=== PATIENT | female | born 1965 | race Caucasian/White ===

== ENCOUNTER 2024-01-27 08:15 | Outpatient (RCR) | payer OTHER, SELFPAY ==
--- NOTE | 2023-10-17 14:30 | PT.OIE ---
Current Diagnoses Pain in right knee (10/17/23) Stiffness of right knee, not elsewhere classified (10/17/23) Other abnormalities of gait and mobility (10/17/23) Aftercare following joint replacement surgery (10/17/23) Presence of right artificial knee joint (10/17/23) Visit Care Team Role Provider Type Ernesto Garland MD Attending Provider Non-Staff Referring Provider Specialty: Orthopedics Address: [address] [place] [address], [id number] Email: Physical Therapy Initial Evaluation PT-OP-A Visit Information Start: 10/17/23 17:48 Freq: Status: Active Protocol: Document 10/17/23 13:45 DCW (Rec: 10/17/23 17:55 DCW [id number]) Out-Patient Physical Therapy Visit Information Visit Information Visit Type Initial Evaluation Visit Start Time 13:45 Visit Stop Time 14:30 Visit Number 1 Number of ERP ANALYST Visits 0 Evaluation Information Evaluation Date 10/17/23 PT-OP-B Current Condition Start: 10/17/23 17:48 Freq: Status: Active Protocol: Document 10/17/23 13:45 DCW (Rec: 10/17/23 17:55 DCW [id number]) Current Condition History of Current Condition Onset Date 10/10/23 Current Complaints Right knee pain and stiffness s/p R TKA History of Current Condition Pt is a 58 year old female presenting one week s/p right TKA. Pt notes biggest current limiting factor is pain. Feels post-op swelling and tightness is greatly restricting her mobility. Has been consistent so far with post-op HEP, including ankle pumps, heel slides, SAQ, LAQ, and knee flexion/extension stretches. Pt using FWW for gait, heavily using UEs for stability. Has been wearing compression stockings and icing regularly. Treatment Goals Patient/Caregiver Goals Long-term goal is to return to competitive roller skating PT-OP-C Subjective Start: 10/17/23 17:48 Freq: Status: Active Protocol: Document 10/17/23 13:45 DCW (Rec: 10/18/23 09:33 DCW [id number]) OP-PT Subjective Patient Comments Patient Comments Pt reports pain is currently her biggest complaint. Is currently better controlled with pain meds. Patient Questionnaires Lower Extremity Functional Scale LEFS Score 6/80 = 7.5% OP-PT Pain Assessment Pain Assessment Grid Paper Pain Assessment Grid Completed Yes Location Right Knee Intensity 4 Scale Used Numeric (0 - 10) Description Aching,Tightness,Throbbing Frequency Constant PT-OP-E Functional Tests Start: 10/17/23 17:48 Freq: Status: Active Protocol: Document 10/17/23 13:45 DCW (Rec: 10/18/23 09:33 DCW [id number]) Functional Tests 2 Minute Walk Test Distance 140' Device Used FWW Comments 1.17 ft/sec PT-OP-G Mobility & Gait Start: 10/17/23 17:48 Freq: Status: Active Protocol: Document 10/17/23 13:45 DCW (Rec: 10/18/23 09:33 DCW [id number]) OP Gait Assessment Comments Gait Comments Ambulates with no right knee flexion, moderate right antalgia. Pt uses a step- through gait pattern and heavily relies on her UEs for support. Stair Climbing Evaluation Evaluation Level of Assist On Stairs Contact Guard Assistance Devices Stair Climbing Assistive Devices Left Railing,Right Railing Technique/Endurance Stair Climbing Direction Ascend and Descend Stair Climbing Technique Step to Step Number of Steps Climbed 4 PT-OP-K Range of Motion Start: 10/17/23 17:48 Freq: Status: Active Protocol: Document 10/17/23 13:45 DCW (Rec: 10/17/23 17:55 DCW [id number]) Knee Goniometric Range of Motion Knee Right Knee ROM WFL No Patient Position Supine Flexion Active (degrees) 57 Flexion Passive (degrees) 65 Extension Active (degrees) 11 Extension Passive (degrees) 10 Knee ROM Limitations Knee ROM Limitations Soft Tissue Tightness,Muscle Weakness,Muscle Tone,Pain, Swelling PT-OP-M Strength Start: 10/17/23 17:48 Freq: Status: Active Protocol: Document 10/17/23 13:45 DCW (Rec: 10/18/23 09:33 DCW [id number]) Knee Strength Knee Manual Muscle Testing Right Flexion (S2) 2- Poor- Extension (L3) 2+ Poor+ PT-OP-Q Treatments Start: 10/17/23 17:48 Freq: Status: Active Protocol: Document 10/17/23 13:45 DCW (Rec: 10/17/23 17:55 DCW [id number]) Cardio Equipment Recumbent Bicycle Duration (Minutes) 8 Seat Position 2 Other Partial Rotations PT-OP-T Assessment and Plan Start: 10/17/23 17:48 Freq: Status: Active Protocol: Document 10/17/23 13:45 DCW (Rec: 10/18/23 09:41 DCW [id number]) Physical Therapy Assessment Rehab Potential Rehabilitation Potential Excellent Evaluation Complexity Number of Personal Factors/Comorbidities 1-2 Number of Body Systems Impaired 1-2 Clinical Presentation at Evaluation Stable Impairments Impairments Activity Tolerance,Functional Activities,Functional Mobility ,Gait,Integument,Pain,ROM,Soft Tissue Mobility,Strength, Transfers Goals Three Impairment Pt completes two minute walk test ambulating 140' Wood Tile Installer Goal (LTG) Pt to tolerate a full 6MWT without an assistive device, ambulating >1000' in order to demonstrate return to prior gait function LTG Duration 01/15/24 Two Impairment Right knee AROM limited 11?-57 ? Usp Goal (LTG) Pt to improve active knee ROM to 0?-120? 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 Pt is one week s/p R TKA, with expected limitations in ROM, strength, activity tolerance , and functional mobility, although is more limited in active flexion that expected at this point. Pt biggest limiting factor at this point is pain and edema. Should benefit greatly from skilled therapy focusing on edema and pain control, ROM, strengthening, gait/balance training, and improving activity tolerance. Physical Therapy Plan Frequency and Duration Frequency of Treatment 2x/Week Plan of Care Start Date 10/17/23 Plan of Care End Date 01/15/24 Therapeutic Interventions Therapeutic Interventions Balance Training,Gait Training ,Home Exercise Program,Joint Mobilizations,Manual Therapy, Neuromuscular Re-education, Patient/Caregiver Education, Self-Care/Home Management,Soft Tissue Mobilization,Taping, Therapeutic Activities, Therapeutic Exercises Modalities Cold Pack/Ice Massage,Electric Stimulation,Hot Packs, Ultrasound Next Visit Focus/Plan Next Note Type Treatment Note Next Visit Plan Knee ROM/strengthening, gait training
--- NOTE | 2023-10-17 14:30 | PT.OPPOC ---
Physical, Occupational & Speech Therapy At [facility] Current Diagnoses Pain in right knee (10/17/23) Stiffness of right knee, not elsewhere classified (10/17/23) Other abnormalities of gait and mobility (10/17/23) Aftercare following joint replacement surgery (10/17/23) Presence of right artificial knee joint (10/17/23) Visit Care Team Role Provider Type Ernesto Garland MD Attending Provider Non-Staff Referring Provider Specialty: Orthopedics Address: [address] [place] [address], [id number] Email: Plan Of Care PT-OP-T Assessment and Plan Start: 10/17/23 17:48 Freq: Status: Active Protocol: Document 10/17/23 13:45 DCW (Rec: 10/18/23 09:41 DCW [id number]) Physical Therapy Assessment Rehab Potential Rehabilitation Potential Excellent Evaluation Complexity Number of Personal Factors/Comorbidities 1-2 Number of Body Systems Impaired 1-2 Clinical Presentation at Evaluation Stable Impairments Impairments Activity Tolerance,Functional Activities,Functional Mobility ,Gait,Integument,Pain,ROM,Soft Tissue Mobility,Strength, Transfers Goals Three Impairment Pt completes two minute walk test ambulating 140' Detention Goal (LTG) Pt to tolerate a full 6MWT without an assistive device, ambulating >1000' in order to demonstrate return to prior gait function LTG Duration 01/15/24 Two Impairment Right knee AROM limited 11?-57 ? Detention Goal (LTG) Pt to improve active knee ROM to 0?-120? in order to return to prior levels of function and allow pt to return to hobby of competitive roller skating LTG Duration 01/15/24 One Impairment Pt does not have an appropriate home exercise program Short Term Goal (STG) Pt to be independent and compliant with an appropriate HEP STG Duration 11/17/23 Assessment Summary Assessment Pt presents with signs and symptoms consistent with referring diagnosis. Pt is one week s/p R TKA, with expected limitations in ROM, strength, activity tolerance, and functional mobility, although is more limited in active flexion that expected at this point. Pt biggest limiting factor at this point is pain and edema. Should benefit greatly from skilled therapy focusing on edema and pain control, ROM, strengthening, gait/balance training, and improving activity tolerance. Physical Therapy Plan Frequency and Duration Frequency of Treatment 2x/Week Plan of Care Start Date 10/17/23 Plan of Care End Date 01/15/24 Therapeutic Interventions Therapeutic Interventions Balance Training,Gait Training ,Home Exercise Program,Joint Mobilizations,Manual Therapy, Neuromuscular Re-education, Patient/Caregiver Education, Self-Care/Home Management,Soft Tissue Mobilization,Taping, Therapeutic Activities, Therapeutic Exercises Modalities Cold Pack/Ice Massage,Electric Stimulation,Hot Packs, Ultrasound Next Visit Focus/Plan Next Note Type Treatment Note Next Visit Plan Knee ROM/strengthening, gait training Plan of Care Dates Plan of Care Start Date 10/17/23 Plan of Care End Date 01/15/24 Electronically Signed by: Nicholas White, PT 10/18/23 0942 If you are in agreement with this Plan of Care, please return a signed and dated copy. I have reviewed this Plan of Care and certify that the skilled therapy services above are required to meet the patient?s needs. Physician Signature Date Printed Name and Credentials Clinical Instructor Signature Printed Name and Credentials
--- NOTE | 2023-10-20 14:33 | PT.OTN ---
Current Diagnoses Pain in right knee (10/20/23) Stiffness of right knee, not elsewhere classified (10/20/23) Other abnormalities of gait and mobility (10/20/23) Aftercare following joint replacement surgery (10/20/23) Presence of right artificial knee joint (10/20/23) Physical Therapy Treatment Note PT-OP-A Visit Information Start: 10/17/23 17:48 Freq: Status: Active Protocol: Document 10/20/23 13:45 DCW (Rec: 10/20/23 14:32 DCW [id number]) Out-Patient Physical Therapy Visit Information Visit Information Visit Type Treatment Note Visit Start Time 13:45 Visit Stop Time 14:30 Visit Number 2 Number of ANIMAL SHELTER SUPERVISOR Visits 0 Evaluation Information Evaluation Date 10/17/23 PT-OP-B Current Condition Start: 10/17/23 17:48 Freq: Status: Active Protocol: Document 10/17/23 13:45 DCW (Rec: 10/17/23 17:55 DCW [id number]) Current Condition History of Current Condition Onset Date 10/10/23 Current Complaints Right knee pain and stiffness s/p R TKA History of Current Condition Pt is a 58 year old female presenting one week s/p right TKA. Pt notes biggest current limiting factor is pain. Feels post-op swelling and tightness is greatly restricting her mobility. Has been consistent so far with post-op HEP, including ankle pumps, heel slides, SAQ, LAQ, and knee flexion/extension stretches. Pt using FWW for gait, heavily using UEs for stability. Has been wearing compression stockings and icing regularly. Treatment Goals Patient/Caregiver Goals Long-term goal is to return to competitive roller skating PT-OP-C Subjective Start: 10/17/23 17:48 Freq: Status: Active Protocol: Document 10/20/23 13:45 DCW (Rec: 10/20/23 14:33 DCW [id number]) OP-PT Subjective Patient Comments Patient Comments Pt still struggling with pain, but some things are a little better, so I should try to focus on that. PT-OP-E Functional Tests Start: 10/17/23 17:48 Freq: Status: Active Protocol: Document 10/17/23 13:45 DCW (Rec: 10/18/23 09:33 DCW [id number]) Functional Tests 2 Minute Walk Test Distance 140' Device Used FWW Comments 1.17 ft/sec PT-OP-G Mobility & Gait Start: 10/17/23 17:48 Freq: Status: Active Protocol: Document 10/17/23 13:45 DCW (Rec: 10/18/23 09:33 DCW [id number]) OP Gait Assessment Comments Gait Comments Ambulates with no right knee flexion, moderate right antalgia. Pt uses a step- through gait pattern and heavily relies on her UEs for support. Stair Climbing Evaluation Evaluation Level of Assist On Stairs Contact Guard Assistance Devices Stair Climbing Assistive Devices Left Railing,Right Railing Technique/Endurance Stair Climbing Direction Ascend and Descend Stair Climbing Technique Step to Step Number of Steps Climbed 4 PT-OP-K Range of Motion Start: 10/17/23 17:48 Freq: Status: Active Protocol: Document 10/17/23 13:45 DCW (Rec: 10/17/23 17:55 DCW [id number]) Knee Goniometric Range of Motion Knee Right Knee ROM WFL No Patient Position Supine Flexion Active (degrees) 57 Flexion Passive (degrees) 65 Extension Active (degrees) 11 Extension Passive (degrees) 10 Knee ROM Limitations Knee ROM Limitations Soft Tissue Tightness,Muscle Weakness,Muscle Tone,Pain, Swelling PT-OP-M Strength Start: 10/17/23 17:48 Freq: Status: Active Protocol: Document 10/17/23 13:45 DCW (Rec: 10/18/23 09:33 DCW [id number]) Knee Strength Knee Manual Muscle Testing Right Flexion (S2) 2- Poor- Extension (L3) 2+ Poor+ PT-OP-Q Treatments Start: 10/17/23 17:48 Freq: Status: Active Protocol: Document 10/20/23 13:45 DCW (Rec: 10/20/23 14:32 DCW [id number]) Cardio Equipment Recumbent Bicycle Duration (Minutes) 6 Seat Position 3 Other Partial Rotations Gym Equipment Shuttle Recovery Bilateral Squats Resistance 25# Shuttle Recovery Platform Stable Therapeutic Exercises Supine Exercises SAQ Supine Exercise Name SAQ Side right Standing Exercises Flexion Standing Exercise Name Step flexion stretch Side right TKE Standing Exercise Name TKE Side right Resistance lV 2 Manual Therapy Treatment Joint Mobilizations Right knee Joint R knee Direction A<->P Grade III PT-OP-T Assessment and Plan Start: 10/17/23 17:48 Freq: Status: Active Protocol: Document 10/20/23 13:45 DCW (Rec: 10/20/23 14:32 DCW [id number]) Physical Therapy Assessment Impairments Impairments Activity Tolerance,Functional Activities,Functional Mobility ,Gait,Integument,Pain,ROM,Soft Tissue Mobility,Strength, Transfers Goals Three Impairment Pt completes two minute walk test ambulating 140' Custodial Goal (LTG) Pt to tolerate a full 6MWT without an assistive device, ambulating >1000' in order to demonstrate return to prior gait function LTG Duration 01/15/24 Two Impairment Right knee AROM limited 11?-57 ? Data Warehouse Manager Goal (LTG) Pt to improve active knee ROM to 0?-120? in order to return to prior levels of function and allow pt to return to hobby of competitive eLearning Connectionser skating LTG Duration 01/15/24 One Impairment Pt does not have an appropriate home exercise program Short Term Goal (STG) Pt to be independent and compliant with an appropriate HEP STG Duration 11/17/23 Assessment Summary Assessment Initially exhibiting decreased flexion to start today's appointment, 55?, improved to 67? with stretching and manual treatment. Continue with current HEP, addition of SAQ. Physical Therapy Plan Frequency and Duration Frequency of Treatment 2x/Week Plan of Care Start Date 10/17/23 Plan of Care End Date 01/15/24 Therapeutic Interventions Therapeutic Interventions Balance Training,Gait Training ,Home Exercise Program,Joint Mobilizations,Manual Therapy, Neuromuscular Re-education, Patient/Caregiver Education, Self-Care/Home Management,Soft Tissue Mobilization,Taping, Therapeutic Activities, Therapeutic Exercises Modalities Cold Pack/Ice Massage,Electric Stimulation,Hot Packs, Ultrasound Next Visit Focus/Plan Next Note Type Treatment Note Next Visit Plan Knee ROM/strengthening, gait training
--- NOTE | 2023-10-25 16:23 | PT.OTN ---
Current Diagnoses Pain in right knee (10/25/23) Stiffness of right knee, not elsewhere classified (10/25/23) Other abnormalities of gait and mobility (10/25/23) Aftercare following joint replacement surgery (10/25/23) Presence of right artificial knee joint (10/25/23) Physical Therapy Treatment Note PT-OP-A Visit Information Start: 10/17/23 17:48 Freq: Status: Active Protocol: Document 10/25/23 14:36 SW (Rec: 10/25/23 15:05 SW [id number]) Out-Patient Physical Therapy Visit Information Visit Information Visit Type Treatment Note Visit Start Time 14:31 Visit Stop Time 15:11 Visit Number 3 Number of WASHER HAND Visits 1 PT-OP-B Current Condition Start: 10/17/23 17:48 Freq: Status: Active Protocol: Document 10/17/23 13:45 DCW (Rec: 10/17/23 17:55 DCW [id number]) Current Condition History of Current Condition Onset Date 10/10/23 Current Complaints Right knee pain and stiffness s/p R TKA History of Current Condition Pt is a 58 year old female presenting one week s/p right TKA. Pt notes biggest current limiting factor is pain. Feels post-op swelling and tightness is greatly restricting her mobility. Has been consistent so far with post-op HEP, including ankle pumps, heel slides, SAQ, LAQ, and knee flexion/extension stretches. Pt using FWW for gait, heavily using UEs for stability. Has been wearing compression stockings and icing regularly. Treatment Goals Patient/Caregiver Goals Long-term goal is to return to competitive roller skating PT-OP-C Subjective Start: 10/17/23 17:48 Freq: Status: Active Protocol: Document 10/25/23 14:36 SW (Rec: 10/25/23 15:05 SW [id number]) OP-PT Subjective Patient Comments Patient Comments Pt reports 3/10 pain at rest. Reports decreased pain since last session. Bruising around the leg is uncomfortable. PT-OP-E Functional Tests Start: 10/17/23 17:48 Freq: Status: Active Protocol: Document 10/17/23 13:45 DCW (Rec: 10/18/23 09:33 DCW [id number]) Functional Tests 2 Minute Walk Test Distance 140' Device Used FWW Comments 1.17 ft/sec PT-OP-G Mobility & Gait Start: 10/17/23 17:48 Freq: Status: Active Protocol: Document 10/17/23 13:45 DCW (Rec: 10/18/23 09:33 DCW [id number]) OP Gait Assessment Comments Gait Comments Ambulates with no right knee flexion, moderate right antalgia. Pt uses a step- through gait pattern and heavily relies on her UEs for support. Stair Climbing Evaluation Evaluation Level of Assist On Stairs Contact Guard Assistance Devices Stair Climbing Assistive Devices Left Railing,Right Railing Technique/Endurance Stair Climbing Direction Ascend and Descend Stair Climbing Technique Step to Step Number of Steps Climbed 4 PT-OP-K Range of Motion Start: 10/17/23 17:48 Freq: Status: Active Protocol: Document 10/17/23 13:45 DCW (Rec: 10/17/23 17:55 DCW [id number]) Knee Goniometric Range of Motion Knee Right Knee ROM WFL No Patient Position Supine Flexion Active (degrees) 57 Flexion Passive (degrees) 65 Extension Active (degrees) 11 Extension Passive (degrees) 10 Knee ROM Limitations Knee ROM Limitations Soft Tissue Tightness,Muscle Weakness,Muscle Tone,Pain, Swelling PT-OP-M Strength Start: 10/17/23 17:48 Freq: Status: Active Protocol: Document 10/17/23 13:45 DCW (Rec: 10/18/23 09:33 DCW [id number]) Knee Strength Knee Manual Muscle Testing Right Flexion (S2) 2- Poor- Extension (L3) 2+ Poor+ PT-OP-Q Treatments Start: 10/17/23 17:48 Freq: Status: Active Protocol: Document 10/25/23 14:36 SW (Rec: 10/25/23 15:05 SW [id number]) Gym Equipment Shuttle Recovery Bilateral Squats Resistance 25# Shuttle Recovery Platform Stable Therapeutic Exercises Supine Exercises SAQ Supine Exercise Name SAQ Side right Sitting Exercises Flexion Sitting Exercise Name Knee flexion stretch Standing Exercises Flexion Standing Exercise Name Step flexion stretch Side right TKE Standing Exercise Name TKE Side right Resistance lV 2 Manual Therapy Treatment Joint Mobilizations Right knee Joint R knee Direction A<->P Grade III PT-OP-T Assessment and Plan Start: 10/17/23 17:48 Freq: Status: Active Protocol: Document 10/25/23 14:36 SW (Rec: 10/25/23 15:05 [id number]) Physical Therapy Assessment Goals Three Impairment Pt completes two minute walk test ambulating 140' Casino Gaming Inspector Goal (LTG) Pt to tolerate a full 6MWT without an assistive device, ambulating >1000' in order to demonstrate return to prior gait function LTG Duration 01/15/24 Two Impairment Right knee AROM limited 11?-57 ? Casino Gaming Inspector Goal (LTG) Pt to improve active knee ROM to 0?-120? in order to return to prior levels of function and allow pt to return to hobby of competitive [employer] skating LTG Duration 01/15/24 One Impairment Pt does not have an appropriate home exercise program Short Term Goal (STG) Pt to be independent and compliant with an appropriate HEP STG Duration 11/17/23 Assessment Summary Assessment Initially pt started out with 47 degrees of knee flexion AROM, 58 degrees post session AROM with improved knee flexion observed ambulating out of session. Focused on knee flexion this session to progress decreased knee flexion ROM. Pt education on taking breaks between icing instead of leaving ice machine on for prolonged periods of time to prevent adverse reaction. Physical Therapy Plan Frequency and Duration Frequency of Treatment 2x/Week Plan of Care Start Date 10/17/23 Plan of Care End Date 01/15/24 Therapeutic Interventions Therapeutic Interventions Balance Training,Gait Training ,Home Exercise Program,Joint Mobilizations,Manual Therapy, Neuromuscular Re-education, Patient/Caregiver Education, Self-Care/Home Management,Soft Tissue Mobilization,Taping, Therapeutic Activities, Therapeutic Exercises Modalities Cold Pack/Ice Massage,Electric Stimulation,Hot Packs, Ultrasound Next Visit Focus/Plan Next Note Type Treatment Note Next Visit Plan Knee ROM/strengthening, gait training
--- NOTE | 2023-10-28 10:30 | PT.OTN ---
Current Diagnoses Pain in right knee (10/28/23) Stiffness of right knee, not elsewhere classified (10/28/23) Other abnormalities of gait and mobility (10/28/23) Aftercare following joint replacement surgery (10/28/23) Presence of right artificial knee joint (10/28/23) Physical Therapy Treatment Note PT-OP-A Visit Information Start: 10/17/23 17:48 Freq: Status: Active Protocol: Document 10/28/23 09:45 DCW (Rec: 10/28/23 10:30 DCW [id number]) Out-Patient Physical Therapy Visit Information Visit Information Visit Type Treatment Note Visit Start Time 09:45 Visit Stop Time 10:35 Visit Number 4 Number of BUILDING MAINTENANCE SUPERVISOR Visits 0 Evaluation Information Evaluation Date 10/17/23 PT-OP-B Current Condition Start: 10/17/23 17:48 Freq: Status: Active Protocol: Document 10/17/23 13:45 DCW (Rec: 10/17/23 17:55 DCW [id number]) Current Condition History of Current Condition Onset Date 10/10/23 Current Complaints Right knee pain and stiffness s/p R TKA History of Current Condition Pt is a 58 year old female presenting one week s/p right TKA. Pt notes biggest current limiting factor is pain. Feels post-op swelling and tightness is greatly restricting her mobility. Has been consistent so far with post-op HEP, including ankle pumps, heel slides, SAQ, LAQ, and knee flexion/extension stretches. Pt using FWW for gait, heavily using UEs for stability. Has been wearing compression stockings and icing regularly. Treatment Goals Patient/Caregiver Goals Long-term goal is to return to competitive roller skating PT-OP-C Subjective Start: 10/17/23 17:48 Freq: Status: Active Protocol: Document 10/28/23 09:45 DCW (Rec: 10/28/23 10:30 DCW [id number]) OP-PT Subjective Patient Comments Patient Comments Pt had surgical follow-up, happy with overall extension, but agrees that pt having poor flexion. Has next follow-up at the end of October. PT-OP-E Functional Tests Start: 10/17/23 17:48 Freq: Status: Active Protocol: Document 10/17/23 13:45 DCW (Rec: 10/18/23 09:33 DCW [id number]) Functional Tests 2 Minute Walk Test Distance 140' Device Used FWW Comments 1.17 ft/sec PT-OP-G Mobility & Gait Start: 10/17/23 17:48 Freq: Status: Active Protocol: Document 10/17/23 13:45 DCW (Rec: 10/18/23 09:33 DCW [id number]) OP Gait Assessment Comments Gait Comments Ambulates with no right knee flexion, moderate right antalgia. Pt uses a step- through gait pattern and heavily relies on her UEs for support. Stair Climbing Evaluation Evaluation Level of Assist On Stairs Contact Guard Assistance Devices Stair Climbing Assistive Devices Left Railing,Right Railing Technique/Endurance Stair Climbing Direction Ascend and Descend Stair Climbing Technique Step to Step Number of Steps Climbed 4 PT-OP-K Range of Motion Start: 10/17/23 17:48 Freq: Status: Active Protocol: Document 10/17/23 13:45 DCW (Rec: 10/17/23 17:55 DCW [id number]) Knee Goniometric Range of Motion Knee Right Knee ROM WFL No Patient Position Supine Flexion Active (degrees) 57 Flexion Passive (degrees) 65 Extension Active (degrees) 11 Extension Passive (degrees) 10 Knee ROM Limitations Knee ROM Limitations Soft Tissue Tightness,Muscle Weakness,Muscle Tone,Pain, Swelling PT-OP-M Strength Start: 10/17/23 17:48 Freq: Status: Active Protocol: Document 10/17/23 13:45 DCW (Rec: 10/18/23 09:33 DCW [id number]) Knee Strength Knee Manual Muscle Testing Right Flexion (S2) 2- Poor- Extension (L3) 2+ Poor+ PT-OP-Q Treatments Start: 10/17/23 17:48 Freq: Status: Active Protocol: Document 10/28/23 09:45 DCW (Rec: 10/28/23 10:30 DCW [id number]) Cardio Equipment Recumbent Bicycle Duration (Minutes) 6 Seat Position 3 Other Partial Rotations Gym Equipment Shuttle Recovery Bilateral Squats Resistance 50# Shuttle Recovery Platform Stable Therapeutic Exercises Sitting Exercises Flexion Sitting Exercise Name Knee flexion stretch Manual Therapy Treatment Joint Mobilizations Right knee Joint R knee Direction A<->P Grade III PT-OP-R Modalities Start: 10/28/23 10:30 Freq: Status: Active Protocol: Document 10/28/23 09:45 DCW (Rec: 10/28/23 10:30 DCW [id number]) Hot Pack/Cold Pack Treatment Cold Pack Location R knee Patient Position Hooklying PT-OP-T Assessment and Plan Start: 10/17/23 17:48 Freq: Status: Active Protocol: Document 10/28/23 09:45 DCW (Rec: 10/28/23 10:30 DCW [id number]) Physical Therapy Assessment Impairments Impairments Activity Tolerance,Functional Activities,Functional Mobility ,Gait,Integument,Pain,ROM,Soft Tissue Mobility,Strength, Transfers Goals Three Impairment Pt completes two minute walk test ambulating 140' Application Services Manager Goal (LTG) Pt to tolerate a full 6MWT without an assistive device, ambulating >1000' in order to demonstrate return to prior gait function LTG Duration 01/15/24 Two Impairment Right knee AROM limited 11?-57 ? Intermediate Goal (LTG) Pt to improve active knee ROM to 0?-120? in order to return to prior levels of function and allow pt to return to hobby of competitive [employer] skating LTG Duration 01/15/24 One Impairment Pt does not have an appropriate home exercise program Short Term Goal (STG) Pt to be independent and compliant with an appropriate HEP STG Duration 11/17/23 Assessment Summary Assessment Pt continues to really struggle with flexion, limitations secondary to pain, joint effusion, and post-op bandaging. Spent increased time today focusing on joint mobs and flexion stretching. Physical Therapy Plan Frequency and Duration Frequency of Treatment 2x/Week Plan of Care Start Date 10/17/23 Plan of Care End Date 01/15/24 Therapeutic Interventions Therapeutic Interventions Balance Training,Gait Training ,Home Exercise Program,Joint Mobilizations,Manual Therapy, Neuromuscular Re-education, Patient/Caregiver Education, Self-Care/Home Management,Soft Tissue Mobilization,Taping, Therapeutic Activities, Therapeutic Exercises Modalities Cold Pack/Ice Massage,Electric Stimulation,Hot Packs, Ultrasound Next Visit Focus/Plan Next Note Type Treatment Note Next Visit Plan Knee ROM/strengthening, gait training
--- NOTE | 2023-10-31 12:40 | PT.OTN ---
Current Diagnoses Pain in right knee (10/31/23) Stiffness of right knee, not elsewhere classified (10/31/23) Other abnormalities of gait and mobility (10/31/23) Aftercare following joint replacement surgery (10/31/23) Presence of right artificial knee joint (10/31/23) Physical Therapy Treatment Note PT-OP-A Visit Information Start: 10/17/23 17:48 Freq: Status: Active Protocol: Document 10/31/23 11:55 DCW (Rec: 10/31/23 12:40 DCW [id number]) Out-Patient Physical Therapy Visit Information Visit Information Visit Type Treatment Note Visit Start Time 11:55 Visit Stop Time 12:45 Visit Number 5 Number of HOUSE STEWARD/STEWARDESS Visits 0 Evaluation Information Evaluation Date 10/17/23 PT-OP-B Current Condition Start: 10/17/23 17:48 Freq: Status: Active Protocol: Document 10/17/23 13:45 DCW (Rec: 10/17/23 17:55 DCW [id number]) Current Condition History of Current Condition Onset Date 10/10/23 Current Complaints Right knee pain and stiffness s/p R TKA History of Current Condition Pt is a 58 year old female presenting one week s/p right TKA. Pt notes biggest current limiting factor is pain. Feels post-op swelling and tightness is greatly restricting her mobility. Has been consistent so far with post-op HEP, including ankle pumps, heel slides, SAQ, LAQ, and knee flexion/extension stretches. Pt using FWW for gait, heavily using UEs for stability. Has been wearing compression stockings and icing regularly. Treatment Goals Patient/Caregiver Goals Long-term goal is to return to competitive roller skating PT-OP-C Subjective Start: 10/17/23 17:48 Freq: Status: Active Protocol: Document 10/31/23 11:55 DCW (Rec: 10/31/23 12:40 DCW [id number]) OP-PT Subjective Patient Comments Patient Comments Pt had a good workout Tuesday , notes she was pretty sore afterward. Has been able to do more stretching with hip flexors PT-OP-E Functional Tests Start: 10/17/23 17:48 Freq: Status: Active Protocol: Document 10/17/23 13:45 DCW (Rec: 10/18/23 09:33 DCW [id number]) Functional Tests 2 Minute Walk Test Distance 140' Device Used FWW Comments 1.17 ft/sec PT-OP-G Mobility & Gait Start: 10/17/23 17:48 Freq: Status: Active Protocol: Document 10/17/23 13:45 DCW (Rec: 10/18/23 09:33 DCW [id number]) OP Gait Assessment Comments Gait Comments Ambulates with no right knee flexion, moderate right antalgia. Pt uses a step- through gait pattern and heavily relies on her UEs for support. Stair Climbing Evaluation Evaluation Level of Assist On Stairs Contact Guard Assistance Devices Stair Climbing Assistive Devices Left Railing,Right Railing Technique/Endurance Stair Climbing Direction Ascend and Descend Stair Climbing Technique Step to Step Number of Steps Climbed 4 PT-OP-K Range of Motion Start: 10/17/23 17:48 Freq: Status: Active Protocol: Document 10/17/23 13:45 DCW (Rec: 10/17/23 17:55 DCW [id number]) Knee Goniometric Range of Motion Knee Right Knee ROM WFL No Patient Position Supine Flexion Active (degrees) 57 Flexion Passive (degrees) 65 Extension Active (degrees) 11 Extension Passive (degrees) 10 Knee ROM Limitations Knee ROM Limitations Soft Tissue Tightness,Muscle Weakness,Muscle Tone,Pain, Swelling PT-OP-M Strength Start: 10/17/23 17:48 Freq: Status: Active Protocol: Document 10/17/23 13:45 DCW (Rec: 10/18/23 09:33 DCW [id number]) Knee Strength Knee Manual Muscle Testing Right Flexion (S2) 2- Poor- Extension (L3) 2+ Poor+ PT-OP-Q Treatments Start: 10/17/23 17:48 Freq: Status: Active Protocol: Document 10/31/23 11:55 DCW (Rec: 10/31/23 12:40 DCW [id number]) Cardio Equipment Recumbent Bicycle Duration (Minutes) 6 Seat Position 3 Other Partial Rotations Gym Equipment Shuttle Recovery Bilateral Squats Resistance 50# Shuttle Recovery Platform Stable Therapeutic Ball Knee Flexion Exercise Details Knee Flexion /c Strap Ball Size/Color Red - 55 cm Body Position Supine Therapeutic Exercises Supine Exercises Wall slides Supine Exercise Name Wall slides into flexion stretch SAQ Supine Exercise Name SAQ Side right Manual Therapy Treatment Joint Mobilizations Patellar Joint R Petella Direction Inferior<->Superior Grade III Body Position Hooklying Right knee Joint R knee Direction A<->P Grade III Body Position Hooklying PT-OP-R Modalities Start: 10/28/23 10:30 Freq: Status: Active Protocol: Document 10/31/23 11:55 DCW (Rec: 10/31/23 12:40 DCW [id number]) Hot Pack/Cold Pack Treatment Cold Pack Location R knee Patient Position Hooklying Patient Tolerance Good PT-OP-T Assessment and Plan Start: 10/17/23 17:48 Freq: Status: Active Protocol: Document 10/31/23 11:55 DCW (Rec: 10/31/23 12:40 DCW [id number]) Physical Therapy Assessment Impairments Impairments Activity Tolerance,Functional Activities,Functional Mobility ,Gait,Integument,Pain,ROM,Soft Tissue Mobility,Strength, Transfers Goals Three Impairment Pt completes two minute walk test ambulating 140' Fdc Goal (LTG) Pt to tolerate a full 6MWT without an assistive device, ambulating >1000' in order to demonstrate return to prior gait function LTG Duration 01/15/24 Two Impairment Right knee AROM limited 11?-57 ? Nurse Monitoring Goal (LTG) Pt to improve active knee ROM to 0?-120? in order to return to prior levels of function and allow pt to return to hobby of competitive roller skating LTG Duration 01/15/24 One Impairment Pt does not have an appropriate home exercise program Short Term Goal (STG) Pt to be independent and compliant with an appropriate HEP STG Duration 11/17/23 Assessment Summary Assessment Showing some mild improvements with flexion, able to get to 65? with wall slide. Extension looking very good. Pt demonstrating improvement with knee flexion during gait. Physical Therapy Plan Frequency and Duration Frequency of Treatment 2x/Week Plan of Care Start Date 10/17/23 Plan of Care End Date 01/15/24 Therapeutic Interventions Therapeutic Interventions Balance Training,Gait Training ,Home Exercise Program,Joint Mobilizations,Manual Therapy, Neuromuscular Re-education, Patient/Caregiver Education, Self-Care/Home Management,Soft Tissue Mobilization,Taping, Therapeutic Activities, Therapeutic Exercises Modalities Cold Pack/Ice Massage,Electric Stimulation,Hot Packs, Ultrasound Next Visit Focus/Plan Next Note Type Treatment Note Next Visit Plan Knee ROM/strengthening, gait training
--- NOTE | 2023-11-04 11:20 | PT.OTN ---
Current Diagnoses Pain in right knee (11/04/23) Stiffness of right knee, not elsewhere classified (11/04/23) Other abnormalities of gait and mobility (11/04/23) Aftercare following joint replacement surgery (11/04/23) Presence of right artificial knee joint (11/04/23) Physical Therapy Treatment Note PT-OP-A Visit Information Start: 10/17/23 17:48 Freq: Status: Active Protocol: Document 11/04/23 10:00 NBM (Rec: 11/04/23 11:20 NBM [id number]) Out-Patient Physical Therapy Visit Information Visit Information Visit Type Treatment Note Visit Start Time 10:30 Visit Stop Time 11:16 Visit Number 6 Number of WASTEWATER OPERATOR Visits 1 PT-OP-B Current Condition Start: 10/17/23 17:48 Freq: Status: Active Protocol: Document 10/17/23 13:45 DCW (Rec: 10/17/23 17:55 DCW [id number]) Current Condition History of Current Condition Onset Date 10/10/23 Current Complaints Right knee pain and stiffness s/p R TKA History of Current Condition Pt is a 58 year old female presenting one week s/p right TKA. Pt notes biggest current limiting factor is pain. Feels post-op swelling and tightness is greatly restricting her mobility. Has been consistent so far with post-op HEP, including ankle pumps, heel slides, SAQ, LAQ, and knee flexion/extension stretches. Pt using FWW for gait, heavily using UEs for stability. Has been wearing compression stockings and icing regularly. Treatment Goals Patient/Caregiver Goals Long-term goal is to return to competitive roller skating PT-OP-C Subjective Start: 10/17/23 17:48 Freq: Status: Active Protocol: Document 11/04/23 10:00 NBM (Rec: 11/04/23 11:20 NBM [id number]) OP-PT Subjective Patient Comments Patient Comments Carina reports she pushes through her ex's three times a day and things seem to be getting better bit by bit. PT-OP-E Functional Tests Start: 10/17/23 17:48 Freq: Status: Active Protocol: Document 10/17/23 13:45 DCW (Rec: 10/18/23 09:33 DCW [id number]) Functional Tests 2 Minute Walk Test Distance 140' Device Used FWW Comments 1.17 ft/sec PT-OP-G Mobility & Gait Start: 10/17/23 17:48 Freq: Status: Active Protocol: Document 10/17/23 13:45 DCW (Rec: 10/18/23 09:33 DCW [id number]) OP Gait Assessment Comments Gait Comments Ambulates with no right knee flexion, moderate right antalgia. Pt uses a step- through gait pattern and heavily relies on her UEs for support. Stair Climbing Evaluation Evaluation Level of Assist On Stairs Contact Guard Assistance Devices Stair Climbing Assistive Devices Left Railing,Right Railing Technique/Endurance Stair Climbing Direction Ascend and Descend Stair Climbing Technique Step to Step Number of Steps Climbed 4 PT-OP-K Range of Motion Start: 10/17/23 17:48 Freq: Status: Active Protocol: Document 10/17/23 13:45 DCW (Rec: 10/17/23 17:55 DCW [id number]) Knee Goniometric Range of Motion Knee Right Knee ROM WFL No Patient Position Supine Flexion Active (degrees) 57 Flexion Passive (degrees) 65 Extension Active (degrees) 11 Extension Passive (degrees) 10 Knee ROM Limitations Knee ROM Limitations Soft Tissue Tightness,Muscle Weakness,Muscle Tone,Pain, Swelling PT-OP-M Strength Start: 10/17/23 17:48 Freq: Status: Active Protocol: Document 10/17/23 13:45 DCW (Rec: 10/18/23 09:33 DCW [id number]) Knee Strength Knee Manual Muscle Testing Right Flexion (S2) 2- Poor- Extension (L3) 2+ Poor+ PT-OP-Q Treatments Start: 10/17/23 17:48 Freq: Status: Active Protocol: Document 11/04/23 10:00 NBM (Rec: 11/04/23 11:20 NBM [id number]) Cardio Equipment Recumbent Bicycle Duration (Minutes) 6 Seat Position 3 Other Partial Rotations, cued for breathwork Gym Equipment Shuttle Recovery Bilateral Squats Resistance 50# Shuttle Recovery Platform Stable Reps/Time w/ breathwork Therapeutic Exercises Supine Exercises heel slides Side right Equipment Used slider sheet Reps/Minutes x10, x1 w/ overpressure Wall slides Supine Exercise Name Wall slides into flexion stretch Side right Equipment Used slider sheet Sitting Exercises Flexion Sitting Exercise Name Knee flex stretch: CKC edge of chair 2.[place] PROM foot on scooterboard Side right Equipment Used standard chair; scooterboard Reps/Minutes x10 ea Standing Exercises TKE Standing Exercise Name TKE Side right Resistance lV 2 Reps/Minutes x10, 10x2 breath hold Comments initial cues for full extension PT-OP-R Modalities Start: 10/28/23 10:30 Freq: Status: Active Protocol: Document 10/31/23 11:55 DCW (Rec: 10/31/23 12:40 DCW [id number]) Hot Pack/Cold Pack Treatment Cold Pack Location R knee Patient Position Hooklying Patient Tolerance Good PT-OP-T Assessment and Plan Start: 10/17/23 17:48 Freq: Status: Active Protocol: Document 11/04/23 10:00 NBM (Rec: 11/04/23 11:20 NBM [id number]) Physical Therapy Assessment Goals Three Impairment Pt completes two minute walk test ambulating 140' Custodial Goal (LTG) Pt to tolerate a full 6MWT without an assistive device, ambulating >1000' in order to demonstrate return to prior gait function LTG Duration 01/15/24 Two Impairment Right knee AROM limited 11?-57 ? Custodial Goal (LTG) Pt to improve active knee ROM to 0?-120? 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 Knee flexion improves on Shuttle Recovery from 61 deg to 69 deg , in sitting w/ foot on scooterboard and overpressure to 72 deg; supine from 68 deg to 72 deg AROM and 74 deg w/ overpressure. Pt's self- awareness for breathwork improves w/ initial cueing and repetition. Wall slides added to HEP using L knee flexion ROM as visual guide for R. Cryotherapy end of session. Pt notified Mon appt cancelled due to needing insurance authorization. Physical Therapy Plan Frequency and Duration Frequency of Treatment 2x/Week Plan of Care Start Date 10/17/23 Plan of Care End Date 01/15/24 Therapeutic Interventions Therapeutic Interventions Balance Training,Gait Training ,Home Exercise Program,Joint Mobilizations,Manual Therapy, Neuromuscular Re-education, Patient/Caregiver Education, Self-Care/Home Management,Soft Tissue Mobilization,Taping, Therapeutic Activities, Therapeutic Exercises Modalities Cold Pack/Ice Massage,Electric Stimulation,Hot Packs, Ultrasound Next Visit Focus/Plan Next Note Type Treatment Note Next Visit Plan Knee ROM/strengthening, gait training
--- NOTE | 2023-11-04 13:00 | PT.OTN ---
Current Diagnoses Pain in right knee (11/04/23) Stiffness of right knee, not elsewhere classified (11/04/23) Other abnormalities of gait and mobility (11/04/23) Aftercare following joint replacement surgery (11/04/23) Presence of right artificial knee joint (11/04/23) Physical Therapy Treatment Note PT-OP-A Visit Information Start: 10/17/23 17:48 Freq: Status: Active Protocol: Document 11/04/23 10:00 NBM (Rec: 11/04/23 11:20 NBM [id number]) Out-Patient Physical Therapy Visit Information Visit Information Visit Type Treatment Note Visit Start Time 10:30 Visit Stop Time 11:16 Visit Number 6 Number of BANKER MASON Visits 1 PT-OP-B Current Condition Start: 10/17/23 17:48 Freq: Status: Active Protocol: Document 10/17/23 13:45 DCW (Rec: 10/17/23 17:55 DCW [id number]) Current Condition History of Current Condition Onset Date 10/10/23 Current Complaints Right knee pain and stiffness s/p R TKA History of Current Condition Pt is a 58 year old female presenting one week s/p right TKA. Pt notes biggest current limiting factor is pain. Feels post-op swelling and tightness is greatly restricting her mobility. Has been consistent so far with post-op HEP, including ankle pumps, heel slides, SAQ, LAQ, and knee flexion/extension stretches. Pt using FWW for gait, heavily using UEs for stability. Has been wearing compression stockings and icing regularly. Treatment Goals Patient/Caregiver Goals Long-term goal is to return to competitive roller skating PT-OP-C Subjective Start: 10/17/23 17:48 Freq: Status: Active Protocol: Document 11/04/23 10:00 NBM (Rec: 11/04/23 11:20 NBM [id number]) OP-PT Subjective Patient Comments Patient Comments Carina reports she pushes through her ex's three times a day and things seem to be getting better bit by bit. PT-OP-E Functional Tests Start: 10/17/23 17:48 Freq: Status: Active Protocol: Document 10/17/23 13:45 DCW (Rec: 10/18/23 09:33 DCW [id number]) Functional Tests 2 Minute Walk Test Distance 140' Device Used FWW Comments 1.17 ft/sec PT-OP-G Mobility & Gait Start: 10/17/23 17:48 Freq: Status: Active Protocol: Document 10/17/23 13:45 DCW (Rec: 10/18/23 09:33 DCW [id number]) OP Gait Assessment Comments Gait Comments Ambulates with no right knee flexion, moderate right antalgia. Pt uses a step- through gait pattern and heavily relies on her UEs for support. Stair Climbing Evaluation Evaluation Level of Assist On Stairs Contact Guard Assistance Devices Stair Climbing Assistive Devices Left Railing,Right Railing Technique/Endurance Stair Climbing Direction Ascend and Descend Stair Climbing Technique Step to Step Number of Steps Climbed 4 PT-OP-K Range of Motion Start: 10/17/23 17:48 Freq: Status: Active Protocol: Document 10/17/23 13:45 DCW (Rec: 10/17/23 17:55 DCW [id number]) Knee Goniometric Range of Motion Knee Right Knee ROM WFL No Patient Position Supine Flexion Active (degrees) 57 Flexion Passive (degrees) 65 Extension Active (degrees) 11 Extension Passive (degrees) 10 Knee ROM Limitations Knee ROM Limitations Soft Tissue Tightness,Muscle Weakness,Muscle Tone,Pain, Swelling PT-OP-M Strength Start: 10/17/23 17:48 Freq: Status: Active Protocol: Document 10/17/23 13:45 DCW (Rec: 10/18/23 09:33 DCW [id number]) Knee Strength Knee Manual Muscle Testing Right Flexion (S2) 2- Poor- Extension (L3) 2+ Poor+ PT-OP-Q Treatments Start: 10/17/23 17:48 Freq: Status: Active Protocol: Document 11/04/23 10:00 NBM (Rec: 11/04/23 11:20 NBM [id number]) Cardio Equipment Recumbent Bicycle Duration (Minutes) 6 Seat Position 3 Other Partial Rotations, cued for breathwork Gym Equipment Shuttle Recovery Bilateral Squats Resistance 50# Shuttle Recovery Platform Stable Reps/Time w/ breathwork Therapeutic Exercises Supine Exercises heel slides Side right Equipment Used slider sheet Reps/Minutes x10, x1 w/ overpressure Wall slides Supine Exercise Name Wall slides into flexion stretch Side right Equipment Used slider sheet Sitting Exercises Flexion Sitting Exercise Name Knee flex stretch: [facility] edge of chair 2.[place] PROM foot on scooterboard Side right Equipment Used standard chair; scooterboard Reps/Minutes x10 ea Standing Exercises TKE Standing Exercise Name TKE Side right Resistance lV 2 Reps/Minutes x10, 10x2 breath hold Comments initial cues for full extension PT-OP-R Modalities Start: 10/28/23 10:30 Freq: Status: Active Protocol: Document 11/04/23 10:00 NBM (Rec: 11/04/23 13:00 NBM [id number]) Hot Pack/Cold Pack Treatment Cold Pack Location R knee Patient Position Hooklying Patient Tolerance Good PT-OP-T Assessment and Plan Start: 10/17/23 17:48 Freq: Status: Active Protocol: Document 11/04/23 10:00 NBM (Rec: 11/04/23 11:20 NBM [id number]) Physical Therapy Assessment Goals Three Impairment Pt completes two minute walk test ambulating 140' Longterm Goal (LTG) Pt to tolerate a full 6MWT without an assistive device, ambulating >1000' in order to demonstrate return to prior gait function LTG Duration 01/15/24 Two Impairment Right knee AROM limited 11?-57 ? Longterm Goal (LTG) Pt to improve active knee ROM to 0?-120? 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 Knee flexion improves on Shuttle Recovery from 61 deg to 69 deg , in sitting w/ foot on scooterboard and overpressure to 72 deg; supine from 68 deg to 72 deg AROM and 74 deg w/ overpressure. Pt's self- awareness for breathwork improves w/ initial cueing and repetition. Wall slides added to HEP using L knee flexion ROM as visual guide for R. Cryotherapy end of session. Pt notified Mon appt cancelled due to needing insurance authorization. Physical Therapy Plan Frequency and Duration Frequency of Treatment 2x/Week Plan of Care Start Date 10/17/23 Plan of Care End Date 01/15/24 Therapeutic Interventions Therapeutic Interventions Balance Training,Gait Training ,Home Exercise Program,Joint Mobilizations,Manual Therapy, Neuromuscular Re-education, Patient/Caregiver Education, Self-Care/Home Management,Soft Tissue Mobilization,Taping, Therapeutic Activities, Therapeutic Exercises Modalities Cold Pack/Ice Massage,Electric Stimulation,Hot Packs, Ultrasound Next Visit Focus/Plan Next Note Type Treatment Note Next Visit Plan Knee ROM/strengthening, gait training
--- NOTE | 2023-11-09 15:24 | PT.OTN ---
Current Diagnoses Pain in right knee (11/09/23) Stiffness of right knee, not elsewhere classified (11/09/23) Other abnormalities of gait and mobility (11/09/23) Aftercare following joint replacement surgery (11/09/23) Presence of right artificial knee joint (11/09/23) Physical Therapy Treatment Note PT-OP-A Visit Information Start: 10/17/23 17:48 Freq: Status: Active Protocol: Document 11/09/23 14:34 SP (Rec: 11/09/23 16:16 SP [id number]) Out-Patient Physical Therapy Visit Information Visit Information Visit Type Treatment Note Visit Start Time 14:34 Visit Stop Time 15:24 Visit Number 7 Number of NEUROUROLOGIST Visits 2 Evaluation Information Evaluation Date 10/17/23 PT-OP-B Current Condition Start: 10/17/23 17:48 Freq: Status: Active Protocol: Document 10/17/23 13:45 DCW (Rec: 10/17/23 17:55 DCW [id number]) Current Condition History of Current Condition Onset Date 10/10/23 Current Complaints Right knee pain and stiffness s/p R TKA History of Current Condition Pt is a 58 year old female presenting one week s/p right TKA. Pt notes biggest current limiting factor is pain. Feels post-op swelling and tightness is greatly restricting her mobility. Has been consistent so far with post-op HEP, including ankle pumps, heel slides, SAQ, LAQ, and knee flexion/extension stretches. Pt using FWW for gait, heavily using UEs for stability. Has been wearing compression stockings and icing regularly. Treatment Goals Patient/Caregiver Goals Long-term goal is to return to competitive roller skating PT-OP-C Subjective Start: 10/17/23 17:48 Freq: Status: Active Protocol: Document 11/09/23 14:34 SP (Rec: 11/09/23 16:16 SP [id number]) OP-PT Subjective Patient Comments Patient Comments Pt reports r knee still really tight, doing as best can gain ROM. PT-OP-E Functional Tests Start: 10/17/23 17:48 Freq: Status: Active Protocol: Document 10/17/23 13:45 DCW (Rec: 10/18/23 09:33 DCW [id number]) Functional Tests 2 Minute Walk Test Distance 140' Device Used FWW Comments 1.17 ft/sec PT-OP-G Mobility & Gait Start: 10/17/23 17:48 Freq: Status: Active Protocol: Document 10/17/23 13:45 DCW (Rec: 10/18/23 09:33 DCW [id number]) OP Gait Assessment Comments Gait Comments Ambulates with no right knee flexion, moderate right antalgia. Pt uses a step- through gait pattern and heavily relies on her UEs for support. Stair Climbing Evaluation Evaluation Level of Assist On Stairs Contact Guard Assistance Devices Stair Climbing Assistive Devices Left Railing,Right Railing Technique/Endurance Stair Climbing Direction Ascend and Descend Stair Climbing Technique Step to Step Number of Steps Climbed 4 PT-OP-K Range of Motion Start: 10/17/23 17:48 Freq: Status: Active Protocol: Document 10/17/23 13:45 DCW (Rec: 10/17/23 17:55 DCW [id number]) Knee Goniometric Range of Motion Knee Right Knee ROM WFL No Patient Position Supine Flexion Active (degrees) 57 Flexion Passive (degrees) 65 Extension Active (degrees) 11 Extension Passive (degrees) 10 Knee ROM Limitations Knee ROM Limitations Soft Tissue Tightness,Muscle Weakness,Muscle Tone,Pain, Swelling PT-OP-M Strength Start: 10/17/23 17:48 Freq: Status: Active Protocol: Document 10/17/23 13:45 DCW (Rec: 10/18/23 09:33 DCW [id number]) Knee Strength Knee Manual Muscle Testing Right Flexion (S2) 2- Poor- Extension (L3) 2+ Poor+ PT-OP-Q Treatments Start: 10/17/23 17:48 Freq: Status: Active Protocol: Document 11/09/23 14:34 SP (Rec: 11/09/23 16:16 SP [id number]) Therapeutic Exercises Supine Exercises knee hang Supine Exercise Name lower leg hang off edge table during manual Side right Comments good feedback tolerance, improved flexion post manual heel slides Supine Exercise Name 1. AAROM ft table 71* 2. AAROM over tball up to 73* Side right Resistance AROM-AAROM Equipment Used over tball Reps/Minutes much time spent Comments supported DF, Prone Exercises AAROM flexion, extension Prone Exercise Name R knee: AAROM flexion, AAROM supported ant) quad fac ext ( inhibition of HS) Side right Equipment Used R distal thigh over rolled towel Comments reports less pain in knee with active suported ext, low pain flexion Sitting Exercises Flexion Sitting Exercise Name Knee flex stretch: [place] PROM foot on 55cm tball (plinth) Side right Resistance A>AAROM Equipment Used 55cm tball Reps/Minutes x10 ea Comments reports less pain than hooklying, good self R hip on table Standing Exercises mini squat Standing Exercise Name trialed Resistance AROM- arms front/FWW if needed Reps/Minutes 2x5 reps Comments cued hip hinge, able get lower - reduction R knee stiffness calf raises Standing Exercise Name FWW support- inPT trialed Reps/Minutes x10 stepping Standing Exercise Name lateral Side bilateral Resistance AROM Reps/Minutes 20 ft x 2 laps Comments cued increase B knee march motion laterally Flexion Standing Exercise Name knee flexion AAROM/stretch- HEP reviewed Side right Equipment Used rail support, 2nd step Reps/Minutes x10 Comments 78* (end tx) Gait Training Gait Activity no AD Description gait phases in mirror Distance/Duration 30 ft x3 laps, 20 ft x3 laps each front mirror fwd/lateral Treatment Focus increase DESTINY, normalize gait phases on R LE. Comments cued increase hip and knee flexion, DF during advancement then knee extension into heel strike- improves mechanics of R LE advancement. stair mgt Description step to patterning Device Used L HR ascending/R descending Distance/Duration 4 x4 sets Treatment Focus R hip and knee flexion, DF asc , R knee ext heel strike desc Comments Ed increase R knee/hip/ankle ROM during trail LE asc, lead descending for functional mobility opportunity support normalizing carryover gait. FWW Description to/from waiting room Device Used FWW Level of Assistance I Treatment Focus increase R knee flexion, DF, normalizing gait Comments cued increase hip and knee flexion, DF during advancement then knee extension into heel strike Manual Therapy Treatment Soft Tissue Mobilization R hip Body Location PROM hip IR/ ER Mobilization Type Sustained Pressure,Other Intensity/Depth Moderate Comments PROM R leg tolerated knee flexion- sustained pressure piriformis and glut med distal att.- Good feedback less tension, more relaxed motion. R leg Body Location quad, HS, calf Mobilization Type Myofascial Release,Rolling, Other Intensity/Depth Moderate Body Position Supine, hooklying, prone Comments long axis, lower leg off end table, knee in flexion foot on table- ed use rolling pin self home gentle pressure tolerance. scar mobility Body Location R knee Body Position Supine Comments support medial & lateral of scar- sup/inf/Med/Lateral Joint Mobilizations R ankle Joint talocrual into DF, calcaneal med/lat, distal tibfib Direction AP Grade II Body Position Hooklying Comments R knee flexion /c PROM DF Patellar Joint R Patella Direction Inferior<->Superior Grade III Body Position Hooklying Comments R knee straight Right knee Joint R tibofemoral, prox fib Direction A<->P Grade III Body Position Hooklying Comments into various flexion ranges tolerant PT-OP-R Modalities Start: 10/28/23 10:30 Freq: Status: Active Protocol: Document 11/04/23 10:00 NBM (Rec: 11/04/23 13:00 NBM [id number]) Hot Pack/Cold Pack Treatment Cold Pack Location R knee Patient Position Hooklying Patient Tolerance Good PT-OP-T Assessment and Plan Start: 10/17/23 17:48 Freq: Status: Active Protocol: Document 11/09/23 14:34 SP (Rec: 11/09/23 16:16 SP [id number]) Physical Therapy Assessment Goals Three Impairment Pt completes two minute walk test ambulating 140' Detention Goal (LTG) Pt to tolerate a full 6MWT without an assistive device, ambulating >1000' in order to demonstrate return to prior gait function LTG Duration 01/15/24 Two Impairment Right knee AROM limited 11?-57 ? Detention Goal (LTG) Pt to improve active knee ROM to 0?-120? in order to return to prior levels of function and allow pt to return to hobby of competitive roller skating LTG Duration 01/15/24 One Impairment Pt does not have an appropriate home exercise program Short Term Goal (STG) Pt to be independent and compliant with an appropriate HEP STG Duration 11/17/23 Assessment Summary Assessment Tx focused on reduction tightness in R quad, R HS with including inhibition of HS, R piriformis and glut med, improved post manual and stepping motion and mini squats near chair. Ed for self scar mobility application during manual. Pt gained AAROM R knee 78deg end tx use step. 73* hooklying. Good feedback lateral, fwd stepping with cues for excentuate R hip and knee flexion and DF gait phases and mini squat to move R knee more and noted reduction in compensations walk in mirror unsupported. Physical Therapy Plan Frequency and Duration Frequency of Treatment 2x/Week Plan of Care Start Date 10/17/23 Plan of Care End Date 01/15/24 Therapeutic Interventions Therapeutic Interventions Balance Training,Gait Training ,Home Exercise Program,Joint Mobilizations,Manual Therapy, Neuromuscular Re-education, Patient/Caregiver Education, Self-Care/Home Management,Soft Tissue Mobilization,Taping, Therapeutic Activities, Therapeutic Exercises Modalities Cold Pack/Ice Massage,Electric Stimulation,Hot Packs, Ultrasound Next Visit Focus/Plan Next Note Type Treatment Note Next Visit Plan Continue: mini squat, gait phase stepping unsupported. HEP review. POC:Knee ROM/strengthening, gait training
--- NOTE | 2023-11-11 14:42 | PT.OTN ---
Current Diagnoses Pain in right knee (11/11/23) Stiffness of right knee, not elsewhere classified (11/11/23) Other abnormalities of gait and mobility (11/11/23) Aftercare following joint replacement surgery (11/11/23) Presence of right artificial knee joint (11/11/23) Physical Therapy Treatment Note PT-OP-A Visit Information Start: 10/17/23 17:48 Freq: Status: Active Protocol: Document 11/11/23 13:50 SP (Rec: 11/11/23 14:36 SP [id number]) Out-Patient Physical Therapy Visit Information Visit Information Visit Type Treatment Note Visit Start Time 13:50 Visit Stop Time 14:42 Visit Number 8 Number of OPERATIONS REPRESENTATIVE Visits 3 Evaluation Information Evaluation Date 10/17/23 PT-OP-B Current Condition Start: 10/17/23 17:48 Freq: Status: Active Protocol: Document 10/17/23 13:45 DCW (Rec: 10/17/23 17:55 DCW [id number]) Current Condition History of Current Condition Onset Date 10/10/23 Current Complaints Right knee pain and stiffness s/p R TKA History of Current Condition Pt is a 58 year old female presenting one week s/p right TKA. Pt notes biggest current limiting factor is pain. Feels post-op swelling and tightness is greatly restricting her mobility. Has been consistent so far with post-op HEP, including ankle pumps, heel slides, SAQ, LAQ, and knee flexion/extension stretches. Pt using FWW for gait, heavily using UEs for stability. Has been wearing compression stockings and icing regularly. Treatment Goals Patient/Caregiver Goals Long-term goal is to return to competitive roller skating PT-OP-C Subjective Start: 10/17/23 17:48 Freq: Status: Active Protocol: Document 11/11/23 13:50 SP (Rec: 11/11/23 14:36 SP [id number]) OP-PT Subjective Patient Comments Patient Comments Pt report sees Ortho 11/24. PT-OP-E Functional Tests Start: 10/17/23 17:48 Freq: Status: Active Protocol: Document 10/17/23 13:45 DCW (Rec: 10/18/23 09:33 DCW [id number]) Functional Tests 2 Minute Walk Test Distance 140' Device Used FWW Comments 1.17 ft/sec PT-OP-G Mobility & Gait Start: 10/17/23 17:48 Freq: Status: Active Protocol: Document 10/17/23 13:45 DCW (Rec: 10/18/23 09:33 DCW [id number]) OP Gait Assessment Comments Gait Comments Ambulates with no right knee flexion, moderate right antalgia. Pt uses a step- through gait pattern and heavily relies on her UEs for support. Stair Climbing Evaluation Evaluation Level of Assist On Stairs Contact Guard Assistance Devices Stair Climbing Assistive Devices Left Railing,Right Railing Technique/Endurance Stair Climbing Direction Ascend and Descend Stair Climbing Technique Step to Step Number of Steps Climbed 4 PT-OP-K Range of Motion Start: 10/17/23 17:48 Freq: Status: Active Protocol: Document 10/17/23 13:45 DCW (Rec: 10/17/23 17:55 DCW [id number]) Knee Goniometric Range of Motion Knee Right Knee ROM WFL No Patient Position Supine Flexion Active (degrees) 57 Flexion Passive (degrees) 65 Extension Active (degrees) 11 Extension Passive (degrees) 10 Knee ROM Limitations Knee ROM Limitations Soft Tissue Tightness,Muscle Weakness,Muscle Tone,Pain, Swelling PT-OP-M Strength Start: 10/17/23 17:48 Freq: Status: Active Protocol: Document 10/17/23 13:45 DCW (Rec: 10/18/23 09:33 DCW [id number]) Knee Strength Knee Manual Muscle Testing Right Flexion (S2) 2- Poor- Extension (L3) 2+ Poor+ PT-OP-Q Treatments Start: 10/17/23 17:48 Freq: Status: Active Protocol: Document 11/11/23 13:50 SP (Rec: 11/11/23 14:36 SP [id number]) Cardio Equipment Recumbent Elliptical ([employer]) Duration (Minutes) 6 Resistance 2 Seat Position 6>4 Other BUEs/ BLEs Gym Equipment Shuttle Recovery unilateral squat Resistance 25# tea Reps/Time 5 x2 Bilateral Squats Details R knee 83deg Resistance 50# (2 teal) Shuttle Recovery Platform Stable Reps/Time 2x8 reps Therapeutic Exercises Supine Exercises QS Supine Exercise Name R ankle elevated on tball between AAROM flexion, on table Side right Resistance over 55cm tball Equipment Used Strap on foot for self stability ft on tball Reps/Minutes 10 SH x5 reps -with less inhibit of HS/calf with cues for slow ROM Comments feels fine, improved femoral post glide on tibia post manual knee hang Supine Exercise Name lower leg hang off edge shuttle recovery Side right Comments good feedback tolerance, improved flexion heel slides Supine Exercise Name 1. AAROM ft table 78* 2. AAROM over tball up to 86* Side right Resistance AROM-AAROM Equipment Used over 55cm tball, strap Comments self supported DF Prone Exercises prone hang Prone Exercise Name R 4 deg ext Side bilateral Equipment Used towel rolls under distal quad comfort EOtable Reps/Minutes 30 sec Comments good feedback AAROM flexion, extension Prone Exercise Name R knee: AAROM flexion, AAROM supported ant) quad fac ext ( inhibition of HS) Side right Equipment Used R distal thigh over rolled towel Comments reports less pain in knee with active suported ext, low pain flexion Manual Therapy Treatment Soft Tissue Mobilization R hip Body Location PROM hip IR/ ER Mobilization Type Sustained Pressure,Other Intensity/Depth Moderate Body Position Prone Comments PROM R leg tolerated knee flexion- sustained pressure piriformis and glut med distal att.- Good feedback less tension, more relaxed motion. R leg Body Location quad, HS, calf Mobilization Type Myofascial Release,Rolling, Other Intensity/Depth Moderate Body Position Supine, hooklying, prone Comments long axis supported by OPERATIONS REPRESENTATIVE, lower leg off edge shuttle recovery Joint Mobilizations Patellar Joint R Patella Direction Inferior<->Superior Grade III Body Position Hooklying Comments R knee straight Right knee Joint 1.R tibofemoral 2.femoral on tibia long axis Direction A<->P Grade III Body Position Hooklying Comments 1. various flexion ranges tolerant contract quad, AAROM relax into flexion 2. lower leg supported by therapist, AP pnfree improved TKE QS PT-OP-R Modalities Start: 10/28/23 10:30 Freq: Status: Active Protocol: Document 11/11/23 13:50 SP (Rec: 11/11/23 14:36 SP [id number]) Hot Pack/Cold Pack Treatment Cold Pack Location R knee Patient Position Hooklying Patient Tolerance Good PT-OP-T Assessment and Plan Start: 10/17/23 17:48 Freq: Status: Active Protocol: Document 11/11/23 13:50 SP (Rec: 11/11/23 14:36 SP [id number]) Physical Therapy Assessment Goals Three Impairment Pt completes two minute walk test ambulating 140' Nursing Tech Goal (LTG) Pt to tolerate a full 6MWT without an assistive device, ambulating >1000' in order to demonstrate return to prior gait function LTG Duration 01/15/24 Two Impairment Right knee AROM limited 11?-57 ? Nursing Tech Goal (LTG) Pt to improve active knee ROM to 0?-120? 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 LTG Duration 01/15/24 progressing 11/11/23 One Impairment Pt does not have an appropriate home exercise program Short Term Goal (STG) Pt to be independent and compliant with an appropriate HEP 11/08-07/24: added mini squat, lateral stepping, heel toe gait. Heel slides use of strap foot on tball if beneficial and less pain. STG Duration 11/17/23 progressin11/11/23 Assessment Summary Assessment Pt making slow gains in ROM 4- 86deg R knee with manual support. Trialed use of biodex and shuttle recovery today for more active AAROM. Found contract relax technique provided increase ROM with support inhib HS recruitment into ext and better femoral posterior glide. Pt pretty sore end tx but please with ROM getting, welcoming to CP modality end tx. Ed hip & knee flexion ROM leaving for decreased stiffness. Physical Therapy Plan Frequency and Duration Frequency of Treatment 2x/Week Plan of Care Start Date 10/17/23 Plan of Care End Date 01/15/24 Therapeutic Interventions Therapeutic Interventions Balance Training,Gait Training ,Home Exercise Program,Joint Mobilizations,Manual Therapy, Neuromuscular Re-education, Patient/Caregiver Education, Self-Care/Home Management,Soft Tissue Mobilization,Taping, Therapeutic Activities, Therapeutic Exercises Modalities Cold Pack/Ice Massage,Electric Stimulation,Hot Packs, Ultrasound Next Visit Focus/Plan Next Note Type Treatment Note Next Visit Plan Continue: mini squat, gait phase stepping unsupported. HEP review. POC:Knee ROM/strengthening, gait training
--- NOTE | 2023-11-14 12:00 | PT.OTN ---
Current Diagnoses Pain in right knee (11/14/23) Stiffness of right knee, not elsewhere classified (11/14/23) Other abnormalities of gait and mobility (11/14/23) Aftercare following joint replacement surgery (11/14/23) Presence of right artificial knee joint (11/14/23) Physical Therapy Treatment Note PT-OP-A Visit Information Start: 10/17/23 17:48 Freq: Status: Active Protocol: Document 11/14/23 11:15 DCW (Rec: 11/14/23 12:00 DCW [id number]) Out-Patient Physical Therapy Visit Information Visit Information Visit Type Treatment Note Visit Start Time 11:15 Visit Stop Time 12:00 Visit Number 9 Number of LOOM REPAIRER Visits 0 Evaluation Information Evaluation Date 10/17/23 PT-OP-B Current Condition Start: 10/17/23 17:48 Freq: Status: Active Protocol: Document 10/17/23 13:45 DCW (Rec: 10/17/23 17:55 DCW [id number]) Current Condition History of Current Condition Onset Date 10/10/23 Current Complaints Right knee pain and stiffness s/p R TKA History of Current Condition Pt is a 58 year old female presenting one week s/p right TKA. Pt notes biggest current limiting factor is pain. Feels post-op swelling and tightness is greatly restricting her mobility. Has been consistent so far with post-op HEP, including ankle pumps, heel slides, SAQ, LAQ, and knee flexion/extension stretches. Pt using FWW for gait, heavily using UEs for stability. Has been wearing compression stockings and icing regularly. Treatment Goals Patient/Caregiver Goals Long-term goal is to return to competitive roller skating PT-OP-C Subjective Start: 10/17/23 17:48 Freq: Status: Active Protocol: Document 11/14/23 11:15 DCW (Rec: 11/14/23 12:00 DCW [id number]) OP-PT Subjective Patient Comments Patient Comments I've progressed myself to a SPC PT-OP-E Functional Tests Start: 10/17/23 17:48 Freq: Status: Active Protocol: Document 10/17/23 13:45 DCW (Rec: 10/18/23 09:33 DCW [id number]) Functional Tests 2 Minute Walk Test Distance 140' Device Used FWW Comments 1.17 ft/sec PT-OP-G Mobility & Gait Start: 10/17/23 17:48 Freq: Status: Active Protocol: Document 10/17/23 13:45 DCW (Rec: 10/18/23 09:33 DCW [id number]) OP Gait Assessment Comments Gait Comments Ambulates with no right knee flexion, moderate right antalgia. Pt uses a step- through gait pattern and heavily relies on her UEs for support. Stair Climbing Evaluation Evaluation Level of Assist On Stairs Contact Guard Assistance Devices Stair Climbing Assistive Devices Left Railing,Right Railing Technique/Endurance Stair Climbing Direction Ascend and Descend Stair Climbing Technique Step to Step Number of Steps Climbed 4 PT-OP-K Range of Motion Start: 10/17/23 17:48 Freq: Status: Active Protocol: Document 10/17/23 13:45 DCW (Rec: 10/17/23 17:55 DCW [id number]) Knee Goniometric Range of Motion Knee Right Knee ROM WFL No Patient Position Supine Flexion Active (degrees) 57 Flexion Passive (degrees) 65 Extension Active (degrees) 11 Extension Passive (degrees) 10 Knee ROM Limitations Knee ROM Limitations Soft Tissue Tightness,Muscle Weakness,Muscle Tone,Pain, Swelling PT-OP-M Strength Start: 10/17/23 17:48 Freq: Status: Active Protocol: Document 10/17/23 13:45 DCW (Rec: 10/18/23 09:33 DCW [id number]) Knee Strength Knee Manual Muscle Testing Right Flexion (S2) 2- Poor- Extension (L3) 2+ Poor+ PT-OP-Q Treatments Start: 10/17/23 17:48 Freq: Status: Active Protocol: Document 11/14/23 11:15 DCW (Rec: 11/14/23 12:00 DCW [id number]) Cardio Equipment Recumbent Bicycle Duration (Minutes) 6 Seat Position 6 Other Partial Rotations, cued for breathwork Gym Equipment Shuttle Recovery Bilateral Squats Details R knee 82? Resistance 50# (2 navy) Shuttle Recovery Platform Stable Reps/Time 2x8 reps Therapeutic Exercises Supine Exercises Wall slides Supine Exercise Name Wall slides into flexion stretch Side right Resistance 5# ankle weight Equipment Used slider sheet Comments ROM 84? flexion Gait Training Gait Activity no AD Description gait phases in mirror Distance/Duration 15' x10 laps Treatment Focus increase DESTINY, normalize gait phases on R LE. Comments Increased knee flexion, eliminate hip hiking/ circumduction gait Manual Therapy Treatment Soft Tissue Mobilization R leg Body Location quad, HS, calf Mobilization Type Myofascial Release,Rolling, Other Intensity/Depth Moderate Body Position Supine, hooklying, prone Comments long axis supported by LOOM REPAIRER, lower leg off edge shuttle recovery scar mobility Body Location R knee Body Position Supine Comments support medial & lateral of scar- sup/inf/Med/Lateral Joint Mobilizations Patellar Joint R Patella Direction Inferior<->Superior Grade III Body Position Hooklying Comments R knee straight Right knee Joint R tibofemoral, prox fib Direction A<->P Grade III Body Position Hooklying Comments into various flexion ranges tolerant PT-OP-R Modalities Start: 10/28/23 10:30 Freq: Status: Active Protocol: Document 11/14/23 11:15 DCW (Rec: 11/14/23 12:00 DCW [id number]) Hot Pack/Cold Pack Treatment Cold Pack Location R knee Patient Position Hooklying Patient Tolerance Good PT-OP-T Assessment and Plan Start: 10/17/23 17:48 Freq: Status: Active Protocol: Document 11/14/23 11:15 DCW (Rec: 11/14/23 12:00 DCW [id number]) Physical Therapy Assessment Impairments Impairments Activity Tolerance,Functional Activities,Functional Mobility ,Gait,Integument,Pain,ROM,Soft Tissue Mobility,Strength, Transfers Goals Three Impairment Pt completes two minute walk test ambulating 140' Mcc Goal (LTG) Pt to tolerate a full 6MWT without an assistive device, ambulating >1000' in order to demonstrate return to prior gait function LTG Duration 01/15/24 Two Impairment Right knee AROM limited 11?-57 ? Claim Rep Goal (LTG) Pt to improve active knee ROM to 0?-120? 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 LTG Duration 01/15/24 progressing 11/11/23 One Impairment Pt does not have an appropriate home exercise program Short Term Goal (STG) Pt to be independent and compliant with an appropriate HEP 11/08-07/24: added mini squat, lateral stepping, heel toe gait. Heel slides use of strap foot on tball if beneficial and less pain. STG Duration 11/17/23 progressin11/11/23 Assessment Summary Assessment Continues to struggle greatly with flexion. Is demonstrating improved gait both with SPC and without an assistive device, better knee flexion and decreased hip compensation during swing phase. Continue to work most on increasing knee flexion. Physical Therapy Plan Frequency and Duration Frequency of Treatment 2x/Week Plan of Care Start Date 10/17/23 Plan of Care End Date 01/15/24 Therapeutic Interventions Therapeutic Interventions Balance Training,Gait Training ,Home Exercise Program,Joint Mobilizations,Manual Therapy, Neuromuscular Re-education, Patient/Caregiver Education, Self-Care/Home Management,Soft Tissue Mobilization,Taping, Therapeutic Activities, Therapeutic Exercises Modalities Cold Pack/Ice Massage,Electric Stimulation,Hot Packs, Ultrasound Next Visit Focus/Plan Next Note Type Treatment Note Next Visit Plan Continue: mini squat, gait phase stepping unsupported. HEP review. POC:Knee ROM/strengthening, gait training
--- NOTE | 2023-11-16 11:24 | PT.OTN ---
Current Diagnoses Pain in right knee (11/16/23) Stiffness of right knee, not elsewhere classified (11/16/23) Other abnormalities of gait and mobility (11/16/23) Aftercare following joint replacement surgery (11/16/23) Presence of right artificial knee joint (11/16/23) Physical Therapy Treatment Note PT-OP-A Visit Information Start: 10/17/23 17:48 Freq: Status: Active Protocol: Document 11/16/23 10:34 SP (Rec: 11/16/23 11:35 SP [id number]) Out-Patient Physical Therapy Visit Information Visit Information Visit Type Treatment Note Visit Note 6 initial visits approved completed 11/10 visit 2nd set approved Visit Start Time 10:34 Visit Stop Time 11:24 Visit Number 10 Number of DAIRY QUALITY ASSURANCE OFFICER Visits 1 Evaluation Information Evaluation Date 10/17/23 PT-OP-B Current Condition Start: 10/17/23 17:48 Freq: Status: Active Protocol: Document 10/17/23 13:45 DCW (Rec: 10/17/23 17:55 DCW [id number]) Current Condition History of Current Condition Onset Date 10/10/23 Current Complaints Right knee pain and stiffness s/p R TKA History of Current Condition Pt is a 58 year old female presenting one week s/p right TKA. Pt notes biggest current limiting factor is pain. Feels post-op swelling and tightness is greatly restricting her mobility. Has been consistent so far with post-op HEP, including ankle pumps, heel slides, SAQ, LAQ, and knee flexion/extension stretches. Pt using FWW for gait, heavily using UEs for stability. Has been wearing compression stockings and icing regularly. Treatment Goals Patient/Caregiver Goals Long-term goal is to return to competitive roller skating PT-OP-C Subjective Start: 10/17/23 17:48 Freq: Status: Active Protocol: Document 11/16/23 10:34 SP (Rec: 11/16/23 11:35 SP [id number]) OP-PT Subjective Patient Comments Patient Comments Pt arrives use of hurry cane. PT-OP-E Functional Tests Start: 10/17/23 17:48 Freq: Status: Active Protocol: Document 10/17/23 13:45 DCW (Rec: 10/18/23 09:33 DCW [id number]) Functional Tests 2 Minute Walk Test Distance 140' Device Used FWW Comments 1.17 ft/sec PT-OP-G Mobility & Gait Start: 10/17/23 17:48 Freq: Status: Active Protocol: Document 10/17/23 13:45 DCW (Rec: 10/18/23 09:33 DCW [id number]) OP Gait Assessment Comments Gait Comments Ambulates with no right knee flexion, moderate right antalgia. Pt uses a step- through gait pattern and heavily relies on her UEs for support. Stair Climbing Evaluation Evaluation Level of Assist On Stairs Contact Guard Assistance Devices Stair Climbing Assistive Devices Left Railing,Right Railing Technique/Endurance Stair Climbing Direction Ascend and Descend Stair Climbing Technique Step to Step Number of Steps Climbed 4 PT-OP-K Range of Motion Start: 10/17/23 17:48 Freq: Status: Active Protocol: Document 11/16/23 10:34 SP (Rec: 11/16/23 11:35 SP [id number]) Knee Goniometric Range of Motion Knee Right Knee ROM WFL No Patient Position Supine Flexion Active (degrees) 81 Flexion Passive (degrees) 90 Extension Active (degrees) 1 Comments R knee ROM (11/16/23 since eval ): AROM flexion gain 23 deg to 81 PROM flexion gain 25 deg to 90 Extension gain 10 deg: hang 1 deg, AROM 0deg PT-OP-M Strength Start: 10/17/23 17:48 Freq: Status: Active Protocol: Document 10/17/23 13:45 DCW (Rec: 10/18/23 09:33 DCW [id number]) Knee Strength Knee Manual Muscle Testing Right Flexion (S2) 2- Poor- Extension (L3) 2+ Poor+ PT-OP-Q Treatments Start: 10/17/23 17:48 Freq: Status: Active Protocol: Document 11/16/23 10:34 SP (Rec: 11/16/23 11:35 SP [id number]) Cardio Equipment Recumbent Bicycle Duration (Minutes) 6 Seat Position 6 82-85deg L knee Other Partial Rotations, cued for breathwork Gym Equipment Shuttle Recovery Bilateral Squats Details R knee 82>87? Resistance 50# (2 [employer]) Shuttle Recovery Platform Stable Reps/Time 2x8 reps, manual between sets Therapeutic Exercises Supine Exercises QS Side right Comments multiple reps during breaks bike, shuttle, wallslide Wall slides Supine Exercise Name Wall slides into flexion stretch Side right Resistance AAROM strap Comments ROM 88? flexion Standing Exercises mini squat Standing Exercise Name trialed Resistance Hurry cane in LUE Equipment Used back on wall Reps/Minutes 2x5 reps Comments cued hip hinge, able get lower - reduction R knee stiffness Gait Training Gait Activity no AD Description gait phases in mirror Device Used 0 Distance/Duration 15' x8 laps Treatment Focus increase DESTINY, normalize gait phases on R LE. Comments Increased knee and hip flexion and PF toe off gait phases, eliminate hip hiking gait Manual Therapy Treatment Soft Tissue Mobilization R leg Body Location quad, HS, calf Mobilization Type Myofascial Release,Rolling, Other Intensity/Depth Moderate Body Position seated bike Joint Mobilizations Right knee Joint R tibofemoral, prox fib Direction A<->P Grade III Body Position sit& hookl Comments into various flexion ranges tolerant PT-OP-R Modalities Start: 10/28/23 10:30 Freq: Status: Active Protocol: Document 11/16/23 10:34 SP (Rec: 11/16/23 11:35 SP [id number]) Hot Pack/Cold Pack Treatment Cold Pack Location R knee Patient Position Hooklying Patient Tolerance Good PT-OP-T Assessment and Plan Start: 10/17/23 17:48 Freq: Status: Active Protocol: Document 11/16/23 10:34 SP (Rec: 11/16/23 11:35 SP [id number]) Physical Therapy Assessment Goals Three Impairment Pt completes two minute walk test ambulating 140' Care Home Goal (LTG) Pt to tolerate a full 6MWT without an assistive device, ambulating >1000' in order to demonstrate return to prior gait function LTG Duration 01/15/24 Two Impairment Right knee AROM limited 11?-57 ? Care Home Goal (LTG) Pt to improve active knee ROM to 0?-120? 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 11/16/23: 0-88 deg AAROM flexion post manual and ther ex LTG Duration 01/15/24 progressing 11/16/23 One Impairment Pt does not have an appropriate home exercise program Short Term Goal (STG) Pt to be independent and compliant with an appropriate HEP 11/08-07/24: added mini squat, lateral stepping, heel toe gait. Heel slides use of strap foot on tball if beneficial and less pain. STG Duration 11/17/23 progressin11/11/23 Progress Towards Goals Progress Towards Goals Progressing Toward Goals Progress Comments R knee ROM (11/16/23 since eval ): AROM flexion gain 23 deg to 81 PROM flexion gain 25 deg to 90 Extension gain 10 deg: hang 1 deg, AROM 0deg Assessment Summary Assessment Pt still challenge with flexion but able to get to 90 deg with assist. Time spent front mirror with cues for improved R toe off and hip & knee flexion with cuing to progress normalizing gait phases, better flexion demonstrated. Physical Therapy Plan Frequency and Duration Frequency of Treatment 2x/Week Plan of Care Start Date 10/17/23 Plan of Care End Date 01/15/24 Therapeutic Interventions Therapeutic Interventions Balance Training,Gait Training ,Home Exercise Program,Joint Mobilizations,Manual Therapy, Neuromuscular Re-education, Patient/Caregiver Education, Self-Care/Home Management,Soft Tissue Mobilization,Taping, Therapeutic Activities, Therapeutic Exercises Modalities Cold Pack/Ice Massage,Electric Stimulation,Hot Packs, Ultrasound Next Visit Focus/Plan Next Note Type Treatment Note Next Visit Plan Continue: progress R knee ROM and gait phase stepping unsupported. HEP review. Next initiate hurdles and sit/ stands. POC:Knee ROM/strengthening, gait training
--- NOTE | 2023-11-21 09:53 | PT.OTN ---
Current Diagnoses Pain in right knee (11/21/23) Stiffness of right knee, not elsewhere classified (11/21/23) Other abnormalities of gait and mobility (11/21/23) Aftercare following joint replacement surgery (11/21/23) Presence of right artificial knee joint (11/21/23) Physical Therapy Treatment Note PT-OP-A Visit Information Start: 10/17/23 17:48 Freq: Status: Active Protocol: Document 11/21/23 09:02 SP (Rec: 11/21/23 09:49 SP [id number]) Out-Patient Physical Therapy Visit Information Visit Information Visit Type Treatment Note Visit Note 6 initial visits approved completed 12/10 visit 2nd set approved 11 visit post eval Visit Start Time 09:02 Visit Stop Time 09:53 Visit Number 11 Number of INFANT ROOM TEACHER Visits 2 Evaluation Information Evaluation Date 10/17/23 PT-OP-B Current Condition Start: 10/17/23 17:48 Freq: Status: Active Protocol: Document 10/17/23 13:45 DCW (Rec: 10/17/23 17:55 DCW [id number]) Current Condition History of Current Condition Onset Date 10/10/23 Current Complaints Right knee pain and stiffness s/p R TKA History of Current Condition Pt is a 58 year old female presenting one week s/p right TKA. Pt notes biggest current limiting factor is pain. Feels post-op swelling and tightness is greatly restricting her mobility. Has been consistent so far with post-op HEP, including ankle pumps, heel slides, SAQ, LAQ, and knee flexion/extension stretches. Pt using FWW for gait, heavily using UEs for stability. Has been wearing compression stockings and icing regularly. Treatment Goals Patient/Caregiver Goals Long-term goal is to return to competitive roller skating PT-OP-C Subjective Start: 10/17/23 17:48 Freq: Status: Active Protocol: Document 11/21/23 09:02 SP (Rec: 11/21/23 09:49 SP [id number]) OP-PT Subjective Patient Comments Patient Comments Pt reports will see ortho 11/24. She stated her R knee felt more loose getting around ROM fri-Sat, pretty stiff Sun . Is borrowing daughters recumbent bike today while rehabing help progress ROM at home. PT-OP-E Functional Tests Start: 10/17/23 17:48 Freq: Status: Active Protocol: Document 10/17/23 13:45 DCW (Rec: 10/18/23 09:33 DCW [id number]) Functional Tests 2 Minute Walk Test Distance 140' Device Used FWW Comments 1.17 ft/sec PT-OP-G Mobility & Gait Start: 10/17/23 17:48 Freq: Status: Active Protocol: Document 10/17/23 13:45 DCW (Rec: 10/18/23 09:33 DCW [id number]) OP Gait Assessment Comments Gait Comments Ambulates with no right knee flexion, moderate right antalgia. Pt uses a step- through gait pattern and heavily relies on her UEs for support. Stair Climbing Evaluation Evaluation Level of Assist On Stairs Contact Guard Assistance Devices Stair Climbing Assistive Devices Left Railing,Right Railing Technique/Endurance Stair Climbing Direction Ascend and Descend Stair Climbing Technique Step to Step Number of Steps Climbed 4 PT-OP-K Range of Motion Start: 10/17/23 17:48 Freq: Status: Active Protocol: Document 11/16/23 10:34 SP (Rec: 11/16/23 11:35 SP [id number]) Knee Goniometric Range of Motion Knee Right Knee ROM WFL No Patient Position Supine Flexion Active (degrees) 81 Flexion Passive (degrees) 90 Extension Active (degrees) 1 Comments R knee ROM (11/16/23 since eval ): AROM flexion gain 23 deg to 81 PROM flexion gain 25 deg to 90 Extension gain 10 deg: hang 1 deg, AROM 0deg PT-OP-M Strength Start: 10/17/23 17:48 Freq: Status: Active Protocol: Document 10/17/23 13:45 DCW (Rec: 10/18/23 09:33 DCW [id number]) Knee Strength Knee Manual Muscle Testing Right Flexion (S2) 2- Poor- Extension (L3) 2+ Poor+ PT-OP-Q Treatments Start: 10/17/23 17:48 Freq: Status: Active Protocol: Document 11/21/23 09:02 SP (Rec: 11/21/23 09:49 SP [id number]) Cardio Equipment Recumbent Bicycle Duration (Minutes) 10 Resistance 0 Seat Position 5 81 deg R knee Other Partial Rotations, cued for breathwork Gym Equipment Shuttle Recovery Bilateral Squats Details R knee 90? Resistance 50# (2 navy) Shuttle Recovery Platform Stable Reps/Time 2x10 reps, manual between sets Therapeutic Exercises Supine Exercises QS Side right Comments multiple reps during breaks bike, shuttle, wallslide knee hang Supine Exercise Name lower leg hang off edge table Side right Equipment Used on shuttle recovery, off table end tx post CP Comments good feedback tolerance Wall slides Supine Exercise Name Wall slides into flexion stretch Side right Resistance 5# leg wt, slider Reps/Minutes A- AAROM multple reps- 2 min worth Comments AAROM 94? flexion Sitting Exercises LAQ Sitting Exercise Name trialed in PT Side right Resistance AROM Equipment Used BIG chair Reps/Minutes 5 reps, then post CP for ROM Comments decrease lag with reps, not measured lacking ROM. Flexion Sitting Exercise Name Knee flex stretch Side right Resistance A>AAROM Equipment Used scooter, at home scoots fwd Reps/Minutes x10 ea ( Comments cued keep pelvis down on chair Gait Training Gait Activity stair mgt Description receiprocal patterning Device Used L HR ascending/R descending Distance/Duration 4 x2 B HR 15%, 6 step heavy BUE HR descend Treatment Focus R hip and knee flexion, DF asc , R knee ext heel strike desc Comments Ed increase R knee/hip/ankle ROM during trail LE asc, lead descending for functional mobility opportunity support normalizing carryover gait. Manual Therapy Treatment Soft Tissue Mobilization R leg Body Location quad, HS, calf Mobilization Type Myofascial Release,Rolling, Other Intensity/Depth Moderate Body Position shuttle rec Comments long axis supported by INFANT ROOM TEACHER, lower leg off edge shuttle recovery scar mobility Body Location R knee Body Position Supine Comments support medial & lateral of scar- sup/inf/Med/Lateral Joint Mobilizations R ankle Joint talocrual into DF, calcaneal med/lat, distal tibfib Direction AP Grade II Body Position Hooklying Comments R knee flexion /c PROM DF Patellar Joint R Patella Direction Inferior<->Superior Grade III Body Position Hooklying Comments R knee straight Right knee Joint R tibofemoral, prox fib Direction A<->P Grade III Body Position sit Comments into various flexion ranges tolerant Neuro Re-Education Treatment Balance Activities hurdles Details fwd, lateral Equipment 1 rail, 6 hurdles Reps/Duration 2 laps each Comments step 2 gait, more challenging RLE as trailing but minimal hip hike compensations PT-OP-R Modalities Start: 10/28/23 10:30 Freq: Status: Active Protocol: Document 11/21/23 09:02 SP (Rec: 11/21/23 09:49 SP [id number]) Hot Pack/Cold Pack Treatment Cold Pack Location R knee Patient Position Hooklying Patient Tolerance Good Comments Cued LAQ and wt shift, AROM leaving when done. PT-OP-T Assessment and Plan Start: 10/17/23 17:48 Freq: Status: Active Protocol: Document 11/21/23 09:02 SP (Rec: 11/21/23 09:49 SP [id number]) Physical Therapy Assessment Goals Three Impairment Pt completes two minute walk test ambulating 140' Nursing Home Goal (LTG) Pt to tolerate a full 6MWT without an assistive device, ambulating >1000' in order to demonstrate return to prior gait function LTG Duration 01/15/24 Two Impairment Right knee AROM limited 11?-57 ? Bakery Supervisor Goal (LTG) Pt to improve active knee ROM to 0?-120? 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 11/16/23: 0-88 deg AAROM flexion post manual and ther ex LTG Duration 01/15/24 progressing 11/16/23 One Impairment Pt does not have an appropriate home exercise program Short Term Goal (STG) Pt to be independent and compliant with an appropriate HEP 11/08-07/24: added mini squat, lateral stepping, heel toe gait. Heel slides use of strap foot on tball if beneficial and less pain. STG Duration 11/17/23 progressin11/11/23 Assessment Summary Assessment Pt worked hard to gain ROM. Getting recumbent bike for home today. Made gains with AAROM R knee today up to 81-94 deg. Pt improving in mechanics gait, cues from INFANT ROOM TEACHER and . Trialed stair mgt , Min UE support RLE WB asc Mod/MaxWB rail descending but able 4>6 step today. Discussed to try few during day at home, use UE for support!! Physical Therapy Plan Frequency and Duration Frequency of Treatment 2x/Week Plan of Care Start Date 10/17/23 Plan of Care End Date 01/15/24 Therapeutic Interventions Therapeutic Interventions Balance Training,Gait Training ,Home Exercise Program,Joint Mobilizations,Manual Therapy, Neuromuscular Re-education, Patient/Caregiver Education, Self-Care/Home Management,Soft Tissue Mobilization,Taping, Therapeutic Activities, Therapeutic Exercises Modalities Cold Pack/Ice Massage,Electric Stimulation,Hot Packs, Ultrasound Next Visit Focus/Plan Next Note Type Treatment Note Next Visit Plan Check response to hurdles, stair mgt last tx. Ortho appt Fri. Continue: progress R knee ROM and gait phase stepping unsupported. HEP review. Next initiate hurdles and sit/stands. POC:Knee ROM/strengthening, gait training
--- NOTE | 2023-11-30 11:16 | PT.OTRE ---
Current Diagnoses Pain in right knee (11/30/23) Stiffness of right knee, not elsewhere classified (11/30/23) Other abnormalities of gait and mobility (11/30/23) Aftercare following joint replacement surgery (11/30/23) Presence of right artificial knee joint (11/30/23) Visit Care Team Role Provider Type Ernesto Garland MD Attending Provider Non-Staff Referring Provider Specialty: Orthopedics Address: [address] [place] [address], [id number] Email: Physical Therapy Re-Evaluation PT-OP-A Visit Information Start: 10/17/23 17:48 Freq: Status: Active Protocol: Document 11/30/23 10:30 DCW (Rec: 11/30/23 11:16 DCW [id number]) Out-Patient Physical Therapy Visit Information Visit Information Visit Type Re-Evaluation Visit Note 6 initial visits approved completed 02/09 visit 2nd set approved 13 visit post eval Visit Start Time 10:30 Visit Stop Time 11:20 Visit Number 13 Number of AUTOMOTIVE SERVICE CASHIER Visits 0 Evaluation Information Evaluation Date 10/17/23 PT-OP-B Current Condition Start: 10/17/23 17:48 Freq: Status: Active Protocol: Document 11/30/23 10:30 DCW (Rec: 11/30/23 11:16 DCW [id number]) Current Condition History of Current Condition Onset Date 10/10/23 Current Complaints Right knee pain and stiffness s/p R TKA History of Current Condition Pt is a 58 year old female presenting one week s/p right TKA. Pt notes biggest current limiting factor is pain. Feels post-op swelling and tightness is greatly restricting her mobility. Has been consistent so far with post-op HEP, including ankle pumps, heel slides, SAQ, LAQ, and knee flexion/extension stretches. Pt using FWW for gait, heavily using UEs for stability. Has been wearing compression stockings and icing regularly. ADDENDUM 11/30/23: Pt underwent REBEL on 11/27, instructed to continue with PT, no change in frequency. PT-OP-C Subjective Start: 10/17/23 17:48 Freq: Status: Active Protocol: Document 11/30/23 10:30 DCW (Rec: 11/30/23 11:16 DCW [id number]) OP-PT Subjective Patient Comments Patient Comments I am feeling better about things. It still hurts, but it 's a better hurt. It's more like muscle pain, compared to the sharp joint pain I was having before. PT-OP-E Functional Tests Start: 10/17/23 17:48 Freq: Status: Active Protocol: Document 11/30/23 10:30 DCW (Rec: 11/30/23 10:48 DCW [id number]) Functional Tests 6 Minute Walk Test Distance 1054' Device Used SPC Comments 2.93 ft/sec PT-OP-G Mobility & Gait Start: 10/17/23 17:48 Freq: Status: Active Protocol: Document 10/17/23 13:45 DCW (Rec: 10/18/23 09:33 DCW [id number]) OP Gait Assessment Comments Gait Comments Ambulates with no right knee flexion, moderate right antalgia. Pt uses a step- through gait pattern and heavily relies on her UEs for support. Stair Climbing Evaluation Evaluation Level of Assist On Stairs Contact Guard Assistance Devices Stair Climbing Assistive Devices Left Railing,Right Railing Technique/Endurance Stair Climbing Direction Ascend and Descend Stair Climbing Technique Step to Step Number of Steps Climbed 4 PT-OP-K Range of Motion Start: 10/17/23 17:48 Freq: Status: Active Protocol: Document 11/30/23 10:30 DCW (Rec: 11/30/23 10:48 DCW [id number]) Knee Goniometric Range of Motion Knee Measured in Degrees Right Knee ROM WFL No Patient Position Supine Flexion Active (degrees) 90 Flexion Passive (degrees) 95 Extension Active (degrees) 5 Extension Passive (degrees) 5 Comments 13* extension lag Knee ROM Limitations Knee ROM Limitations Muscle Weakness,Muscle Tone, Pain,Swelling PT-OP-M Strength Start: 10/17/23 17:48 Freq: Status: Active Protocol: Document 11/30/23 10:30 DCW (Rec: 11/30/23 10:48 DCW [id number]) Knee Strength Knee Manual Muscle Testing Right Flexion (S2) 3- Fair- Extension (L3) 3- Fair- PT-OP-Q Treatments Start: 10/17/23 17:48 Freq: Status: Active Protocol: Document 11/30/23 10:30 DCW (Rec: 11/30/23 11:16 DCW [id number]) Cardio Equipment Recumbent Bicycle Duration (Minutes) 6 Resistance 0 Seat Position 5->6 Other Multiple full rotations, lateral body shift to get around. Gym Equipment Shuttle Recovery Bilateral Squats Details R knee 102? Resistance 62# (2 navy) Shuttle Recovery Platform Stable Manual Therapy Treatment Soft Tissue Mobilization scar mobility Body Location R knee Body Position Supine Comments support medial & lateral of scar- sup/inf/Med/Lateral Joint Mobilizations Patellar Joint R Patella Direction Inferior<->Superior Grade III Body Position Hooklying Comments R knee straight Right knee Joint R tibofemoral, prox fib Direction A<->P Grade III Body Position sit Comments into various flexion ranges tolerant PT-OP-R Modalities Start: 10/28/23 10:30 Freq: Status: Active Protocol: Document 11/30/23 10:30 DCW (Rec: 11/30/23 11:16 DCW [id number]) Hot Pack/Cold Pack Treatment Cold Pack Location R knee Patient Position Hooklying Patient Tolerance Good PT-OP-T Assessment and Plan Start: 10/17/23 17:48 Freq: Status: Active Protocol: Document 11/30/23 10:30 DCW (Rec: 11/30/23 11:16 DCW [id number]) Physical Therapy Assessment Goals Three Impairment Pt completes two minute walk test ambulating 140' Senior Living Goal (LTG) Pt to tolerate a full 6MWT without an assistive device, ambulating >1000' in order to demonstrate return to prior gait function LTG Duration 01/30/24 - Improving /c SPC Two Impairment Right knee AROM limited 11?-57 ? Senior Living Goal (LTG) Pt to improve active knee ROM to 0?-120? 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 11/16/23: 0-88 deg AAROM flexion post manual and ther ex LTG Duration 01/30/24 progressing One Impairment Pt does not have an appropriate home exercise program Short Term Goal (STG) Pt to be independent and compliant with an appropriate HEP 11/08-07/24: added mini squat, lateral stepping, heel toe gait. Heel slides use of strap foot on tball if beneficial and less pain. STG Duration 12/31/23 Assessment Summary Assessment Dramatic improvement overall two days s/p pt's REBEL. Able to get around on recumbent bike for the first time, flexion max measured at 102?. Pt should benefit from continued therapy to improve remaining ROM and strength deficits, gait difficulties, and pain control. Physical Therapy Plan Frequency and Duration Frequency of Treatment 2x/Week Plan of Care Start Date 11/30/23 Plan of Care End Date 01/30/24 Therapeutic Interventions Therapeutic Interventions Balance Training,Gait Training ,Home Exercise Program,Joint Mobilizations,Manual Therapy, Neuromuscular Re-education, Patient/Caregiver Education, Self-Care/Home Management,Soft Tissue Mobilization,Taping, Therapeutic Activities, Therapeutic Exercises Modalities Cold Pack/Ice Massage,Electric Stimulation,Hot Packs, Ultrasound Next Visit Focus/Plan Next Note Type Treatment Note Next Visit Plan Check response to hurdles, stair mgt last tx. Ortho appt Tue. Continue: progress R knee ROM and gait phase stepping unsupported. HEP review. Next initiate hurdles and sit/stands. POC:Knee ROM/strengthening, gait training
--- NOTE | 2023-11-30 11:16 | PT.OPPOC ---
Physical, Occupational & Speech Therapy At [facility] Current Diagnoses Pain in right knee (11/30/23) Stiffness of right knee, not elsewhere classified (11/30/23) Other abnormalities of gait and mobility (11/30/23) Aftercare following joint replacement surgery (11/30/23) Presence of right artificial knee joint (11/30/23) Visit Care Team Role Provider Type Ernesto Garland MD Attending Provider Non-Staff Referring Provider Specialty: Orthopedics Address: [address] [place] [address], [id number] Email: Plan Of Care PT-OP-T Assessment and Plan Start: 10/17/23 17:48 Freq: Status: Active Protocol: Document 11/30/23 10:30 DCW (Rec: 11/30/23 11:16 DCW [id number]) Physical Therapy Assessment Goals Three Impairment Pt completes two minute walk test ambulating 140' Correction Goal (LTG) Pt to tolerate a full 6MWT without an assistive device, ambulating >1000' in order to demonstrate return to prior gait function LTG Duration 01/30/24 - Improving /c SPC Two Impairment Right knee AROM limited 11?-57 ? Correction Goal (LTG) Pt to improve active knee ROM to 0?-120? 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 11/16/23: 0-88 deg AAROM flexion post manual and ther ex LTG Duration 01/30/24 progressing One Impairment Pt does not have an appropriate home exercise program Short Term Goal (STG) Pt to be independent and compliant with an appropriate HEP 11/08-07/24: added mini squat, lateral stepping, heel toe gait. Heel slides use of strap foot on tball if beneficial and less pain. STG Duration 12/31/23 Assessment Summary Assessment Dramatic improvement overall two days s/p pt's REBEL. Able to get around on recumbent bike for the first time, flexion max measured at 102?. Pt should benefit from continued therapy to improve remaining ROM and strength deficits, gait difficulties, and pain control. Physical Therapy Plan Frequency and Duration Frequency of Treatment 2x/Week Plan of Care Start Date 11/30/23 Plan of Care End Date 01/30/24 Therapeutic Interventions Therapeutic Interventions Balance Training,Gait Training ,Home Exercise Program,Joint Mobilizations,Manual Therapy, Neuromuscular Re-education, Patient/Caregiver Education, Self-Care/Home Management,Soft Tissue Mobilization,Taping, Therapeutic Activities, Therapeutic Exercises Modalities Cold Pack/Ice Massage,Electric Stimulation,Hot Packs, Ultrasound Next Visit Focus/Plan Next Note Type Treatment Note Next Visit Plan Check response to hurdles, stair mgt last tx. Ortho appt Fri. Continue: progress R knee ROM and gait phase stepping unsupported. HEP review. Next initiate hurdles and sit/stands. POC:Knee ROM/strengthening, gait training Plan of Care Dates Plan of Care Start Date 11/30/23 Plan of Care End Date 01/30/24 Electronically Signed by: Nicholas White, PT 11/30/23 0673 If you are in agreement with this Plan of Care, please return a signed and dated copy. I have reviewed this Plan of Care and certify that the skilled therapy services above are required to meet the patient?s needs. Physician Signature Date Printed Name and Credentials Clinical Instructor Signature Printed Name and Credentials
--- NOTE | 2023-12-02 11:17 | PT.OTN ---
Current Diagnoses Pain in right knee (12/02/23) Stiffness of right knee, not elsewhere classified (12/02/23) Other abnormalities of gait and mobility (12/02/23) Aftercare following joint replacement surgery (12/02/23) Presence of right artificial knee joint (12/02/23) Physical Therapy Treatment Note PT-OP-A Visit Information Start: 10/17/23 17:48 Freq: Status: Active Protocol: Document 12/02/23 10:30 DCW (Rec: 12/02/23 11:17 DCW [id number]) Out-Patient Physical Therapy Visit Information Visit Information Visit Type Re-Evaluation Visit Note 6 initial visits approved completed 03/12 visit 2nd set approved Visit Start Time 10:30 Visit Stop Time 11:20 Visit Number 14 Number of MARKET MAKER Visits 0 Evaluation Information Evaluation Date 10/17/23 PT-OP-B Current Condition Start: 10/17/23 17:48 Freq: Status: Active Protocol: Document 11/30/23 10:30 DCW (Rec: 11/30/23 11:16 DCW [id number]) Current Condition History of Current Condition Onset Date 10/10/23 Current Complaints Right knee pain and stiffness s/p R TKA History of Current Condition Pt is a 58 year old female presenting one week s/p right TKA. Pt notes biggest current limiting factor is pain. Feels post-op swelling and tightness is greatly restricting her mobility. Has been consistent so far with post-op HEP, including ankle pumps, heel slides, SAQ, LAQ, and knee flexion/extension stretches. Pt using FWW for gait, heavily using UEs for stability. Has been wearing compression stockings and icing regularly. ADDENDUM 11/30/23: Pt underwent REBEL on 11/27, instructed to continue with PT, no change in frequency. PT-OP-C Subjective Start: 10/17/23 17:48 Freq: Status: Active Protocol: Document 12/02/23 10:30 DCW (Rec: 12/02/23 11:17 DCW [id number]) OP-PT Subjective Patient Comments Patient Comments Pt still feeling much better following REBEL tuesday. PT-OP-E Functional Tests Start: 10/17/23 17:48 Freq: Status: Active Protocol: Document 11/30/23 10:30 DCW (Rec: 11/30/23 10:48 DCW [id number]) Functional Tests 6 Minute Walk Test Distance 1054' Device Used SPC Comments 2.93 ft/sec PT-OP-G Mobility & Gait Start: 10/17/23 17:48 Freq: Status: Active Protocol: Document 10/17/23 13:45 DCW (Rec: 10/18/23 09:33 DCW [id number]) OP Gait Assessment Comments Gait Comments Ambulates with no right knee flexion, moderate right antalgia. Pt uses a step- through gait pattern and heavily relies on her UEs for support. Stair Climbing Evaluation Evaluation Level of Assist On Stairs Contact Guard Assistance Devices Stair Climbing Assistive Devices Left Railing,Right Railing Technique/Endurance Stair Climbing Direction Ascend and Descend Stair Climbing Technique Step to Step Number of Steps Climbed 4 PT-OP-K Range of Motion Start: 10/17/23 17:48 Freq: Status: Active Protocol: Document 11/30/23 10:30 DCW (Rec: 11/30/23 10:48 DCW [id number]) Knee Goniometric Range of Motion Knee Right Knee ROM WFL No Patient Position Supine Flexion Active (degrees) 90 Flexion Passive (degrees) 95 Extension Active (degrees) 5 Extension Passive (degrees) 5 Comments 13* extension lag Knee ROM Limitations Knee ROM Limitations Muscle Weakness,Muscle Tone, Pain,Swelling PT-OP-M Strength Start: 10/17/23 17:48 Freq: Status: Active Protocol: Document 11/30/23 10:30 DCW (Rec: 11/30/23 10:48 DCW [id number]) Knee Strength Knee Manual Muscle Testing Right Flexion (S2) 3- Fair- Extension (L3) 3- Fair- PT-OP-Q Treatments Start: 10/17/23 17:48 Freq: Status: Active Protocol: Document 12/02/23 10:30 DCW (Rec: 12/02/23 11:17 DCW [id number]) Cardio Equipment Recumbent Bicycle Duration (Minutes) 6 Resistance 0 Seat Position 5 Other Multiple full rotations, lateral body shift to get around. Gym Equipment Shuttle Recovery Bilateral Squats Resistance 62# (2 navy) Shuttle Recovery Platform Stable Shuttle Balance Red Details WBOS, Staggered weight shift Manual Therapy Treatment Soft Tissue Mobilization scar mobility Body Location R knee Body Position Supine Comments support medial & lateral of scar- sup/inf/Med/Lateral Joint Mobilizations Patellar Joint R Patella Direction Inferior<->Superior Grade III Body Position Hooklying Comments R knee straight Right knee Joint R tibofemoral, prox fib Direction A<->P Grade III Body Position sit Comments into various flexion ranges tolerant PT-OP-R Modalities Start: 10/28/23 10:30 Freq: Status: Active Protocol: Document 12/02/23 10:30 DCW (Rec: 12/02/23 11:17 DCW [id number]) Hot Pack/Cold Pack Treatment Cold Pack Location R knee Patient Position Hooklying Patient Tolerance Good PT-OP-T Assessment and Plan Start: 10/17/23 17:48 Freq: Status: Active Protocol: Document 12/02/23 10:30 DCW (Rec: 12/02/23 11:17 DCW [id number]) Physical Therapy Assessment Impairments Impairments Activity Tolerance,Functional Activities,Functional Mobility ,Gait,Integument,Pain,ROM,Soft Tissue Mobility,Strength, Transfers Goals Three Impairment Pt completes two minute walk test ambulating 140' Senior Living Goal (LTG) Pt to tolerate a full 6MWT without an assistive device, ambulating >1000' in order to demonstrate return to prior gait function LTG Duration 01/30/24 - Improving /c SPC Two Impairment Right knee AROM limited 11?-57 ? Peripatologist Goal (LTG) Pt to improve active knee ROM to 0?-120? 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 11/16/23: 0-88 deg AAROM flexion post manual and ther ex LTG Duration 01/30/24 progressing One Impairment Pt does not have an appropriate home exercise program Short Term Goal (STG) Pt to be independent and compliant with an appropriate HEP 11/08-07/24: added mini squat, lateral stepping, heel toe gait. Heel slides use of strap foot on tball if beneficial and less pain. STG Duration 12/31/23 Assessment Summary Assessment Pt continues to do well s/p manipulation, improving ROM and mobility of patella. Addition of balance challenges and strengthening of LE, good response to activity. Physical Therapy Plan Frequency and Duration Frequency of Treatment 2x/Week Plan of Care Start Date 11/30/23 Plan of Care End Date 01/30/24 Therapeutic Interventions Therapeutic Interventions Balance Training,Gait Training ,Home Exercise Program,Joint Mobilizations,Manual Therapy, Neuromuscular Re-education, Patient/Caregiver Education, Self-Care/Home Management,Soft Tissue Mobilization,Taping, Therapeutic Activities, Therapeutic Exercises Modalities Cold Pack/Ice Massage,Electric Stimulation,Hot Packs, Ultrasound Next Visit Focus/Plan Next Note Type Treatment Note Next Visit Plan Check response to hurdles, stair mgt last tx. Ortho appt Tue. Continue: progress R knee ROM and gait phase stepping unsupported. HEP review. Next initiate hurdles and sit/stands. POC:Knee ROM/strengthening, gait training
--- NOTE | 2023-12-05 14:30 | PT.OTN ---
Current Diagnoses Pain in right knee (12/05/23) Stiffness of right knee, not elsewhere classified (12/05/23) Other abnormalities of gait and mobility (12/05/23) Aftercare following joint replacement surgery (12/05/23) Presence of right artificial knee joint (12/05/23) Physical Therapy Treatment Note PT-OP-A Visit Information Start: 10/17/23 17:48 Freq: Status: Active Protocol: Document 12/05/23 13:45 DCW (Rec: 12/05/23 14:30 DCW [id number]) Out-Patient Physical Therapy Visit Information Visit Information Visit Type Re-Evaluation Visit Note 6 initial visits approved completed 04/12 visit 2nd set approved Visit Start Time 13:45 Visit Stop Time 14:30 Visit Number 15 Number of STENCIL INSPECTOR Visits 0 Evaluation Information Evaluation Date 10/17/23 PT-OP-B Current Condition Start: 10/17/23 17:48 Freq: Status: Active Protocol: Document 11/30/23 10:30 DCW (Rec: 11/30/23 11:16 DCW [id number]) Current Condition History of Current Condition Onset Date 10/10/23 Current Complaints Right knee pain and stiffness s/p R TKA History of Current Condition Pt is a 58 year old female presenting one week s/p right TKA. Pt notes biggest current limiting factor is pain. Feels post-op swelling and tightness is greatly restricting her mobility. Has been consistent so far with post-op HEP, including ankle pumps, heel slides, SAQ, LAQ, and knee flexion/extension stretches. Pt using FWW for gait, heavily using UEs for stability. Has been wearing compression stockings and icing regularly. ADDENDUM 11/30/23: Pt underwent REBEL on 11/27, instructed to continue with PT, no change in frequency. PT-OP-C Subjective Start: 10/17/23 17:48 Freq: Status: Active Protocol: Document 12/05/23 13:45 DCW (Rec: 12/05/23 14:30 DCW [id number]) OP-PT Subjective Patient Comments Patient Comments Pt noting she has been getting occasional pain/pulling distal quad/superior patella when on home bike. PT-OP-E Functional Tests Start: 10/17/23 17:48 Freq: Status: Active Protocol: Document 11/30/23 10:30 DCW (Rec: 11/30/23 10:48 DCW [id number]) Functional Tests 6 Minute Walk Test Distance 1054' Device Used SPC Comments 2.93 ft/sec PT-OP-G Mobility & Gait Start: 10/17/23 17:48 Freq: Status: Active Protocol: Document 10/17/23 13:45 DCW (Rec: 10/18/23 09:33 DCW [id number]) OP Gait Assessment Comments Gait Comments Ambulates with no right knee flexion, moderate right antalgia. Pt uses a step- through gait pattern and heavily relies on her UEs for support. Stair Climbing Evaluation Evaluation Level of Assist On Stairs Contact Guard Assistance Devices Stair Climbing Assistive Devices Left Railing,Right Railing Technique/Endurance Stair Climbing Direction Ascend and Descend Stair Climbing Technique Step to Step Number of Steps Climbed 4 PT-OP-K Range of Motion Start: 10/17/23 17:48 Freq: Status: Active Protocol: Document 11/30/23 10:30 DCW (Rec: 11/30/23 10:48 DCW [id number]) Knee Goniometric Range of Motion Knee Right Knee ROM WFL No Patient Position Supine Flexion Active (degrees) 90 Flexion Passive (degrees) 95 Extension Active (degrees) 5 Extension Passive (degrees) 5 Comments 13* extension lag Knee ROM Limitations Knee ROM Limitations Muscle Weakness,Muscle Tone, Pain,Swelling PT-OP-M Strength Start: 10/17/23 17:48 Freq: Status: Active Protocol: Document 11/30/23 10:30 DCW (Rec: 11/30/23 10:48 DCW [id number]) Knee Strength Knee Manual Muscle Testing Right Flexion (S2) 3- Fair- Extension (L3) 3- Fair- PT-OP-Q Treatments Start: 10/17/23 17:48 Freq: Status: Active Protocol: Document 12/05/23 13:45 DCW (Rec: 12/05/23 14:30 DCW [id number]) Cardio Equipment Recumbent Bicycle Duration (Minutes) 6 Resistance 0 Seat Position 5 Other Multiple full rotations, lateral body shift to get around. Gym Equipment Shuttle Recovery Bilateral Squats Details R knee 104? Resistance 62# (2 navy) Shuttle Recovery Platform Stable Shuttle Balance Red Details WBOS, Staggered weight shift Therapeutic Exercises Supine Exercises Wall slides Supine Exercise Name Wall slides into flexion stretch Side right Resistance 5# leg wt Comments AAROM 105? flexion Manual Therapy Treatment Soft Tissue Mobilization scar mobility Body Location R knee Body Position Supine Comments support medial & lateral of scar- sup/inf/Med/Lateral Joint Mobilizations Patellar Joint R Patella Direction Inferior<->Superior Grade III Body Position Hooklying Comments R knee straight Right knee Joint R tibofemoral, prox fib Direction A<->P Grade III Body Position sit Comments into various flexion ranges tolerant PT-OP-R Modalities Start: 10/28/23 10:30 Freq: Status: Active Protocol: Document 12/05/23 13:45 DCW (Rec: 12/05/23 14:30 DCW [id number]) Hot Pack/Cold Pack Treatment Cold Pack Location R knee Patient Position Hooklying Patient Tolerance Good PT-OP-T Assessment and Plan Start: 10/17/23 17:48 Freq: Status: Active Protocol: Document 12/05/23 13:45 DCW (Rec: 12/05/23 14:30 DCW [id number]) Physical Therapy Assessment Impairments Impairments Activity Tolerance,Functional Activities,Functional Mobility ,Gait,Integument,Pain,ROM,Soft Tissue Mobility,Strength, Transfers Goals Three Impairment Pt completes two minute walk test ambulating 140' Mcfp Goal (LTG) Pt to tolerate a full 6MWT without an assistive device, ambulating >1000' in order to demonstrate return to prior gait function LTG Duration 01/30/24 - Improving /c SPC Two Impairment Right knee AROM limited 11?-57 ? Radiological Engineer Goal (LTG) Pt to improve active knee ROM to 0?-120? in order to return to prior levels of function and allow pt to return to hobby of competitive [employer] skating 11/11/23: 4-86deg post manual and exercises. 11/16/23: 0-88 deg AAROM flexion post manual and ther ex LTG Duration 01/30/24 progressing One Impairment Pt does not have an appropriate home exercise program Short Term Goal (STG) Pt to be independent and compliant with an appropriate HEP 11/08-07/24: added mini squat, lateral stepping, heel toe gait. Heel slides use of strap foot on tball if beneficial and less pain. STG Duration 12/31/23 Assessment Summary Assessment Pt increasing max knee flexion to 105? today, showing improvement with gait and balance. Continue to focus on ROM, strengthening, and stability. Physical Therapy Plan Frequency and Duration Frequency of Treatment 2x/Week Plan of Care Start Date 11/30/23 Plan of Care End Date 01/30/24 Therapeutic Interventions Therapeutic Interventions Balance Training,Gait Training ,Home Exercise Program,Joint Mobilizations,Manual Therapy, Neuromuscular Re-education, Patient/Caregiver Education, Self-Care/Home Management,Soft Tissue Mobilization,Taping, Therapeutic Activities, Therapeutic Exercises Modalities Cold Pack/Ice Massage,Electric Stimulation,Hot Packs, Ultrasound Next Visit Focus/Plan Next Note Type Treatment Note Next Visit Plan Check response to hurdles, stair mgt last tx. Ortho appt Tue. Continue: progress R knee ROM and gait phase stepping unsupported. HEP review. Next initiate hurdles and sit/stands. POC:Knee ROM/strengthening, gait training
--- NOTE | 2023-12-07 16:35 | PT.OTN ---
Current Diagnoses Pain in right knee (12/07/23) Stiffness of right knee, not elsewhere classified (12/07/23) Other abnormalities of gait and mobility (12/07/23) Aftercare following joint replacement surgery (12/07/23) Presence of right artificial knee joint (12/07/23) Physical Therapy Treatment Note PT-OP-A Visit Information Start: 10/17/23 17:48 Freq: Status: Active Protocol: Document 12/07/23 13:50 AB (Rec: 12/07/23 16:35 AB [id number]) Out-Patient Physical Therapy Visit Information Visit Information Visit Type Treatment Note Visit Note 6 initial visits approved completed 05/12 visit 2nd set approved [email or web address] Access [email or web address]: [email or web address] Visit Start Time 14:33 Visit Stop Time 15:26 Visit Number 16 Number of SCHEDULING MANAGER Visits 1 Evaluation Information Evaluation Date 10/17/23 PT-OP-B Current Condition Start: 10/17/23 17:48 Freq: Status: Active Protocol: Document 11/30/23 10:30 DCW (Rec: 11/30/23 11:16 DCW [id number]) Current Condition History of Current Condition Onset Date 10/10/23 Current Complaints Right knee pain and stiffness s/p R TKA History of Current Condition Pt is a 58 year old female presenting one week s/p right TKA. Pt notes biggest current limiting factor is pain. Feels post-op swelling and tightness is greatly restricting her mobility. Has been consistent so far with post-op HEP, including ankle pumps, heel slides, SAQ, LAQ, and knee flexion/extension stretches. Pt using FWW for gait, heavily using UEs for stability. Has been wearing compression stockings and icing regularly. ADDENDUM 11/30/23: Pt underwent REBEL on 11/27, instructed to continue with PT, no change in frequency. PT-OP-C Subjective Start: 10/17/23 17:48 Freq: Status: Active Protocol: Document 12/07/23 13:50 AB (Rec: 12/07/23 16:35 AB [id number]) OP-PT Subjective Patient Comments Patient Comments Patient into session without device. Patient reports she is definately not worse, is hoping that she is better. Patient reports the hurdles were a good exercise. Lacking 7 deg extension to 103 deg flexion AROM right knee, dec quad activation with quad set noted right knee. SLS 15+ seconds with minimal sway when head turns and visual scanning added post 15 sec, but with reports of pain end of test. PT-OP-E Functional Tests Start: 10/17/23 17:48 Freq: Status: Active Protocol: Document 11/30/23 10:30 DCW (Rec: 11/30/23 10:48 DCW [id number]) Functional Tests 6 Minute Walk Test Distance 1054' Device Used SPC Comments 2.93 ft/sec PT-OP-G Mobility & Gait Start: 10/17/23 17:48 Freq: Status: Active Protocol: Document 10/17/23 13:45 DCW (Rec: 10/18/23 09:33 DCW [id number]) OP Gait Assessment Comments Gait Comments Ambulates with no right knee flexion, moderate right antalgia. Pt uses a step- through gait pattern and heavily relies on her UEs for support. Stair Climbing Evaluation Evaluation Level of Assist On Stairs Contact Guard Assistance Devices Stair Climbing Assistive Devices Left Railing,Right Railing Technique/Endurance Stair Climbing Direction Ascend and Descend Stair Climbing Technique Step to Step Number of Steps Climbed 4 PT-OP-K Range of Motion Start: 10/17/23 17:48 Freq: Status: Active Protocol: Document 11/30/23 10:30 DCW (Rec: 11/30/23 10:48 DCW [id number]) Knee Goniometric Range of Motion Knee Right Knee ROM WFL No Patient Position Supine Flexion Active (degrees) 90 Flexion Passive (degrees) 95 Extension Active (degrees) 5 Extension Passive (degrees) 5 Comments 13* extension lag Knee ROM Limitations Knee ROM Limitations Muscle Weakness,Muscle Tone, Pain,Swelling PT-OP-M Strength Start: 10/17/23 17:48 Freq: Status: Active Protocol: Document 11/30/23 10:30 DCW (Rec: 11/30/23 10:48 DCW [id number]) Knee Strength Knee Manual Muscle Testing Right Flexion (S2) 3- Fair- Extension (L3) 3- Fair- PT-OP-Q Treatments Start: 10/17/23 17:48 Freq: Status: Active Protocol: Document 12/07/23 13:50 AB (Rec: 12/07/23 16:35 AB [id number]) Therapeutic Exercises Supine Exercises SLR Side right Reps/Minutes X10 Comments Verbal cues to quad set and hold the knee straight throughout SLR hamstring stretch Supine Exercise Name from hooklying Side right Reps/Minutes 60 seconds X 2 gravity assisted knee flexion Side right Equipment Used towel Reps/Minutes 60 seconds X 3 heel slides Supine Exercise Name AROM Side right Reps/Minutes 2X10 Comments post stretches Prone Exercises Prone knee flexion AROM Side right Reps/Minutes X10 Comments verbal cues prone quad set Side right Reps/Minutes X10 Comments Verbal cues prone knee flexion with over pressure Side right Reps/Minutes X1 60 sec Sitting Exercises tapping to facilitate quad followed by quad set Side right Reps/Minutes X10 Comments Verbal and visual cues Manual Therapy Treatment Soft Tissue Mobilization R leg Body Location quad, HS, Mobilization Type Cross-Friction,Rolling Intensity/Depth Moderate Body Position Hooklying Comments Pt ed to perform prior to exercise scar mobility Body Location R knee Mobilization Type Cross-Friction Intensity/Depth Superficial Body Position Supine Comments to moderate Patient ed to perform prior to exercise Joint Mobilizations Patellar Joint R Patella Direction Inferior<->Superior, med/lat, CW and CCW Grade IV Body Position Hooklying Comments R knee straight Manual Techniques PROM Type contract relax Body Location right knee Body Position Prone Reps/Duration one minute X 1 Self-Care/Home Management Treatment Education Other Education Pt ed to continue to use SPC when out of the home. PT-OP-R Modalities Start: 10/28/23 10:30 Freq: Status: Active Protocol: Document 12/07/23 13:50 AB (Rec: 12/07/23 16:35 AB [id number]) Hot Pack/Cold Pack Treatment Cold Pack Location R knee Patient Position Hooklying PT-OP-T Assessment and Plan Start: 10/17/23 17:48 Freq: Status: Active Protocol: Document 12/07/23 13:50 AB (Rec: 12/07/23 16:35 AB [id number]) Physical Therapy Assessment Goals Three Impairment Pt completes two minute walk test ambulating 140' Detention Goal (LTG) Pt to tolerate a full 6MWT without an assistive device, ambulating >1000' in order to demonstrate return to prior gait function LTG Duration 01/30/24 - Improving /c SPC Two Impairment Right knee AROM limited 11?-57 ? Detention Goal (LTG) Pt to improve active knee ROM to 0?-120? 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 11/16/23: 0-88 deg AAROM flexion post manual and ther ex LTG Duration 01/30/24 progressing One Impairment Pt does not have an appropriate home exercise program Short Term Goal (STG) Pt to be independent and compliant with an appropriate HEP 11/08-07/24: added mini squat, lateral stepping, heel toe gait. Heel slides use of strap foot on tball if beneficial and less pain. STG Duration 12/31/23 Assessment Summary Assessment Patient reports the knee feels the same AROM lacking 3 deg ext to 104 deg flexion right knee end of session. Physical Therapy Plan Frequency and Duration Frequency of Treatment 2x/Week Plan of Care Start Date 11/30/23 Plan of Care End Date 01/30/24 Next Visit Focus/Plan Next Note Type Treatment Note Next Visit Plan Ortho appt Tue. Continue: progress R knee ROM and gait phase stepping unsupported. HEP review. Next initiate hurdles and sit/stands/wall squats POC:Knee ROM/strengthening, gait training 2092
--- NOTE | 2023-12-13 15:56 | PT.OTN ---
Current Diagnoses Pain in right knee (12/13/23) Stiffness of right knee, not elsewhere classified (12/13/23) Other abnormalities of gait and mobility (12/13/23) Aftercare following joint replacement surgery (12/13/23) Presence of right artificial knee joint (12/13/23) Physical Therapy Treatment Note PT-OP-A Visit Information Start: 10/17/23 17:48 Freq: Status: Active Protocol: Document 12/13/23 14:39 SW (Rec: 12/13/23 15:42 SW [id number]) Out-Patient Physical Therapy Visit Information Visit Information Visit Type Treatment Note Visit Note 6 initial visits approved completed 08/12 visit 2nd set approved [email or web address] Access Code: [email or web address] Visit Start Time 14:34 Visit Stop Time 15:24 Visit Number 17 Number of ILLUMINATOR Visits 2 PT-OP-B Current Condition Start: 10/17/23 17:48 Freq: Status: Active Protocol: Document 11/30/23 10:30 DCW (Rec: 11/30/23 11:16 DCW [id number]) Current Condition History of Current Condition Onset Date 10/10/23 Current Complaints Right knee pain and stiffness s/p R TKA History of Current Condition Pt is a 58 year old female presenting one week s/p right TKA. Pt notes biggest current limiting factor is pain. Feels post-op swelling and tightness is greatly restricting her mobility. Has been consistent so far with post-op HEP, including ankle pumps, heel slides, SAQ, LAQ, and knee flexion/extension stretches. Pt using FWW for gait, heavily using UEs for stability. Has been wearing compression stockings and icing regularly. ADDENDUM 11/30/23: Pt underwent REBEL on 11/27, instructed to continue with PT, no change in frequency. PT-OP-C Subjective Start: 10/17/23 17:48 Freq: Status: Active Protocol: Document 12/13/23 14:39 SW (Rec: 12/13/23 15:42 SW [id number]) OP-PT Subjective Patient Comments Patient Comments Pt reports doing a lot of standing, started to feel stiff and pain, needed to sit. PT-OP-E Functional Tests Start: 10/17/23 17:48 Freq: Status: Active Protocol: Document 11/30/23 10:30 DCW (Rec: 11/30/23 10:48 DCW [id number]) Functional Tests 6 Minute Walk Test Distance 1054' Device Used SPC Comments 2.93 ft/sec PT-OP-G Mobility & Gait Start: 10/17/23 17:48 Freq: Status: Active Protocol: Document 10/17/23 13:45 DCW (Rec: 10/18/23 09:33 DCW [id number]) OP Gait Assessment Comments Gait Comments Ambulates with no right knee flexion, moderate right antalgia. Pt uses a step- through gait pattern and heavily relies on her UEs for support. Stair Climbing Evaluation Evaluation Level of Assist On Stairs Contact Guard Assistance Devices Stair Climbing Assistive Devices Left Railing,Right Railing Technique/Endurance Stair Climbing Direction Ascend and Descend Stair Climbing Technique Step to Step Number of Steps Climbed 4 PT-OP-K Range of Motion Start: 10/17/23 17:48 Freq: Status: Active Protocol: Document 11/30/23 10:30 DCW (Rec: 11/30/23 10:48 DCW [id number]) Knee Goniometric Range of Motion Knee Right Knee ROM WFL No Patient Position Supine Flexion Active (degrees) 90 Flexion Passive (degrees) 95 Extension Active (degrees) 5 Extension Passive (degrees) 5 Comments 13* extension lag Knee ROM Limitations Knee ROM Limitations Muscle Weakness,Muscle Tone, Pain,Swelling PT-OP-M Strength Start: 10/17/23 17:48 Freq: Status: Active Protocol: Document 11/30/23 10:30 DCW (Rec: 11/30/23 10:48 DCW [id number]) Knee Strength Knee Manual Muscle Testing Right Flexion (S2) 3- Fair- Extension (L3) 3- Fair- PT-OP-Q Treatments Start: 10/17/23 17:48 Freq: Status: Active Protocol: Document 12/13/23 14:39 SW (Rec: 12/13/23 15:42 SW [id number]) Gym Equipment Shuttle Recovery Bilateral Squats Details R knee 104? Resistance 62# (2 navy) Shuttle Recovery Platform Stable Shuttle Balance Red Details WBOS, Staggered weight shift Comments cued for forward gaze vs at feet to increase challenge w/ WBOS Therapeutic Exercises Supine Exercises SLR Supine Exercise Name SLR w/tapping to facilitate quad activation Side right Reps/Minutes X10 Comments Verbal cues to quad set and hold the knee straight throughout SLR gravity assisted knee flexion Side right Equipment Used wall, contralateral LE Reps/Minutes 60 seconds X 3 Wall slides Supine Exercise Name Wall slides into flexion stretch Side right Resistance 5# leg wt Comments AAROM Sitting Exercises tapping to facilitate quad followed by quad set Sitting Exercise Name Tapping w/SAQ Side right Reps/Minutes X10 Comments Verbal and visual cues Standing Exercises Gastroc/soleus stretch Standing Exercise Name Gastroc/soleus stretch Equipment Used Tariq Reps/Minutes 2 x 30 ea Comments good feedback with soleus stretch Manual Therapy Treatment Soft Tissue Mobilization scar mobility Body Location R knee Mobilization Type Cross-Friction Intensity/Depth Superficial Body Position Supine Comments to moderate Patient ed to perform prior to exercise Joint Mobilizations Patellar Joint R Patella Direction Inferior<->Superior, med/lat, CW and CCW Grade IV Body Position Hooklying Comments R knee straight Manual Techniques PROM Type contract relax Body Location right knee Body Position Supine Reps/Duration one minute X 1 PT-OP-R Modalities Start: 10/28/23 10:30 Freq: Status: Active Protocol: Document 12/13/23 14:39 SW (Rec: 12/13/23 15:42 [id number]) Hot Pack/Cold Pack Treatment Cold Pack Location R knee Patient Position Hooklying Patient Tolerance Good Comments x10 min, moreira within reach PT-OP-T Assessment and Plan Start: 10/17/23 17:48 Freq: Status: Active Protocol: Document 12/13/23 14:39 SW (Rec: 12/13/23 15:42 [id number]) Physical Therapy Assessment Goals Three Impairment Pt completes two minute walk test ambulating 140' Order Taker Goal (LTG) Pt to tolerate a full 6MWT without an assistive device, ambulating >1000' in order to demonstrate return to prior gait function LTG Duration 01/30/24 - Improving /c SPC Two Impairment Right knee AROM limited 11?-57 ? Fdc Goal (LTG) Pt to improve active knee ROM to 0?-120? in order to return to prior levels of function and allow pt to return to hobby of competitive [employer] skating 11/11/23: 4-86deg post manual and exercises. 11/16/23: 0-88 deg AAROM flexion post manual and ther ex LTG Duration 01/30/24 progressing One Impairment Pt does not have an appropriate home exercise program Short Term Goal (STG) Pt to be independent and compliant with an appropriate HEP 11/08-07/24: added mini squat, lateral stepping, heel toe gait. Heel slides use of strap foot on tball if beneficial and less pain. STG Duration 12/31/23 Assessment Summary Assessment Pt may benefit from continued patellar mobilizations. Pt continues to present with lag during SLR. Continued focus on quad strength this session and ROM. Pt has pain in Low back when lying prone even with pillow positioning, may benefit from exercises in supine vs prone. Physical Therapy Plan Frequency and Duration Frequency of Treatment 2x/Week Plan of Care Start Date 11/30/23 Plan of Care End Date 01/30/24 Therapeutic Interventions Therapeutic Interventions Balance Training,Gait Training ,Home Exercise Program,Joint Mobilizations,Manual Therapy, Neuromuscular Re-education, Patient/Caregiver Education, Self-Care/Home Management,Soft Tissue Mobilization,Taping, Therapeutic Activities, Therapeutic Exercises Modalities Cold Pack/Ice Massage,Electric Stimulation,Hot Packs, Ultrasound Next Visit Focus/Plan Next Note Type Treatment Note Next Visit Plan Ortho appt Fri. Continue: progress R knee ROM and gait phase stepping unsupported. HEP review. Next initiate hurdles and sit/stands/wall squats POC:Knee ROM/strengthening, gait training
--- NOTE | 2023-12-15 16:53 | PT.OTN ---
Current Diagnoses Pain in right knee (12/15/23) Stiffness of right knee, not elsewhere classified (12/15/23) Other abnormalities of gait and mobility (12/15/23) Aftercare following joint replacement surgery (12/15/23) Presence of right artificial knee joint (12/15/23) Physical Therapy Treatment Note PT-OP-A Visit Information Start: 10/17/23 17:48 Freq: Status: Active Protocol: Document 12/15/23 15:24 AB (Rec: 12/15/23 16:35 AB [id number]) Out-Patient Physical Therapy Visit Information Visit Information Visit Type Treatment Note Visit Note 6 initial visits approved completed 09/12 visit 2nd set approved [email or web address] Access [email or web address]: [email or web address] Visit Start Time 15:17 Visit Stop Time 16:11 Visit Number 18 Number of GLASS CUTTER Visits 3 PT-OP-B Current Condition Start: 10/17/23 17:48 Freq: Status: Active Protocol: Document 11/30/23 10:30 DCW (Rec: 11/30/23 11:16 DCW [id number]) Current Condition History of Current Condition Onset Date 10/10/23 Current Complaints Right knee pain and stiffness s/p R TKA History of Current Condition Pt is a 58 year old female presenting one week s/p right TKA. Pt notes biggest current limiting factor is pain. Feels post-op swelling and tightness is greatly restricting her mobility. Has been consistent so far with post-op HEP, including ankle pumps, heel slides, SAQ, LAQ, and knee flexion/extension stretches. Pt using FWW for gait, heavily using UEs for stability. Has been wearing compression stockings and icing regularly. ADDENDUM 11/30/23: Pt underwent REBEL on 11/27, instructed to continue with PT, no change in frequency. PT-OP-C Subjective Start: 10/17/23 17:48 Freq: Status: Active Protocol: Document 12/15/23 15:24 AB (Rec: 12/15/23 16:35 AB [id number]) OP-PT Subjective Patient Comments Patient Comments Patient reports 2/10 discomfort stiff. Patient reports doing increased sitting and standing due to attending a concert and driving home from concert today. AROM right knee start of session lacking 5 deg ext to 102 deg flexion. Patient Questionnaires Lower Extremity Functional Scale LEFS Score 51 PT-OP-E Functional Tests Start: 10/17/23 17:48 Freq: Status: Active Protocol: Document 12/15/23 15:24 AB (Rec: 12/15/23 16:37 AB [id number]) Functional Tests Timed Up and Go (TUG) Score 8.55 seconds Comments sit to stand with right knee in greater than 90 deg flexion PT-OP-G Mobility & Gait Start: 10/17/23 17:48 Freq: Status: Active Protocol: Document 10/17/23 13:45 DCW (Rec: 10/18/23 09:33 DCW [id number]) OP Gait Assessment Comments Gait Comments Ambulates with no right knee flexion, moderate right antalgia. Pt uses a step- through gait pattern and heavily relies on her UEs for support. Stair Climbing Evaluation Evaluation Level of Assist On Stairs Contact Guard Assistance Devices Stair Climbing Assistive Devices Left Railing,Right Railing Technique/Endurance Stair Climbing Direction Ascend and Descend Stair Climbing Technique Step to Step Number of Steps Climbed 4 PT-OP-K Range of Motion Start: 10/17/23 17:48 Freq: Status: Active Protocol: Document 12/15/23 15:24 AB (Rec: 12/15/23 16:39 AB [id number]) Knee Goniometric Range of Motion Knee Right Knee ROM WFL No Patient Position Supine Flexion Active (degrees) 105 Extension Active (degrees) 3 Comments lacking 3 deg extension, quad lag with SLR persists as well as decreased quad activation with quad set. PT-OP-M Strength Start: 10/17/23 17:48 Freq: Status: Active Protocol: Document 11/30/23 10:30 DCW (Rec: 11/30/23 10:48 DCW [id number]) Knee Strength Knee Manual Muscle Testing Right Flexion (S2) 3- Fair- Extension (L3) 3- Fair- PT-OP-Q Treatments Start: 10/17/23 17:48 Freq: Status: Active Protocol: Document 12/15/23 15:24 AB (Rec: 12/15/23 16:35 AB [id number]) Therapeutic Exercises Supine Exercises knee flexion with feet on ball Side bilateral Reps/Minutes 2 min SLR Side right Reps/Minutes X10 Comments Verbal cues to quad set and hold the knee straight throughout SLR hamstring stretch Supine Exercise Name from hooklying Side right Reps/Minutes 60 seconds X 2 gravity assisted knee flexion Reps/Minutes 5 minutes heel slides Supine Exercise Name AROM Side right Reps/Minutes X10 Comments post stretches Wall slides Supine Exercise Name Wall slides into flexion stretch Side right Resistance with over pressure Reps/Minutes 5 min Comments VC to slide LE down further every few minutes Sitting Exercises tapping to facilitate quad followed by quad set Side right Reps/Minutes X10 Manual Therapy Treatment Soft Tissue Mobilization scar mobility Body Location R knee quad and hamstring Mobilization Type Cross-Friction Intensity/Depth Superficial Body Position Supine Comments to moderate Patient ed to perform prior to exercise Joint Mobilizations Patellar Joint R Patella Direction Inferior<->Superior, med/lat, CW and CCW Grade IV Body Position Hooklying Comments R knee straight Manual Techniques PROM Type contract relax Body Location right knee Body Position Hooklying Reps/Duration one minute into extension PT-OP-R Modalities Start: 10/28/23 10:30 Freq: Status: Active Protocol: Document 12/15/23 15:24 AB (Rec: 12/15/23 16:35 AB [id number]) Hot Pack/Cold Pack Treatment Cold Pack Location R knee Patient Position Hooklying Patient Tolerance Good Comments x10 min, moreira within reach PT-OP-T Assessment and Plan Start: 10/17/23 17:48 Freq: Status: Active Protocol: Document 12/15/23 15:24 AB (Rec: 12/15/23 16:35 AB [id number]) Physical Therapy Assessment Goals Three Impairment Pt completes two minute walk test ambulating 140' Workers' Compensation Claims Examiner Goal (LTG) Pt to tolerate a full 6MWT without an assistive device, ambulating >1000' in order to demonstrate return to prior gait function LTG Duration 01/30/24 - Improving /c SPC Two Impairment Right knee AROM limited 11?-57 ? Workers' Compensation Claims Examiner Goal (LTG) Pt to improve active knee ROM to 0?-120? 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 11/16/23: 0-88 deg AAROM flexion post manual and ther ex LTG Duration 01/30/24 progressing One Impairment Pt does not have an appropriate home exercise program Short Term Goal (STG) Pt to be independent and compliant with an appropriate HEP 4/: added mini squat, lateral stepping, heel toe gait. Heel slides use of strap foot on tball if beneficial and less pain. STG Duration 12/31/23 Assessment Summary Assessment AROM right knee lacking 3 deg extension to 105 deg flexion end of session. Quad lag with SLR persists. Patient transfers sit to stand with adequate knee flexion post training. Physical Therapy Plan Frequency and Duration Frequency of Treatment 2x/Week Plan of Care Start Date 11/30/23 Plan of Care End Date 01/30/24 Next Visit Focus/Plan Next Note Type Treatment Note Next Visit Plan Ortho appt Tue. Continue: progress R knee ROM and gait phase stepping unsupported. HEP review. Next initiate hurdles and sit/stands/wall squats POC:Knee ROM/strengthening, gait training
--- NOTE | 2023-12-19 14:32 | PT.OTN ---
Current Diagnoses Pain in right knee (12/19/23) Stiffness of right knee, not elsewhere classified (12/19/23) Other abnormalities of gait and mobility (12/19/23) Aftercare following joint replacement surgery (12/19/23) Presence of right artificial knee joint (12/19/23) Physical Therapy Treatment Note PT-OP-A Visit Information Start: 10/17/23 17:48 Freq: Status: Active Protocol: Document 12/19/23 13:45 DCW (Rec: 12/19/23 14:31 DCW [id number]) Out-Patient Physical Therapy Visit Information Visit Information Visit Type Treatment Note Visit Note 6 initial visits completed, 2nd set of 12 completed 08/08 visit 3rd set approved Visit Start Time 13:45 Visit Stop Time 14:35 Visit Number 19 Number of INSPECTOR BULLET SLUGS Visits 0 Evaluation Information Evaluation Date 10/17/23 PT-OP-B Current Condition Start: 10/17/23 17:48 Freq: Status: Active Protocol: Document 11/30/23 10:30 DCW (Rec: 11/30/23 11:16 DCW [id number]) Current Condition History of Current Condition Onset Date 10/10/23 Current Complaints Right knee pain and stiffness s/p R TKA History of Current Condition Pt is a 58 year old female presenting one week s/p right TKA. Pt notes biggest current limiting factor is pain. Feels post-op swelling and tightness is greatly restricting her mobility. Has been consistent so far with post-op HEP, including ankle pumps, heel slides, SAQ, LAQ, and knee flexion/extension stretches. Pt using FWW for gait, heavily using UEs for stability. Has been wearing compression stockings and icing regularly. ADDENDUM 11/30/23: Pt underwent REBEL on 11/27, instructed to continue with PT, no change in frequency. PT-OP-C Subjective Start: 10/17/23 17:48 Freq: Status: Active Protocol: Document 12/19/23 13:45 DCW (Rec: 12/19/23 14:31 DCW [id number]) OP-PT Subjective Patient Comments Patient Comments I'm seeing it evolve all the time. Notes she had a follow- up with her surgeon's PA, happy with current progress. PT-OP-E Functional Tests Start: 10/17/23 17:48 Freq: Status: Active Protocol: Document 12/15/23 15:24 AB (Rec: 12/15/23 16:37 AB [id number]) Functional Tests Timed Up and Go (TUG) Score 8.55 seconds without device Comments sit to stand with right knee in greater than 90 deg flexion PT-OP-G Mobility & Gait Start: 10/17/23 17:48 Freq: Status: Active Protocol: Document 10/17/23 13:45 DCW (Rec: 10/18/23 09:33 DCW [id number]) OP Gait Assessment Comments Gait Comments Ambulates with no right knee flexion, moderate right antalgia. Pt uses a step- through gait pattern and heavily relies on her UEs for support. Stair Climbing Evaluation Evaluation Level of Assist On Stairs Contact Guard Assistance Devices Stair Climbing Assistive Devices Left Railing,Right Railing Technique/Endurance Stair Climbing Direction Ascend and Descend Stair Climbing Technique Step to Step Number of Steps Climbed 4 PT-OP-K Range of Motion Start: 10/17/23 17:48 Freq: Status: Active Protocol: Document 12/15/23 15:24 AB (Rec: 12/15/23 16:39 AB [id number]) Knee Goniometric Range of Motion Knee Right Knee ROM WFL No Patient Position Supine Flexion Active (degrees) 105 Extension Active (degrees) 3 Comments lacking 3 deg extension, quad lag with SLR persists as well as decreased quad activation with quad set. PT-OP-M Strength Start: 10/17/23 17:48 Freq: Status: Active Protocol: Document 11/30/23 10:30 DCW (Rec: 11/30/23 10:48 DCW [id number]) Knee Strength Knee Manual Muscle Testing Right Flexion (S2) 3- Fair- Extension (L3) 3- Fair- PT-OP-Q Treatments Start: 10/17/23 17:48 Freq: Status: Active Protocol: Document 12/19/23 13:45 DCW (Rec: 12/19/23 14:31 DCW [id number]) Cardio Equipment Recumbent Bicycle Duration (Minutes) 6 Resistance 5 Seat Position 3 Gym Equipment Shuttle Recovery Bilateral Squats Details R knee 111? Resistance 75# (2 navy) Shuttle Recovery Platform Stable Shuttle Balance Red Details WBOS, Staggered, lateral Manual Therapy Treatment Joint Mobilizations Patellar Joint R Patella Direction Inferior<->Superior, med/lat, CW and CCW Grade IV Body Position Hooklying Comments R knee straight Right knee Joint R tibofemoral, prox fib Direction A<->P Grade III Body Position Hooklying Comments into various flexion ranges tolerant PT-OP-R Modalities Start: 10/28/23 10:30 Freq: Status: Active Protocol: Document 12/19/23 13:45 DCW (Rec: 12/19/23 14:31 DCW [id number]) Hot Pack/Cold Pack Treatment Cold Pack Location R knee Patient Position Hooklying Patient Tolerance Good Comments x10 min, moreira within reach PT-OP-T Assessment and Plan Start: 10/17/23 17:48 Freq: Status: Active Protocol: Document 12/19/23 13:45 DCW (Rec: 12/19/23 14:31 DCW [id number]) Physical Therapy Assessment Impairments Impairments Activity Tolerance,Functional Activities,Functional Mobility ,Gait,Integument,Pain,ROM,Soft Tissue Mobility,Strength, Transfers Goals Three Impairment Pt completes two minute walk test ambulating 140' Correction Goal (LTG) Pt to tolerate a full 6MWT without an assistive device, ambulating >1000' in order to demonstrate return to prior gait function LTG Duration 01/30/24 Two Impairment Right knee AROM limited 11?-57 ? Structural Drafter Goal (LTG) Pt to improve active knee ROM to 0?-120? in order to return to prior levels of function and allow pt to return to hobby of competitive [employer] skating 11/11/23: 4-86deg post manual and exercises. 11/16/23: 0-88 deg AAROM flexion post manual and ther ex LTG Duration 01/30/24 progressing One Impairment Pt does not have an appropriate home exercise program Short Term Goal (STG) Pt to be independent and compliant with an appropriate HEP 11/08-07/24: added mini squat, lateral stepping, heel toe gait. Heel slides use of strap foot on tball if beneficial and less pain. STG Duration 12/31/23 Assessment Summary Assessment Continues to show significant improvement s/p REBEL. Max flexion measures today at 112? with therapist overpressure. Pt has been improving with gait, largely ambulating AD- free. Currently scheduled to return to work early next month, considering extending leave for another few weeks. Physical Therapy Plan Frequency and Duration Frequency of Treatment 2x/Week Plan of Care Start Date 11/30/23 Plan of Care End Date 01/30/24 Therapeutic Interventions Therapeutic Interventions Balance Training,Gait Training ,Home Exercise Program,Joint Mobilizations,Manual Therapy, Neuromuscular Re-education, Patient/Caregiver Education, Self-Care/Home Management,Soft Tissue Mobilization,Taping, Therapeutic Activities, Therapeutic Exercises Modalities Cold Pack/Ice Massage,Electric Stimulation,Hot Packs, Ultrasound Next Visit Focus/Plan Next Note Type Treatment Note Next Visit Plan Continue: progress R knee ROM and gait phase stepping unsupported. HEP review. Next initiate hurdles and sit/ stands/wall squats POC:Knee ROM/strengthening, gait training
--- NOTE | 2023-12-22 14:15 | PT.OTN ---
Current Diagnoses Pain in right knee (12/22/23) Stiffness of right knee, not elsewhere classified (12/22/23) Other abnormalities of gait and mobility (12/22/23) Aftercare following joint replacement surgery (12/22/23) Presence of right artificial knee joint (12/22/23) Physical Therapy Treatment Note PT-OP-A Visit Information Start: 10/17/23 17:48 Freq: Status: Active Protocol: Document 12/22/23 13:04 SW (Rec: 12/22/23 14:15 SW [id number]) Out-Patient Physical Therapy Visit Information Visit Information Visit Type Treatment Note Visit Note 6 initial visits completed, 2nd set of 12 completed 2/8 visit 3rd set approved Visit Start Time 13:00 Visit Stop Time 13:50 Visit Number 20 Number of TAPE FOLDING MACHINE OPERATOR Visits 1 PT-OP-B Current Condition Start: 10/17/23 17:48 Freq: Status: Active Protocol: Document 11/30/23 10:30 DCW (Rec: 11/30/23 11:16 DCW [id number]) Current Condition History of Current Condition Onset Date 10/10/23 Current Complaints Right knee pain and stiffness s/p R TKA History of Current Condition Pt is a 58 year old female presenting one week s/p right TKA. Pt notes biggest current limiting factor is pain. Feels post-op swelling and tightness is greatly restricting her mobility. Has been consistent so far with post-op HEP, including ankle pumps, heel slides, SAQ, LAQ, and knee flexion/extension stretches. Pt using FWW for gait, heavily using UEs for stability. Has been wearing compression stockings and icing regularly. ADDENDUM 11/30/23: Pt underwent REBEL on 11/27, instructed to continue with PT, no change in frequency. PT-OP-C Subjective Start: 10/17/23 17:48 Freq: Status: Active Protocol: Document 12/22/23 13:04 SW (Rec: 12/22/23 14:13 SW [id number]) OP-PT Subjective Patient Comments Patient Comments Pt reports feeling pretty good today, walked a little too far yesterday and was feeling it. PT-OP-E Functional Tests Start: 10/17/23 17:48 Freq: Status: Active Protocol: Document 12/15/23 15:24 AB (Rec: 12/15/23 16:37 AB [id number]) Functional Tests Timed Up and Go (TUG) Score 8.55 seconds without device Comments sit to stand with right knee in greater than 90 deg flexion PT-OP-G Mobility & Gait Start: 10/17/23 17:48 Freq: Status: Active Protocol: Document 10/17/23 13:45 DCW (Rec: 10/18/23 09:33 DCW [id number]) OP Gait Assessment Comments Gait Comments Ambulates with no right knee flexion, moderate right antalgia. Pt uses a step- through gait pattern and heavily relies on her UEs for support. Stair Climbing Evaluation Evaluation Level of Assist On Stairs Contact Guard Assistance Devices Stair Climbing Assistive Devices Left Railing,Right Railing Technique/Endurance Stair Climbing Direction Ascend and Descend Stair Climbing Technique Step to Step Number of Steps Climbed 4 PT-OP-K Range of Motion Start: 10/17/23 17:48 Freq: Status: Active Protocol: Document 12/15/23 15:24 AB (Rec: 12/15/23 16:39 AB [id number]) Knee Goniometric Range of Motion Knee Right Knee ROM WFL No Patient Position Supine Flexion Active (degrees) 105 Extension Active (degrees) 3 Comments lacking 3 deg extension, quad lag with SLR persists as well as decreased quad activation with quad set. PT-OP-M Strength Start: 10/17/23 17:48 Freq: Status: Active Protocol: Document 11/30/23 10:30 DCW (Rec: 11/30/23 10:48 DCW [id number]) Knee Strength Knee Manual Muscle Testing Right Flexion (S2) 3- Fair- Extension (L3) 3- Fair- PT-OP-Q Treatments Start: 10/17/23 17:48 Freq: Status: Active Protocol: Document 12/22/23 13:04 SW (Rec: 12/22/23 14:13 SW [id number]) Cardio Equipment Recumbent Bicycle Duration (Minutes) 6 Resistance 5 Seat Position 3 Gym Equipment Shuttle Recovery Bilateral Squats Details R knee 112 Resistance 75# (2 navy) Shuttle Recovery Platform Stable Shuttle Balance Red Details WBOS, Staggered, lateral Comments cues for initial positioning Therapeutic Exercises Supine Exercises SLR Side right Reps/Minutes X10 Comments Verbal cues to quad set and hold the knee straight throughout SLR hamstring stretch Supine Exercise Name from hooklying Side right Reps/Minutes 60 seconds X 2 heel slides Supine Exercise Name AROM Side right Reps/Minutes X10 Comments post stretches Wall slides Supine Exercise Name Wall slides into flexion stretch Side right Resistance with over pressure Reps/Minutes 8 min Comments VC to slide LE down further every few minutes Standing Exercises wall squat Standing Exercise Name Wall squat Side bilateral Resistance AROM Reps/Minutes x10 Comments cues for knees not to exceed toes mini squat Standing Exercise Name STS > partial squat, pain free depth Equipment Used mesh chair, @ rail Reps/Minutes x5 at chair x 10 @ rail Comments cued hip hinge, core stabilization PT-OP-R Modalities Start: 10/28/23 10:30 Freq: Status: Active Protocol: Document 12/22/23 13:04 (Rec: 12/22/23 14:13 [id number]) Hot Pack/Cold Pack Treatment Cold Pack Location R knee Patient Position Hooklying Patient Tolerance Good Comments x10 min, moreira within reach PT-OP-T Assessment and Plan Start: 10/17/23 17:48 Freq: Status: Active Protocol: Document 12/22/23 13:04 (Rec: 12/22/23 14:13 [id number]) Physical Therapy Assessment Goals Three Impairment Pt completes two minute walk test ambulating 140' Head Sampler Goal (LTG) Pt to tolerate a full 6MWT without an assistive device, ambulating >1000' in order to demonstrate return to prior gait function LTG Duration 01/30/24 Two Impairment Right knee AROM limited 11?-57 ? Penitentiary Goal (LTG) Pt to improve active knee ROM to 0?-120? in order to return to prior levels of function and allow pt to return to hobby of competitive [employer] skating 11/11/23: 4-86deg post manual and exercises. 11/16/23: 0-88 deg AAROM flexion post manual and ther ex LTG Duration 01/30/24 progressing One Impairment Pt does not have an appropriate home exercise program Short Term Goal (STG) Pt to be independent and compliant with an appropriate HEP 11/08-07/24: added mini squat, lateral stepping, heel toe gait. Heel slides use of strap foot on tball if beneficial and less pain. STG Duration 12/31/23 Assessment Summary Assessment Patient ambulated into session w/out AD and decreased antalgic gait. Overall pt tolerated session well. Progressed pt with inititation of squats s/p REBEL, stayed within pain free range today, cued pt for core stabilization and mechanics. Trialed wall squat, good pt feedback, denies pain, cues for LE alignment and keeping knees from translating in front of toes, pt able to gradually increase depth with increased reps, issued HEP HO. Pt measured 113 deg w/ overpressure this session. Physical Therapy Plan Frequency and Duration Frequency of Treatment 2x/Week Plan of Care Start Date 11/30/23 Plan of Care End Date 01/30/24 Therapeutic Interventions Therapeutic Interventions Balance Training,Gait Training ,Home Exercise Program,Joint Mobilizations,Manual Therapy, Neuromuscular Re-education, Patient/Caregiver Education, Self-Care/Home Management,Soft Tissue Mobilization,Taping, Therapeutic Activities, Therapeutic Exercises Modalities Cold Pack/Ice Massage,Electric Stimulation,Hot Packs, Ultrasound Next Visit Focus/Plan Next Note Type Treatment Note Next Visit Plan Continue: progress R knee ROM and gait phase stepping unsupported. HEP review. Next initiate hurdles and sit/ stands/wall squats POC:Knee ROM/strengthening, gait training
--- NOTE | 2023-12-27 16:13 | PT.OTN ---
Current Diagnoses Pain in right knee (12/27/23) Stiffness of right knee, not elsewhere classified (12/27/23) Other abnormalities of gait and mobility (12/27/23) Aftercare following joint replacement surgery (12/27/23) Presence of right artificial knee joint (12/27/23) Physical Therapy Treatment Note PT-OP-A Visit Information Start: 10/17/23 17:48 Freq: Status: Active Protocol: Document 12/27/23 12:55 AB (Rec: 12/27/23 16:13 AB [id number]) Out-Patient Physical Therapy Visit Information Visit Information Visit Type Treatment Note Visit Note 6 initial visits completed, 2nd set of 12 completed 10/06 visit 3rd set approved Visit Start Time 13:03 Visit Stop Time 13:57 Visit Number 21 Number of COURSEWARE DEVELOPER Visits 2 Evaluation Information Evaluation Date 10/17/23 PT-OP-B Current Condition Start: 10/17/23 17:48 Freq: Status: Active Protocol: Document 11/30/23 10:30 DCW (Rec: 11/30/23 11:16 DCW [id number]) Current Condition History of Current Condition Onset Date 10/10/23 Current Complaints Right knee pain and stiffness s/p R TKA History of Current Condition Pt is a 58 year old female presenting one week s/p right TKA. Pt notes biggest current limiting factor is pain. Feels post-op swelling and tightness is greatly restricting her mobility. Has been consistent so far with post-op HEP, including ankle pumps, heel slides, SAQ, LAQ, and knee flexion/extension stretches. Pt using FWW for gait, heavily using UEs for stability. Has been wearing compression stockings and icing regularly. ADDENDUM 11/30/23: Pt underwent REBEL on 11/27, instructed to continue with PT, no change in frequency. PT-OP-C Subjective Start: 10/17/23 17:48 Freq: Status: Active Protocol: Document 12/27/23 12:55 AB (Rec: 12/27/23 16:13 AB [id number]) OP-PT Subjective Patient Comments Patient Comments Patient reports the knee slowly but surely feels like it is bending more. Patient reports she is walking short distances out of the home without device. AROM right knee 0 to 103 deg start of session. PT-OP-E Functional Tests Start: 10/17/23 17:48 Freq: Status: Active Protocol: Document 12/15/23 15:24 AB (Rec: 12/15/23 16:37 AB [id number]) Functional Tests Timed Up and Go (TUG) Score 8.55 seconds without device Comments sit to stand with right knee in greater than 90 deg flexion PT-OP-G Mobility & Gait Start: 10/17/23 17:48 Freq: Status: Active Protocol: Document 10/17/23 13:45 DCW (Rec: 10/18/23 09:33 DCW [id number]) OP Gait Assessment Comments Gait Comments Ambulates with no right knee flexion, moderate right antalgia. Pt uses a step- through gait pattern and heavily relies on her UEs for support. Stair Climbing Evaluation Evaluation Level of Assist On Stairs Contact Guard Assistance Devices Stair Climbing Assistive Devices Left Railing,Right Railing Technique/Endurance Stair Climbing Direction Ascend and Descend Stair Climbing Technique Step to Step Number of Steps Climbed 4 PT-OP-K Range of Motion Start: 10/17/23 17:48 Freq: Status: Active Protocol: Document 12/15/23 15:24 AB (Rec: 12/15/23 16:39 AB [id number]) Knee Goniometric Range of Motion Knee Right Knee ROM WFL No Patient Position Supine Flexion Active (degrees) 105 Extension Active (degrees) 3 Comments lacking 3 deg extension, quad lag with SLR persists as well as decreased quad activation with quad set. PT-OP-M Strength Start: 10/17/23 17:48 Freq: Status: Active Protocol: Document 11/30/23 10:30 DCW (Rec: 11/30/23 10:48 DCW [id number]) Knee Strength Knee Manual Muscle Testing Right Flexion (S2) 3- Fair- Extension (L3) 3- Fair- PT-OP-Q Treatments Start: 10/17/23 17:48 Freq: Status: Active Protocol: Document 12/27/23 12:55 AB (Rec: 12/27/23 16:13 AB [id number]) Therapeutic Exercises Supine Exercises heel slides Supine Exercise Name AROM Side right Reps/Minutes X10 X2 Comments post stretches Prone Exercises Prone knee flexion AROM Side right Reps/Minutes X10 Comments verbal cues Standing Exercises wall squat Standing Exercise Name Wall squat with ball Side bilateral Resistance AROM Reps/Minutes x10 X2 Comments cues for knees not to exceed toes Manual Therapy Treatment Soft Tissue Mobilization scar mobility Body Location R knee quad , peripatellar area, lat and med knee Mobilization Type Cross-Friction Intensity/Depth Moderate Body Position Supine Joint Mobilizations Patellar Joint R Patella Direction Inferior<->Superior, med/lat, CW and CCW Grade IV Body Position Hooklying Comments R knee straight Manual Techniques PROM Type contract relax Body Location right knee Body Position Prone Reps/Duration one minute into flexion X 3 Comments the X2 Modified Brayan test one min hold X 2 Neuro Re-Education Treatment Balance Activities SLS on foam Reps/Duration X10 right LE CGA hurdles Details fwd, Equipment 1 rail, 6 hurdles Reps/Duration 6 laps Comments VC to avoid circumduction PT-OP-R Modalities Start: 10/28/23 10:30 Freq: Status: Active Protocol: Document 12/27/23 12:55 AB (Rec: 12/27/23 16:13 AB [id number]) Hot Pack/Cold Pack Treatment Cold Pack Location R knee Patient Position Hooklying Patient Tolerance Good Comments x10 min, moreira within reach PT-OP-T Assessment and Plan Start: 10/17/23 17:48 Freq: Status: Active Protocol: Document 12/27/23 12:55 AB (Rec: 12/27/23 16:13 AB [id number]) Physical Therapy Assessment Goals Three Impairment Pt completes two minute walk test ambulating 140' F[facility] Goal (LTG) Pt to tolerate a full 6MWT without an assistive device, ambulating >1000' in order to demonstrate return to prior gait function LTG Duration 01/30/24 Two Impairment Right knee AROM limited 11?-57 ? Supervisor [employer] Goal (LTG) Pt to improve active knee ROM to 0?-120? 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 11/16/23: 0-88 deg AAROM flexion post manual and ther ex LTG Duration 01/30/24 progressing One Impairment Pt does not have an appropriate home exercise program Short Term Goal (STG) Pt to be independent and compliant with an appropriate HEP 11/08-07/24: added mini squat, lateral stepping, heel toe gait. Heel slides use of strap foot on tball if beneficial and less pain. STG Duration 12/31/23 Assessment Summary Assessment 114 deg AROM right knee flexion, post manual therapy and exercise. Patient reports feeling better end of session. Physical Therapy Plan Frequency and Duration Frequency of Treatment 2x/Week Plan of Care Start Date 11/30/23 Plan of Care End Date 01/30/24 Next Visit Focus/Plan Next Note Type Treatment Note Next Visit Plan Continue: progress R knee ROM and gait phase stepping unsupported. HEP review. Next continue with hurdles and sit/ stands/wall squats POC:Knee ROM/strengthening, gait training
--- NOTE | 2023-12-29 14:29 | PT.OTN ---
Current Diagnoses Pain in right knee (12/29/23) Stiffness of right knee, not elsewhere classified (12/29/23) Other abnormalities of gait and mobility (12/29/23) Aftercare following joint replacement surgery (12/29/23) Presence of right artificial knee joint (12/29/23) Physical Therapy Treatment Note PT-OP-A Visit Information Start: 10/17/23 17:48 Freq: Status: Active Protocol: Document 12/29/23 13:45 DCW (Rec: 12/29/23 14:29 DCW [id number]) Out-Patient Physical Therapy Visit Information Visit Information Visit Type Treatment Note Visit Note 6 initial visits completed, 2nd set of 12 completed 11/06 visit 3rd set approved Visit Start Time 13:45 Visit Stop Time 14:35 Visit Number 22 Number of MANAGER IMPLEMENTATION Visits 0 Evaluation Information Evaluation Date 10/17/23 PT-OP-B Current Condition Start: 10/17/23 17:48 Freq: Status: Active Protocol: Document 11/30/23 10:30 DCW (Rec: 11/30/23 11:16 DCW [id number]) Current Condition History of Current Condition Onset Date 10/10/23 Current Complaints Right knee pain and stiffness s/p R TKA History of Current Condition Pt is a 58 year old female presenting one week s/p right TKA. Pt notes biggest current limiting factor is pain. Feels post-op swelling and tightness is greatly restricting her mobility. Has been consistent so far with post-op HEP, including ankle pumps, heel slides, SAQ, LAQ, and knee flexion/extension stretches. Pt using FWW for gait, heavily using UEs for stability. Has been wearing compression stockings and icing regularly. ADDENDUM 11/30/23: Pt underwent REBEL on 11/27, instructed to continue with PT, no change in frequency. PT-OP-C Subjective Start: 10/17/23 17:48 Freq: Status: Active Protocol: Document 12/29/23 13:45 DCW (Rec: 12/29/23 14:29 DCW [id number]) OP-PT Subjective Patient Comments Patient Comments Continues to feel like she is making improvements. PT-OP-E Functional Tests Start: 10/17/23 17:48 Freq: Status: Active Protocol: Document 12/15/23 15:24 AB (Rec: 12/15/23 16:37 AB [id number]) Functional Tests Timed Up and Go (TUG) Score 8.55 seconds without device Comments sit to stand with right knee in greater than 90 deg flexion PT-OP-G Mobility & Gait Start: 10/17/23 17:48 Freq: Status: Active Protocol: Document 10/17/23 13:45 DCW (Rec: 10/18/23 09:33 DCW [id number]) OP Gait Assessment Comments Gait Comments Ambulates with no right knee flexion, moderate right antalgia. Pt uses a step- through gait pattern and heavily relies on her UEs for support. Stair Climbing Evaluation Evaluation Level of Assist On Stairs Contact Guard Assistance Devices Stair Climbing Assistive Devices Left Railing,Right Railing Technique/Endurance Stair Climbing Direction Ascend and Descend Stair Climbing Technique Step to Step Number of Steps Climbed 4 PT-OP-K Range of Motion Start: 10/17/23 17:48 Freq: Status: Active Protocol: Document 12/15/23 15:24 AB (Rec: 12/15/23 16:39 AB [id number]) Knee Goniometric Range of Motion Knee Right Knee ROM WFL No Patient Position Supine Flexion Active (degrees) 105 Extension Active (degrees) 3 Comments lacking 3 deg extension, quad lag with SLR persists as well as decreased quad activation with quad set. PT-OP-M Strength Start: 10/17/23 17:48 Freq: Status: Active Protocol: Document 11/30/23 10:30 DCW (Rec: 11/30/23 10:48 DCW [id number]) Knee Strength Knee Manual Muscle Testing Right Flexion (S2) 3- Fair- Extension (L3) 3- Fair- PT-OP-Q Treatments Start: 10/17/23 17:48 Freq: Status: Active Protocol: Document 12/29/23 13:45 DCW (Rec: 12/29/23 14:29 DCW [id number]) Cardio Equipment Recumbent Bicycle Duration (Minutes) 6 Resistance 5 Seat Position 3 Gym Equipment Shuttle Recovery Bilateral Squats Details R knee 119? Resistance 75# (2 navy) Shuttle Recovery Platform Stable Therapeutic Exercises Supine Exercises heel slides Supine Exercise Name AROM Side right Comments 110? flexion Sitting Exercises Hamstring Curl Sitting Exercise Name Hamstring Curl Side right Resistance Lv 3 Self-Care/Home Management Treatment Education Patient Education Home Exercise Program Other Education Review, additon, and streamlining of pt's current HEP PT-OP-R Modalities Start: 10/28/23 10:30 Freq: Status: Active Protocol: Document 12/29/23 13:45 DCW (Rec: 12/29/23 14:29 DCW [id number]) Hot Pack/Cold Pack Treatment Cold Pack Location R knee Patient Position Hooklying Patient Tolerance Good Comments x10 min, moreira within reach PT-OP-T Assessment and Plan Start: 10/17/23 17:48 Freq: Status: Active Protocol: Document 12/29/23 13:45 DCW (Rec: 12/29/23 14:29 DCW [id number]) Physical Therapy Assessment Goals Three Impairment Pt completes two minute walk test ambulating 140' Manager Hematology Goal (LTG) Pt to tolerate a full 6MWT without an assistive device, ambulating >1000' in order to demonstrate return to prior gait function LTG Duration 01/30/24 Two Impairment Right knee AROM limited 11?-57 ? Manager Hematology Goal (LTG) Pt to improve active knee ROM to 0?-120? in order to return to prior levels of function and allow pt to return to hobby of competitive [employer] skating 11/11/23: 4-86deg post manual and exercises. 11/16/23: 0-88 deg AAROM flexion post manual and ther ex LTG Duration 01/30/24 progressing One Impairment Pt does not have an appropriate home exercise program Short Term Goal (STG) Pt to be independent and compliant with an appropriate HEP 11/08-07/24: added mini squat, lateral stepping, heel toe gait. Heel slides use of strap foot on tball if beneficial and less pain. STG Duration 12/31/23 Assessment Summary Assessment Reached 119? PROM on leg press today, still lacking a bit more with active, measured today at 111?. Spent additional time today streamlining HEP, as well as adding hamstring curls. Continue to focus on improving knee flexion and improving functional mobility. Physical Therapy Plan Frequency and Duration Frequency of Treatment 2x/Week Plan of Care Start Date 11/30/23 Plan of Care End Date 01/30/24 Therapeutic Interventions Therapeutic Interventions Balance Training,Gait Training ,Home Exercise Program,Joint Mobilizations,Manual Therapy, Neuromuscular Re-education, Patient/Caregiver Education, Self-Care/Home Management,Soft Tissue Mobilization,Taping, Therapeutic Activities, Therapeutic Exercises Modalities Cold Pack/Ice Massage,Electric Stimulation,Hot Packs, Ultrasound Next Visit Focus/Plan Next Note Type Treatment Note Next Visit Plan Continue: progress R knee ROM and gait phase stepping unsupported. HEP review. Next initiate hurdles and sit/ stands/wall squats POC:Knee ROM/strengthening, gait training
--- NOTE | 2024-01-03 11:57 | PT.OTN ---
Current Diagnoses Pain in right knee (01/03/24) Stiffness of right knee, not elsewhere classified (01/03/24) Other abnormalities of gait and mobility (01/03/24) Aftercare following joint replacement surgery (01/03/24) Presence of right artificial knee joint (01/03/24) Physical Therapy Treatment Note PT-OP-A Visit Information Start: 10/17/23 17:48 Freq: Status: Active Protocol: Document 01/03/24 11:17 SP (Rec: 01/04/24 15:50 SP [id number]) Out-Patient Physical Therapy Visit Information Visit Information Visit Type Treatment Note Visit Note 6 initial visits completed, 2nd set of 12 completed 11/06 visit 3rd set approved Visit Start Time 11:17 Visit Stop Time 11:57 Visit Number 23 Number of SET UP MACHINIST Visits 1 Evaluation Information Evaluation Date 10/17/23 PT-OP-B Current Condition Start: 10/17/23 17:48 Freq: Status: Active Protocol: Document 11/30/23 10:30 DCW (Rec: 11/30/23 11:16 DCW [id number]) Current Condition History of Current Condition Onset Date 10/10/23 Current Complaints Right knee pain and stiffness s/p R TKA History of Current Condition Pt is a 58 year old female presenting one week s/p right TKA. Pt notes biggest current limiting factor is pain. Feels post-op swelling and tightness is greatly restricting her mobility. Has been consistent so far with post-op HEP, including ankle pumps, heel slides, SAQ, LAQ, and knee flexion/extension stretches. Pt using FWW for gait, heavily using UEs for stability. Has been wearing compression stockings and icing regularly. ADDENDUM 11/30/23: Pt underwent REBEL on 11/27, instructed to continue with PT, no change in frequency. PT-OP-C Subjective Start: 10/17/23 17:48 Freq: Status: Active Protocol: Document 01/03/24 11:17 SP (Rec: 01/04/24 15:50 SP [id number]) OP-PT Subjective Patient Comments Patient Comments Pt arrives carrying SPC, compliant with HEP, reports making slow gains in R knee ROM, getting closer to goal of 120 deg. PT-OP-E Functional Tests Start: 10/17/23 17:48 Freq: Status: Active Protocol: Document 12/15/23 15:24 AB (Rec: 12/15/23 16:37 AB [id number]) Functional Tests Timed Up and Go (TUG) Score 8.55 seconds without device Comments sit to stand with right knee in greater than 90 deg flexion PT-OP-G Mobility & Gait Start: 10/17/23 17:48 Freq: Status: Active Protocol: Document 10/17/23 13:45 DCW (Rec: 10/18/23 09:33 DCW [id number]) OP Gait Assessment Comments Gait Comments Ambulates with no right knee flexion, moderate right antalgia. Pt uses a step- through gait pattern and heavily relies on her UEs for support. Stair Climbing Evaluation Evaluation Level of Assist On Stairs Contact Guard Assistance Devices Stair Climbing Assistive Devices Left Railing,Right Railing Technique/Endurance Stair Climbing Direction Ascend and Descend Stair Climbing Technique Step to Step Number of Steps Climbed 4 PT-OP-K Range of Motion Start: 10/17/23 17:48 Freq: Status: Active Protocol: Document 12/15/23 15:24 AB (Rec: 12/15/23 16:39 AB [id number]) Knee Goniometric Range of Motion Knee Right Knee ROM WFL No Patient Position Supine Flexion Active (degrees) 105 Extension Active (degrees) 3 Comments lacking 3 deg extension, quad lag with SLR persists as well as decreased quad activation with quad set. PT-OP-M Strength Start: 10/17/23 17:48 Freq: Status: Active Protocol: Document 11/30/23 10:30 DCW (Rec: 11/30/23 10:48 DCW [id number]) Knee Strength Knee Manual Muscle Testing Right Flexion (S2) 3- Fair- Extension (L3) 3- Fair- PT-OP-Q Treatments Start: 10/17/23 17:48 Freq: Status: Active Protocol: Document 01/03/24 11:17 SP (Rec: 01/04/24 15:50 SP [id number]) Cardio Equipment Recumbent Bicycle Duration (Minutes) 6 Resistance 5 Seat Position 3 Gym Equipment Shuttle Recovery Bilateral Squats Details R knee 121? Resistance 75# (2 navy) Shuttle Recovery Platform Stable Therapeutic Exercises Supine Exercises heel slides Supine Exercise Name AROM Side right Comments 122? flexion post manual Prone Exercises AAROM knee flexion Prone Exercise Name added to HEP- declined HO Side right Resistance AAROM- 112deg (tape measure greater tronchanter to lat malleolus 17inches) Equipment Used strap on ankle Reps/Minutes 10 SH Comments cued hip toward table Prone knee flexion AROM Prone Exercise Name added to HEP- declined HO Side right Resistance AROM- 110 deg Reps/Minutes 5 SHx10 Comments verbal cues cued hip toward table Sitting Exercises Hamstring Curl Sitting Exercise Name Hamstring Curl Side right Resistance Lv 3 Reps/Minutes 2x10 Comments cued eccentric control Standing Exercises wall squat Standing Exercise Name Wall squat with ball Side bilateral Resistance AROM Reps/Minutes 10x2 Comments cues for knees with behind forefoot Gastroc/soleus stretch Standing Exercise Name Gastroc/soleus stretch Side bilateral Equipment Used bottom step Reps/Minutes 2 x 30 ea Comments good feedback with soleus stretch Gait Training Gait Activity no AD Description gait phases in mirror Device Used 0 Distance/Duration 20 ft x4 laps Treatment Focus normalize gait phases on R LE. Comments Cued equal stance/cadance time , level pelvis, heel toe RLE- improved almost normal when focuses. Manual Therapy Treatment Soft Tissue Mobilization R leg Body Location R quad, ITB, HS, Mobilization Type Cross-Friction,Rolling Intensity/Depth Moderate Body Position Hooklying Comments manual, Pt ed to perform prior to exercise seated. Neuro Re-Education Treatment Balance Activities hurdles Details fwd and lateral Equipment 6 hurdles Reps/Duration 6 laps Comments VC KTC to allow foot clearance . PT-OP-R Modalities Start: 10/28/23 10:30 Freq: Status: Active Protocol: Document 12/29/23 13:45 DCW (Rec: 12/29/23 14:29 DCW [id number]) Hot Pack/Cold Pack Treatment Cold Pack Location R knee Patient Position Hooklying Patient Tolerance Good Comments x10 min, moreira within reach PT-OP-T Assessment and Plan Start: 10/17/23 17:48 Freq: Status: Active Protocol: Document 01/03/24 11:17 SP (Rec: 01/04/24 15:50 SP [id number]) Physical Therapy Assessment Goals Three Impairment Pt completes two minute walk test ambulating 140' Longterm Goal (LTG) Pt to tolerate a full 6MWT without an assistive device, ambulating >1000' in order to demonstrate return to prior gait function LTG Duration 01/30/24 Two Impairment Right knee AROM limited 11?-57 ? Hydrometeorology Teacher Goal (LTG) Pt to improve active knee ROM to 0?-120? 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 11/16/23: 0-88 deg AAROM flexion post manual and ther ex 01/03/24: GOAL MET: 0- 122deg AROM post exercise and manual. LTG Duration 01/30/24 GOAL MET 01/03/24 One Impairment Pt does not have an appropriate home exercise program Short Term Goal (STG) Pt to be independent and compliant with an appropriate HEP 11/08-07/24: added mini squat, lateral stepping, heel toe gait. Heel slides use of strap foot on tball if beneficial and less pain. 01/03/24: added prone hs curl and AAROM use strap R knee flexion. STG Duration 12/31/23 progressing 01/03/24 Progress Towards Goals Progress Towards Goals Progressing Toward Goals Progress Comments MET GOAL #2 R knee AROM 0-122 deg by end of tx post ther ex and manual. Assessment Summary Assessment Pt responded well to manual and ther ex supportive progressed R knee AROM to 122 deg by end of tx. Pt improved gait phases and almost equal gonzalo RLE=L with cues and use mirror for self feedback corrections. Physical Therapy Plan Frequency and Duration Frequency of Treatment 2x/Week Plan of Care Start Date 11/30/23 Plan of Care End Date 01/30/24 Therapeutic Interventions Therapeutic Interventions Balance Training,Gait Training ,Home Exercise Program,Joint Mobilizations,Manual Therapy, Neuromuscular Re-education, Patient/Caregiver Education, Self-Care/Home Management,Soft Tissue Mobilization,Taping, Therapeutic Activities, Therapeutic Exercises Modalities Cold Pack/Ice Massage,Electric Stimulation,Hot Packs, Ultrasound Next Visit Focus/Plan Next Note Type Treatment Note Next Visit Plan Assess 6MWT and AROM pre/post ther ex. POC: Continue to progress R knee ROM and even gonzalo gait phase walking. HEP review. Incorporated uneven balance activities, SLS strengthening. POC:Knee ROM/strengthening, gait training
--- NOTE | 2024-01-06 12:09 | PT.OTN ---
Current Diagnoses Pain in right knee (01/06/24) Stiffness of right knee, not elsewhere classified (01/06/24) Other abnormalities of gait and mobility (01/06/24) Aftercare following joint replacement surgery (01/06/24) Presence of right artificial knee joint (01/06/24) Physical Therapy Treatment Note PT-OP-A Visit Information Start: 10/17/23 17:48 Freq: Status: Active Protocol: Document 01/06/24 11:22 SP (Rec: 01/06/24 12:32 SP [id number]) Out-Patient Physical Therapy Visit Information Visit Information Visit Type Treatment Note Visit Note 6 initial visits completed, 2nd set of 12 completed 6/8 visit 3rd set approved Visit Start Time 11:17 Visit Stop Time 12:09 Visit Number 24 Number of SENIOR ENVIRONMENTAL SCIENTIST Visits 2 Evaluation Information Evaluation Date 10/17/23 PT-OP-B Current Condition Start: 10/17/23 17:48 Freq: Status: Active Protocol: Document 11/30/23 10:30 DCW (Rec: 11/30/23 11:16 DCW [id number]) Current Condition History of Current Condition Onset Date 10/10/23 Current Complaints Right knee pain and stiffness s/p R TKA History of Current Condition Pt is a 58 year old female presenting one week s/p right TKA. Pt notes biggest current limiting factor is pain. Feels post-op swelling and tightness is greatly restricting her mobility. Has been consistent so far with post-op HEP, including ankle pumps, heel slides, SAQ, LAQ, and knee flexion/extension stretches. Pt using FWW for gait, heavily using UEs for stability. Has been wearing compression stockings and icing regularly. ADDENDUM 11/30/23: Pt underwent REBEL on 11/27, instructed to continue with PT, no change in frequency. PT-OP-C Subjective Start: 10/17/23 17:48 Freq: Status: Active Protocol: Document 01/06/24 11:22 SP (Rec: 01/06/24 12:32 SP [id number]) OP-PT Subjective Patient Comments Patient Comments Pt reports was little sore after last tx. PT-OP-E Functional Tests Start: 10/17/23 17:48 Freq: Status: Active Protocol: Document 12/15/23 15:24 AB (Rec: 12/15/23 16:37 AB [id number]) Functional Tests Timed Up and Go (TUG) Score 8.55 seconds without device Comments sit to stand with right knee in greater than 90 deg flexion PT-OP-G Mobility & Gait Start: 10/17/23 17:48 Freq: Status: Active Protocol: Document 10/17/23 13:45 DCW (Rec: 10/18/23 09:33 DCW [id number]) OP Gait Assessment Comments Gait Comments Ambulates with no right knee flexion, moderate right antalgia. Pt uses a step- through gait pattern and heavily relies on her UEs for support. Stair Climbing Evaluation Evaluation Level of Assist On Stairs Contact Guard Assistance Devices Stair Climbing Assistive Devices Left Railing,Right Railing Technique/Endurance Stair Climbing Direction Ascend and Descend Stair Climbing Technique Step to Step Number of Steps Climbed 4 PT-OP-K Range of Motion Start: 10/17/23 17:48 Freq: Status: Active Protocol: Document 12/15/23 15:24 AB (Rec: 12/15/23 16:39 AB [id number]) Knee Goniometric Range of Motion Knee Right Knee ROM WFL No Patient Position Supine Flexion Active (degrees) 105 Extension Active (degrees) 3 Comments lacking 3 deg extension, quad lag with SLR persists as well as decreased quad activation with quad set. PT-OP-M Strength Start: 10/17/23 17:48 Freq: Status: Active Protocol: Document 11/30/23 10:30 DCW (Rec: 11/30/23 10:48 DCW [id number]) Knee Strength Knee Manual Muscle Testing Right Flexion (S2) 3- Fair- Extension (L3) 3- Fair- PT-OP-Q Treatments Start: 10/17/23 17:48 Freq: Status: Active Protocol: Document 01/06/24 11:22 SP (Rec: 01/06/24 12:32 SP [id number]) Cardio Equipment Recumbent Bicycle Duration (Minutes) 11 Resistance 5 Seat Position 3>1 Other 2.93 miles, Therapeutic Exercises Supine Exercises heel slides Supine Exercise Name AROM, can add toe raises end range Side right Reps/Minutes discussed AROM before get out bed Comments 125? flexion post manual Sitting Exercises Hamstring Curl Sitting Exercise Name Hamstring Curl- 1. isometric 2 . flex/ecc ext Side right Resistance 1. Lv 2 around ankles 2. #3 achored door Reps/Minutes 1. 10 SH x10 2. not performed / Comments good mid/distal above knee tiring LAQ Sitting Exercise Name trialed in PT Side right Resistance TB #2 Equipment Used off side plinth Reps/Minutes 5 reps, then post CP for ROM Comments decrease lag with reps, not measured lacking ROM. Other Exercises knee flexion mobility Other Exercise Name DIscussed is performing on own Side right Equipment Used 2nd step, rail support Reps/Minutes x10 Comments knee flexion AAROM as needed for stiffness reduction and increase ROM Therapeutic Activity Therapeutic Activity Stationary lunge Name added to HEP- support getting items off floor 1/2 kneel at work Reps/Minutes 5 reps each LE Comments cued R knee alignment front/ back position 90/90 squat Name added to HEP Reps/Minutes 5 reps Comments hip hinge, deeper squat crop picker item, knee behind toes and equal WB BLE (occ pelvis shift off to L) - pnfree reported but feel tension quad above R knee PT-OP-R Modalities Start: 10/28/23 10:30 Freq: Status: Active Protocol: Document 01/06/24 11:22 SP (Rec: 01/06/24 12:32 SP [id number]) Hot Pack/Cold Pack Treatment Cold Pack Location R knee Patient Position Hooklying Patient Tolerance Good Comments x10 min, moreira within reach PT-OP-T Assessment and Plan Start: 10/17/23 17:48 Freq: Status: Active Protocol: Document 01/06/24 11:22 SP (Rec: 01/06/24 12:32 SP [id number]) Physical Therapy Assessment Goals Three Impairment Pt completes two minute walk test ambulating 140' Watch Supervisor Goal (LTG) Pt to tolerate a full 6MWT without an assistive device, ambulating >1000' in order to demonstrate return to prior gait function LTG Duration 01/30/24 Two Impairment Right knee AROM limited 11?-57 ? Mcfp Goal (LTG) Pt to improve active knee ROM to 0?-120? 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 11/16/23: 0-88 deg AAROM flexion post manual and ther ex 01/03/24: GOAL MET: 0- 122deg AROM post exercise and manual. 01/06/24: progressed 0-125deg AROM post manual& ex. LTG Duration 01/30/24 GOAL MET 01/03/24, continued progression ROM 01/05 One Impairment Pt does not have an appropriate home exercise program Short Term Goal (STG) Pt to be independent and compliant with an appropriate HEP 11/08-07/24: added mini squat, lateral stepping, heel toe gait. Heel slides use of strap foot on tball if beneficial and less pain. 01/03/24: added prone hs curl and AAROM use strap R knee flexion. STG Duration 12/31/23 progressing 01/03/24 Assessment Summary Assessment Pt continues to make gains in R knee AROM 0-125 deg post manual. Pt reports her quad feels weak. Tx ther ex focused on R quad and HS strengthening using theraband resistance to support stability of R knee during functional activities while allowing to be portable so may incorporated when return to work. Pt reports no R knee pain just tiring tension at distal to mid quad above knee especially when hold contraction and squat and lunge AROM to allow her to get items off the floor needed when return to work. Pt requested use of CP for R knee end tx for prevention and recovery soreness post tx. Physical Therapy Plan Frequency and Duration Frequency of Treatment 2x/Week Plan of Care Start Date 11/30/23 Plan of Care End Date 01/30/24 Therapeutic Interventions Therapeutic Interventions Balance Training,Gait Training ,Home Exercise Program,Joint Mobilizations,Manual Therapy, Neuromuscular Re-education, Patient/Caregiver Education, Self-Care/Home Management,Soft Tissue Mobilization,Taping, Therapeutic Activities, Therapeutic Exercises Modalities Cold Pack/Ice Massage,Electric Stimulation,Hot Packs, Ultrasound Next Visit Focus/Plan Next Note Type Treatment Note Next Visit Plan Assess 6MWT goal next tx. Measure AROM R knee pre/ed tx for progression. Continue to progress R knee ROM and normalize even gonzalo gait phase walking. HEP review. Incorporated uneven balance activities, SLS strengthening (SL sliders, BOSU step ups). PT POC:Knee ROM/strengthening, gait training
--- NOTE | 2024-01-10 15:22 | PT.OTN ---
Current Diagnoses Pain in right knee (01/10/24) Stiffness of right knee, not elsewhere classified (01/10/24) Other abnormalities of gait and mobility (01/10/24) Aftercare following joint replacement surgery (01/10/24) Presence of right artificial knee joint (01/10/24) Physical Therapy Treatment Note PT-OP-A Visit Information Start: 10/17/23 17:48 Freq: Status: Active Protocol: Document 01/10/24 14:32 SP (Rec: 01/10/24 16:08 SP [id number]) Out-Patient Physical Therapy Visit Information Visit Information Visit Type Treatment Note Visit Note 7 initial visits completed, 2nd set of 12 completed, 7/8 visit 3rd set approved TEXTILES PRINTER Stef shadowed pt and TEXTILES PRINTER Susanne with permission of pt. Visit Start Time 14:32 Visit Stop Time 15:22 Visit Number 25 Number of TEXTILES PRINTER Visits 3 Evaluation Information Evaluation Date 10/17/23 PT-OP-B Current Condition Start: 10/17/23 17:48 Freq: Status: Active Protocol: Document 11/30/23 10:30 DCW (Rec: 11/30/23 11:16 DCW [id number]) Current Condition History of Current Condition Onset Date 10/10/23 Current Complaints Right knee pain and stiffness s/p R TKA History of Current Condition Pt is a 58 year old female presenting one week s/p right TKA. Pt notes biggest current limiting factor is pain. Feels post-op swelling and tightness is greatly restricting her mobility. Has been consistent so far with post-op HEP, including ankle pumps, heel slides, SAQ, LAQ, and knee flexion/extension stretches. Pt using FWW for gait, heavily using UEs for stability. Has been wearing compression stockings and icing regularly. ADDENDUM 11/30/23: Pt underwent REBEL on 11/27, instructed to continue with PT, no change in frequency. PT-OP-C Subjective Start: 10/17/23 17:48 Freq: Status: Active Protocol: Document 01/10/24 14:32 SP (Rec: 01/10/24 16:08 SP [id number]) OP-PT Subjective Patient Comments Patient Comments Pt reported R knee feels stiff , compliant with stretching and ROM, forgot theraband used last tx for LAQ, need get today. PT-OP-E Functional Tests Start: 10/17/23 17:48 Freq: Status: Active Protocol: Document 12/15/23 15:24 AB (Rec: 12/15/23 16:37 AB [id number]) Functional Tests Timed Up and Go (TUG) Score 8.55 seconds without device Comments sit to stand with right knee in greater than 90 deg flexion PT-OP-G Mobility & Gait Start: 10/17/23 17:48 Freq: Status: Active Protocol: Document 10/17/23 13:45 DCW (Rec: 10/18/23 09:33 DCW [id number]) OP Gait Assessment Comments Gait Comments Ambulates with no right knee flexion, moderate right antalgia. Pt uses a step- through gait pattern and heavily relies on her UEs for support. Stair Climbing Evaluation Evaluation Level of Assist On Stairs Contact Guard Assistance Devices Stair Climbing Assistive Devices Left Railing,Right Railing Technique/Endurance Stair Climbing Direction Ascend and Descend Stair Climbing Technique Step to Step Number of Steps Climbed 4 PT-OP-K Range of Motion Start: 10/17/23 17:48 Freq: Status: Active Protocol: Document 01/10/24 14:32 SP (Rec: 01/10/24 16:08 SP [id number]) Knee Goniometric Range of Motion Knee Right Knee ROM WFL No Patient Position Supine Flexion Active (degrees) 123 Extension Active (degrees) 0 PT-OP-M Strength Start: 10/17/23 17:48 Freq: Status: Active Protocol: Document 11/30/23 10:30 DCW (Rec: 11/30/23 10:48 DCW [id number]) Knee Strength Knee Manual Muscle Testing Right Flexion (S2) 3- Fair- Extension (L3) 3- Fair- PT-OP-Q Treatments Start: 10/17/23 17:48 Freq: Status: Active Protocol: Document 01/10/24 14:32 SP (Rec: 01/10/24 16:08 SP [id number]) Cardio Equipment Bicycle (Upright) Duration (Minutes) 8 Resistance 5>6 Seat Position 5> 3 Other cued ankle ROM allowance Gym Equipment Shuttle Recovery unilateral squat Resistance 25# tea Reps/Time 5 x2 Bilateral Squats Details R knee 125? (50# tension) Resistance 75# (2 navy) Shuttle Recovery Platform Stable Therapeutic Exercises Sitting Exercises Hamstring Curl Sitting Exercise Name Hamstring Curl- 1. isometric 2 . flex/ecc ext Side right Resistance 1. Lv 2 around ankles 2. #3 achored door Reps/Minutes 1. 10 SH x10 2. not performed 01/09 Comments good mid/distal above knee tiring LAQ Sitting Exercise Name added to HEP Side right Resistance TB #2 Equipment Used chair Reps/Minutes 7 rep, 15 sec hold Comments decrease lag with reps, not measured lacking ROM. 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 Neuro Re-Education Treatment Balance Activities hurdles Details fwd Equipment 6 hurdles, foam stones Reps/Duration 4 laps Comments improved stability with reps, SBA Self-Care/Home Management Treatment Education Patient Education Body Mechanics,Home Exercise Program Other Education Ed instruction self STMs for carryover reduction in muscle tension to allow increased ROM carryover to progress squat to get items off floor. Verbal review self prone quad stretch, pt verbalized doing home for carryover ROM. Ed cues for hip/knee alignment during squat and lunges for proper form to gain ROM. PT-OP-R Modalities Start: 10/28/23 10:30 Freq: Status: Active Protocol: Document 01/10/24 14:32 SP (Rec: 01/10/24 16:08 SP [id number]) Hot Pack/Cold Pack Treatment Cold Pack Location R knee Patient Position Hooklying Patient Tolerance Good Comments x10 min, moreira within reach PT-OP-T Assessment and Plan Start: 10/17/23 17:48 Freq: Status: Active Protocol: Document 01/10/24 14:32 SP (Rec: 01/10/24 16:08 SP [id number]) Physical Therapy Assessment Goals Three Impairment Pt completes two minute walk test ambulating 140' Impairment . Business Center Attendant Goal (LTG) Pt to tolerate a full 6MWT without an assistive device, ambulating >1000' in order to demonstrate return to prior gait function LTG Duration 01/30/24 One Impairment Pt does not have an appropriate home exercise program Impairment . Short Term Goal (STG) Pt to be independent and compliant with an appropriate HEP 11/08-07/24: added mini squat, lateral stepping, heel toe gait. Heel slides use of strap foot on tball if beneficial and less pain. 01/03/24: added prone hs curl and AAROM use strap R knee flexion. 01/10/24: air squat and stationary lunges STG Duration 12/31/23 progressing 01/10/24 Assessment Summary Assessment Pt progressed AAROM on shuttle recovery 125 deg but only 123 deg end tx AROM, less 2 degrees today. Tx focused more on self STMs and functional mobility to assist R knee ROM today with reports no pain just tension distal quad above patella with improvement reduction post self STMs in sitting R knee flexion under instruction for carryover home and future at work outside PT , to allow ability get items off low shelf at work. Physical Therapy Plan Frequency and Duration Frequency of Treatment 2x/Week Plan of Care Start Date 11/30/23 Plan of Care End Date 01/30/24 Therapeutic Interventions Therapeutic Interventions Balance Training,Gait Training ,Home Exercise Program,Joint Mobilizations,Manual Therapy, Neuromuscular Re-education, Patient/Caregiver Education, Self-Care/Home Management,Soft Tissue Mobilization,Taping, Therapeutic Activities, Therapeutic Exercises Modalities Cold Pack/Ice Massage,Electric Stimulation,Hot Packs, Ultrasound Next Visit Focus/Plan Next Note Type Treatment Note Next Visit Plan PT update goals, potentially add stability. Next start: 6MWT goal progress. Continue measure progress R knee ROM, SLS balance activities to support normalize even gonzalo gait phase walking: SLS strengthening (SL sliders, BOSU step ups). PT POC:Knee ROM/strengthening, gait training
--- NOTE | 2024-01-13 13:00 | PT.OTN ---
Current Diagnoses Pain in right knee (01/13/24) Stiffness of right knee, not elsewhere classified (01/13/24) Other abnormalities of gait and mobility (01/13/24) Aftercare following joint replacement surgery (01/13/24) Presence of right artificial knee joint (01/13/24) Physical Therapy Treatment Note PT-OP-A Visit Information Start: 10/17/23 17:48 Freq: Status: Active Protocol: Document 01/13/24 12:58 TS (Rec: 01/13/24 13:48 TS [id number]) Out-Patient Physical Therapy Visit Information Visit Information Visit Type Treatment Note Visit Note 7 initial visits completed, 2nd set of 12 completed, 8/ visit 3rd set approved Visit Start Time 13:00 Visit Stop Time 13:41 Visit Number 26 Number of REHEATER HELPER Visits 4 Evaluation Information Evaluation Date 10/17/23 PT-OP-B Current Condition Start: 10/17/23 17:48 Freq: Status: Active Protocol: Document 11/30/23 10:30 DCW (Rec: 11/30/23 11:16 DCW [id number]) Current Condition History of Current Condition Onset Date 10/10/23 Current Complaints Right knee pain and stiffness s/p R TKA History of Current Condition Pt is a 58 year old female presenting one week s/p right TKA. Pt notes biggest current limiting factor is pain. Feels post-op swelling and tightness is greatly restricting her mobility. Has been consistent so far with post-op HEP, including ankle pumps, heel slides, SAQ, LAQ, and knee flexion/extension stretches. Pt using FWW for gait, heavily using UEs for stability. Has been wearing compression stockings and icing regularly. ADDENDUM 11/30/23: Pt underwent REBEL on 11/27, instructed to continue with PT, no change in frequency. PT-OP-C Subjective Start: 10/17/23 17:48 Freq: Status: Active Protocol: Document 01/13/24 12:58 TS (Rec: 01/13/24 13:48 TS [id number]) OP-PT Subjective Patient Comments Patient Comments Pt reports knee is feeling good today, used her recumbent bike at home today. Knee felt stiff yesterday after long drive to/from [place]. Continues to have discomfort in distal quad tendon. PT-OP-E Functional Tests Start: 10/17/23 17:48 Freq: Status: Active Protocol: Document 12/15/23 15:24 AB (Rec: 12/15/23 16:37 AB [id number]) Functional Tests Timed Up and Go (TUG) Score 8.55 seconds without device Comments sit to stand with right knee in greater than 90 deg flexion PT-OP-G Mobility & Gait Start: 10/17/23 17:48 Freq: Status: Active Protocol: Document 10/17/23 13:45 DCW (Rec: 10/18/23 09:33 DCW [id number]) OP Gait Assessment Comments Gait Comments Ambulates with no right knee flexion, moderate right antalgia. Pt uses a step- through gait pattern and heavily relies on her UEs for support. Stair Climbing Evaluation Evaluation Level of Assist On Stairs Contact Guard Assistance Devices Stair Climbing Assistive Devices Left Railing,Right Railing Technique/Endurance Stair Climbing Direction Ascend and Descend Stair Climbing Technique Step to Step Number of Steps Climbed 4 PT-OP-K Range of Motion Start: 10/17/23 17:48 Freq: Status: Active Protocol: Document 01/13/24 12:58 TS (Rec: 01/13/24 13:48 TS [id number]) Knee Goniometric Range of Motion Knee Right Knee ROM WFL No Patient Position Supine Flexion Active (degrees) 124 PT-OP-M Strength Start: 10/17/23 17:48 Freq: Status: Active Protocol: Document 11/30/23 10:30 DCW (Rec: 11/30/23 10:48 DCW [id number]) Knee Strength Knee Manual Muscle Testing Right Flexion (S2) 3- Fair- Extension (L3) 3- Fair- PT-OP-Q Treatments Start: 10/17/23 17:48 Freq: Status: Active Protocol: Document 01/13/24 12:58 TS (Rec: 01/13/24 13:48 TS [id number]) Cardio Equipment Recumbent Bicycle Duration (Minutes) 8 Resistance 5 Seat Position 1 Gym Equipment Shuttle Recovery unilateral squat Resistance 25# tea Reps/Time 5 x2 Bilateral Squats Details R knee 125? (50# tension) Resistance 75# (2 navy) Reps/Time 2x10 Therapeutic Exercises Standing Exercises Lunge Standing Exercise Name FWD Side bilateral Reps/Minutes 1x10 Comments Increased difficulty lunging on L side mini squat Equipment Used Rail for safety Reps/Minutes 10 Comments Demonstrates good carryover Manual Therapy Treatment Joint Mobilizations Right knee Joint R tibofemoral Direction Prone inferior/posterior tibia Neuro Re-Education Treatment Balance Activities Slider Details B slider 3 way Reps/Duration 5x1 Comments Pt cued for knee over toes, knee instability in stance leg Bilaterally reaching FWD. SLS on foam Details w/ball toss Surface blue foam Equipment // bars Comments RLE SLS, ball toss in/out of DESTINY, // bars for balance recovery. PT-OP-R Modalities Start: 10/28/23 10:30 Freq: Status: Active Protocol: Document 01/10/24 14:32 SP (Rec: 01/10/24 16:08 SP [id number]) Hot Pack/Cold Pack Treatment Cold Pack Location R knee Patient Position Hooklying Patient Tolerance Good Comments x10 min, moreira within reach PT-OP-T Assessment and Plan Start: 10/17/23 17:48 Freq: Status: Active Protocol: Document 01/13/24 12:58 TS (Rec: 01/13/24 13:48 TS [id number]) Physical Therapy Assessment Goals Three Impairment Pt completes two minute walk test ambulating 140' Impairment . [facility] Goal (LTG) Pt to tolerate a full 6MWT without an assistive device, ambulating >1000' in order to demonstrate return to prior gait function LTG Duration 01/30/24 One Impairment Pt does not have an appropriate home exercise program Impairment . Short Term Goal (STG) Pt to be independent and compliant with an appropriate HEP 11/08-07/24: added mini squat, lateral stepping, heel toe gait. Heel slides use of strap foot on tball if beneficial and less pain. 01/03/24: added prone hs curl and AAROM use strap R knee flexion. 01/10/24: air squat and stationary lunges STG Duration 12/31/23 progressing 01/10/24 Assessment Summary Assessment Continued improvement of funtional mobility with lunges and squats for bending at work for low items on shelf. Progressed pt to SLS on foam with ball toss for increased challenge to out of base of support. PT has increased knee instability on stance leg reaching to [address] O[address] slider, stable during 3 and 6 o'clock. AAROM improved to 124 deg in supine. Physical Therapy Plan Frequency and Duration Frequency of Treatment 2x/Week Plan of Care Start Date 11/30/23 Plan of Care End Date 01/30/24 Therapeutic Interventions Therapeutic Interventions Balance Training,Gait Training ,Home Exercise Program,Joint Mobilizations,Manual Therapy, Neuromuscular Re-education, Patient/Caregiver Education, Self-Care/Home Management,Soft Tissue Mobilization,Taping, Therapeutic Activities, Therapeutic Exercises Modalities Cold Pack/Ice Massage,Electric Stimulation,Hot Packs, Ultrasound Next Visit Focus/Plan Next Note Type Treatment Note Next Visit Plan Next visit: Continue to progress R knee ROM, lunges/ squats on BOSU, normalize gait gonzalo, SLS. PT POC:Knee ROM /strengthening, gait training.
--- NOTE | 2024-01-18 15:22 | PT.OTN ---
Current Diagnoses Pain in right knee (01/18/24) Stiffness of right knee, not elsewhere classified (01/18/24) Other abnormalities of gait and mobility (01/18/24) Aftercare following joint replacement surgery (01/18/24) Presence of right artificial knee joint (01/18/24) Physical Therapy Treatment Note PT-OP-A Visit Information Start: 10/17/23 17:48 Freq: Status: Active Protocol: Document 01/18/24 14:35 DCW (Rec: 01/18/24 15:21 DCW [id number]) Out-Patient Physical Therapy Visit Information Visit Information Visit Type Progress Note Visit Note 08/04 new insurance auth visits Visit Start Time 14:35 Visit Stop Time 15:25 Visit Number 27 Number of TUB WASH OPERATOR Visits 0 Evaluation Information Evaluation Date 10/17/23 PT-OP-B Current Condition Start: 10/17/23 17:48 Freq: Status: Active Protocol: Document 11/30/23 10:30 DCW (Rec: 11/30/23 11:16 DCW [id number]) Current Condition History of Current Condition Onset Date 10/10/23 Current Complaints Right knee pain and stiffness s/p R TKA History of Current Condition Pt is a 58 year old female presenting one week s/p right TKA. Pt notes biggest current limiting factor is pain. Feels post-op swelling and tightness is greatly restricting her mobility. Has been consistent so far with post-op HEP, including ankle pumps, heel slides, SAQ, LAQ, and knee flexion/extension stretches. Pt using FWW for gait, heavily using UEs for stability. Has been wearing compression stockings and icing regularly. ADDENDUM 11/30/23: Pt underwent REBEL on 11/27, instructed to continue with PT, no change in frequency. PT-OP-C Subjective Start: 10/17/23 17:48 Freq: Status: Active Protocol: Document 01/18/24 14:35 DCW (Rec: 01/18/24 15:21 DCW [id number]) OP-PT Subjective Patient Comments Patient Comments Pt planning to return to work 01/23. PT-OP-E Functional Tests Start: 10/17/23 17:48 Freq: Status: Active Protocol: Document 01/18/24 14:35 DCW (Rec: 01/18/24 15:03 DCW [id number]) Functional Tests 6 Minute Walk Test Distance 1776' Device Used None Comments 4.93 ft/sec PT-OP-G Mobility & Gait Start: 10/17/23 17:48 Freq: Status: Active Protocol: Document 01/18/24 14:35 DCW (Rec: 01/18/24 15:03 DCW [id number]) OP Gait Assessment Comments Gait Comments Ambulates WNL, no antalgia, no assistive device Stair Climbing Evaluation Evaluation Level of Assist On Stairs Independent Devices Stair Climbing Assistive Devices None Technique/Endurance Stair Climbing Direction Ascend and Descend Stair Climbing Technique Step Over Step Number of Steps Climbed 28 Stair Climbing Set # Repetitions (reps) 1 PT-OP-K Range of Motion Start: 10/17/23 17:48 Freq: Status: Active Protocol: Document 01/18/24 14:35 DCW (Rec: 01/18/24 15:03 TNW [id number]) Knee Goniometric Range of Motion Knee Left Knee ROM WFL Yes Right Knee ROM WFL No Patient Position Supine Flexion Active (degrees) 120 Flexion Passive (degrees) 123 Extension Active (degrees) 0 Extension Passive (degrees) 0 PT-OP-M Strength Start: 10/17/23 17:48 Freq: Status: Active Protocol: Document 01/18/24 14:35 DCW (Rec: 01/18/24 15:03 TNW [id number]) Knee Strength Knee Manual Muscle Testing Right Flexion (S2) 4+ Good+ Extension (L3) 4+ Good+ PT-OP-Q Treatments Start: 10/17/23 17:48 Freq: Status: Active Protocol: Document 01/18/24 14:35 DCW (Rec: 01/18/24 15:21 DCW [id number]) Cardio Equipment Recumbent Bicycle Duration (Minutes) 8 Resistance 6 Seat Position 1 Manual Therapy Treatment Soft Tissue Mobilization R leg Body Location R calf Mobilization Type Cross-Friction,Rolling Intensity/Depth Moderate Body Position Hooklying Comments manual, Pt ed to perform prior to exercise seated. Joint Mobilizations Right knee Joint R tibofemoral Direction Prone inferior/posterior tibia PT-OP-R Modalities Start: 10/28/23 10:30 Freq: Status: Active Protocol: Document 01/18/24 14:35 DCW (Rec: 01/18/24 15:22 DCW [id number]) Hot Pack/Cold Pack Treatment Cold Pack Location R knee Patient Position Hooklying Patient Tolerance Good Comments x10 min, moreira within reach PT-OP-T Assessment and Plan Start: 10/17/23 17:48 Freq: Status: Active Protocol: Document 01/18/24 14:35 DCW (Rec: 01/18/24 15:21 DC [id number]) Physical Therapy Assessment Goals Three Impairment Pt completes two minute walk test ambulating 140' Shelter Goal (LTG) Pt to tolerate a full 6MWT without an assistive device, ambulating >1000' in order to demonstrate return to prior gait function LTG Duration 01/30/24 Two Impairment Right knee AROM limited 11?-57 ? Shelter Goal (LTG) Pt to improve active knee ROM to 0?-120? 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 11/16/23: 0-88 deg AAROM flexion post manual and ther ex 01/03/24: GOAL MET: 0- 122deg AROM post exercise and manual. 01/06/24: progressed 0-125deg AROM post manual& ex. LTG Duration 01/30/24 GOAL MET One Impairment Pt does not have an appropriate home exercise program Short Term Goal (STG) Pt to be independent and compliant with an appropriate HEP 11/08-07/24: added mini squat, lateral stepping, heel toe gait. Heel slides use of strap foot on tball if beneficial and less pain. 01/03/24: added prone hs curl and AAROM use strap R knee flexion. 01/10/24: air squat and stationary lunges STG Duration 12/31/23 progressing 01/10/24 Assessment Summary Assessment Pt has made great progress since REBEL. Right knee flexion ROM consistently measuring > 120?. Gait speed has largely returned to normal, pt completed 6MWT today with a gait speed of 4.93 ft/sec. Very god overall strength, pt ready to return to work next week. Pt still struggles with uneven surface ambulation, and still has frequent right knee effusion with activity./ Should continue to benefit from skilled therapy in order to better return to work, as well as work toward uneven surface ambulation and swelling management. Physical Therapy Plan Frequency and Duration Frequency of Treatment 2x/Week Plan of Care Start Date 01/18/24 Plan of Care End Date 03/19/24 Therapeutic Interventions Therapeutic Interventions Balance Training,Gait Training ,Home Exercise Program,Joint Mobilizations,Manual Therapy, Neuromuscular Re-education, Patient/Caregiver Education, Self-Care/Home Management,Soft Tissue Mobilization,Taping, Therapeutic Activities, Therapeutic Exercises Modalities Cold Pack/Ice Massage,Electric Stimulation,Hot Packs, Ultrasound Next Visit Focus/Plan Next Note Type Treatment Note Next Visit Plan Next visit: Continue to progress R knee ROM, lunges/ squats on BOSU, normalize gait gonzalo, SLS. PT POC:Knee ROM /strengthening, gait training.
--- NOTE | 2024-01-18 15:24 | PT.OPPOC ---
Physical, Occupational & Speech Therapy At [facility] Current Diagnoses Pain in right knee (01/18/24) Stiffness of right knee, not elsewhere classified (01/18/24) Other abnormalities of gait and mobility (01/18/24) Aftercare following joint replacement surgery (01/18/24) Presence of right artificial knee joint (01/18/24) Visit Care Team Role Provider Type Ernesto Garland MD Attending Provider Non-Staff Referring Provider Specialty: Orthopedics Address: [address] [place] [address], [id number] Email: Plan Of Care PT-OP-T Assessment and Plan Start: 10/17/23 17:48 Freq: Status: Active Protocol: Document 01/18/24 14:35 DCW (Rec: 01/18/24 15:21 DCW [id number]) Physical Therapy Assessment Goals Three Impairment Pt completes two minute walk test ambulating 140' Long-Term Goal (LTG) Pt to tolerate a full 6MWT without an assistive device, ambulating >1000' in order to demonstrate return to prior gait function LTG Duration Met Two Impairment Right knee AROM limited 11?-57 ? Long-Term Goal (LTG) Pt to improve active knee ROM to 0?-120? 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 11/16/23: 0-88 deg AAROM flexion post manual and ther ex 01/03/24: GOAL MET: 0- 122deg AROM post exercise and manual. 01/06/24: progressed 0-125deg AROM post manual& ex. LTG Duration 01/30/24 GOAL MET One Impairment Pt does not have an appropriate home exercise program Short Term Goal (STG) Pt to be independent and compliant with an appropriate HEP 11/08-07/24: added mini squat, lateral stepping, heel toe gait. Heel slides use of strap foot on tball if beneficial and less pain. 01/03/24: added prone hs curl and AAROM use strap R knee flexion. 01/10/24: air squat and stationary lunges STG Duration 03/01/24 progressing 01/18/24 Assessment Summary Assessment Pt has made great progress since REBEL. Right knee flexion ROM consistently measuring > 120?. Gait speed has largely returned to normal, pt completed 6MWT today with a gait speed of 4.93 ft/sec. Very god overall strength, pt ready to return to work next week. Pt still struggles with uneven surface ambulation, and still has frequent right knee effusion with activity./ Should continue to benefit from skilled therapy in order to better return to work, as well as work toward uneven surface ambulation and swelling management. Physical Therapy Plan Frequency and Duration Frequency of Treatment 2x/Week Plan of Care Start Date 01/18/24 Plan of Care End Date 03/19/24 Therapeutic Interventions Therapeutic Interventions Balance Training,Gait Training ,Home Exercise Program,Joint Mobilizations,Manual Therapy, Neuromuscular Re-education, Patient/Caregiver Education, Self-Care/Home Management,Soft Tissue Mobilization,Taping, Therapeutic Activities, Therapeutic Exercises Modalities Cold Pack/Ice Massage,Electric Stimulation,Hot Packs, Ultrasound Next Visit Focus/Plan Next Note Type Treatment Note Next Visit Plan Next visit: Continue to progress R knee ROM, lunges/ squats on BOSU, normalize gait gonzalo, SLS. PT POC:Knee ROM /strengthening, gait training. Plan of Care Dates Plan of Care Start Date 01/18/24 Plan of Care End Date 03/19/24 Electronically Signed by: Nicholas White, PT 01/18/24 8114 If you are in agreement with this Plan of Care, please return a signed and dated copy. I have reviewed this Plan of Care and certify that the skilled therapy services above are required to meet the patient?s needs. Physician Signature Date Printed Name and Credentials Clinical Instructor Signature Printed Name and Credentials
--- NOTE | 2024-01-25 12:55 | PT.OTN ---
Current Diagnoses Pain in right knee (01/25/24) Stiffness of right knee, not elsewhere classified (01/25/24) Other abnormalities of gait and mobility (01/25/24) Aftercare following joint replacement surgery (01/25/24) Presence of right artificial knee joint (01/25/24) Physical Therapy Treatment Note PT-OP-A Visit Information Start: 10/17/23 17:48 Freq: Status: Active Protocol: Document 01/25/24 08:10 AB (Rec: 01/25/24 10:34 AB [id number]) Out-Patient Physical Therapy Visit Information Visit Information Visit Type Treatment Note Visit Note 10/02 new insurance auth visits Visit Start Time 09:50 Visit Stop Time 10:42 Visit Number 29 Number of SHIRT PRESSER Visits 2 Evaluation Information Evaluation Date 10/17/23 PT-OP-B Current Condition Start: 10/17/23 17:48 Freq: Status: Active Protocol: Document 11/30/23 10:30 DCW (Rec: 11/30/23 11:16 DCW [id number]) Current Condition History of Current Condition Onset Date 10/10/23 Current Complaints Right knee pain and stiffness s/p R TKA History of Current Condition Pt is a 58 year old female presenting one week s/p right TKA. Pt notes biggest current limiting factor is pain. Feels post-op swelling and tightness is greatly restricting her mobility. Has been consistent so far with post-op HEP, including ankle pumps, heel slides, SAQ, LAQ, and knee flexion/extension stretches. Pt using FWW for gait, heavily using UEs for stability. Has been wearing compression stockings and icing regularly. ADDENDUM 11/30/23: Pt underwent REBEL on 11/27, instructed to continue with PT, no change in frequency. PT-OP-C Subjective Start: 10/17/23 17:48 Freq: Status: Active Protocol: Document 01/25/24 08:10 AB (Rec: 01/25/24 10:34 AB [id number]) OP-PT Subjective Patient Comments Patient Comments Carina reports feeling stiff, standing a lot yesterday after a full day at work. lacking 3 deg extension to 110 deg AROM right knee start of session. PT-OP-E Functional Tests Start: 10/17/23 17:48 Freq: Status: Active Protocol: Document 01/18/24 14:35 DCW (Rec: 01/18/24 15:03 DCW [id number]) Functional Tests 6 Minute Walk Test Distance 1776' Device Used None Comments 4.93 ft/sec PT-OP-G Mobility & Gait Start: 10/17/23 17:48 Freq: Status: Active Protocol: Document 01/18/24 14:35 DCW (Rec: 01/18/24 15:03 DCW [id number]) OP Gait Assessment Comments Gait Comments Ambulates WNL, no antalgia, no assistive device Stair Climbing Evaluation Evaluation Level of Assist On Stairs Independent Devices Stair Climbing Assistive Devices None Technique/Endurance Stair Climbing Direction Ascend and Descend Stair Climbing Technique Step Over Step Number of Steps Climbed 28 Stair Climbing Set # Repetitions (reps) 1 PT-OP-K Range of Motion Start: 10/17/23 17:48 Freq: Status: Active Protocol: Document 01/18/24 14:35 DCW (Rec: 01/18/24 15:03 DCW [id number]) Knee Goniometric Range of Motion Knee Left Knee ROM WFL Yes Right Knee ROM WFL No Patient Position Supine Flexion Active (degrees) 120 Flexion Passive (degrees) 123 Extension Active (degrees) 0 Extension Passive (degrees) 0 PT-OP-M Strength Start: 10/17/23 17:48 Freq: Status: Active Protocol: Document 01/18/24 14:35 DCW (Rec: 01/18/24 15:03 DCW [id number]) Knee Strength Knee Manual Muscle Testing Right Flexion (S2) 4+ Good+ Extension (L3) 4+ Good+ PT-OP-Q Treatments Start: 10/17/23 17:48 Freq: Status: Active Protocol: Document 01/25/24 08:10 AB (Rec: 01/25/24 10:34 AB [id number]) Cardio Equipment Recumbent Bicycle Duration (Minutes) 8 Resistance 6 Seat Position 1 Therapeutic Exercises Supine Exercises SLR Side right Reps/Minutes X10 Comments Verbal cues to quad set and hold the knee straight throughout SLR hamstring stretch Supine Exercise Name from hooklying Side right Reps/Minutes 60 seconds X 2 heel slides Side right Reps/Minutes X10 Comments to 117 deg flexion Prone Exercises Prone knee flexion AROM Side right Reps/Minutes 2X10 Comments post manual and contract relax Standing Exercises glute med isometric Standing Exercise Name standing at wall Side bilateral Reps/Minutes one minute each LE Comments verbal and visual cues Manual Therapy Treatment Soft Tissue Mobilization R leg Body Location right quad and hamstring Mobilization Type Cross-Friction,Rolling Intensity/Depth Moderate Body Position Hooklying Comments prior to stretch Joint Mobilizations Patellar Joint R Patella Direction Inferior<->Superior, med/lat, CW and CCW Grade IV Body Position Supine Comments R knee straight Right knee Joint R tibofemoral Direction AP and PA Grade III Body Position Hooklying Manual Techniques PROM Type knee flexion Body Location right knee Body Position Prone Reps/Duration 60 sec X 2 PT-OP-R Modalities Start: 10/28/23 10:30 Freq: Status: Active Protocol: Document 01/25/24 08:10 AB (Rec: 01/25/24 10:34 AB [id number]) Hot Pack/Cold Pack Treatment Cold Pack Location R knee Patient Position Hooklying Patient Tolerance Good Comments x10 min, moreira within reach PT-OP-T Assessment and Plan Start: 10/17/23 17:48 Freq: Status: Active Protocol: Document 01/25/24 08:10 AB (Rec: 01/25/24 10:34 AB [id number]) Physical Therapy Assessment Goals Three Impairment Pt completes two minute walk test ambulating 140' Impairment . Long-Term Goal (LTG) Pt to tolerate a full 6MWT without an assistive device, ambulating >1000' in order to demonstrate return to prior gait function LTG Duration Met Two Impairment Right knee AROM limited 11?-57 ? Long-Term Goal (LTG) Pt to improve active knee ROM to 0?-120? 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 11/16/23: 0-88 deg AAROM flexion post manual and ther ex 01/03/24: GOAL MET: 0- 122deg AROM post exercise and manual. 01/06/24: progressed 0-125deg AROM post manual& ex. LTG Duration 01/30/24 GOAL MET One Impairment Pt does not have an appropriate home exercise program Impairment . Short Term Goal (STG) Pt to be independent and compliant with an appropriate HEP 11/08-07/24: added mini squat, lateral stepping, heel toe gait. Heel slides use of strap foot on tball if beneficial and less pain. 01/03/24: added prone hs curl and AAROM use strap R knee flexion. 01/10/24: air squat and stationary lunges STG Duration 03/01/24 progressing 01/18/24 Assessment Summary Assessment AROM right knee end of session 0 to 117. Patient does present with dynamic valgus right LE single leg mini squat without UE use. Physical Therapy Plan Frequency and Duration Frequency of Treatment 2x/Week Plan of Care Start Date 01/18/24 Plan of Care End Date 03/19/24 Next Visit Focus/Plan Next Note Type Treatment Note Next Visit Plan Next visit: Continue to progress R knee ROM, lunges/ squats on BOSU, normalize gait gonzalo, SLS. PT POC:Knee ROM /strengthening, gait training.
--- NOTE | 2024-01-27 11:07 | PT.OTN ---
Current Diagnoses Pain in right knee (01/27/24) Stiffness of right knee, not elsewhere classified (01/27/24) Other abnormalities of gait and mobility (01/27/24) Aftercare following joint replacement surgery (01/27/24) Presence of right artificial knee joint (01/27/24) Physical Therapy Treatment Note PT-OP-A Visit Information Start: 10/17/23 17:48 Freq: Status: Active Protocol: Document 01/27/24 08:10 AB (Rec: 01/27/24 11:01 AB [id number]) Out-Patient Physical Therapy Visit Information Visit Information Visit Type Treatment Note Visit Note 11/02 Visit Start Time 08:16 Visit Stop Time 09:03 Visit Number 30 Number of JAVA XML DEVELOPER Visits 3 Evaluation Information Evaluation Date 10/17/23 PT-OP-B Current Condition Start: 10/17/23 17:48 Freq: Status: Active Protocol: Document 11/30/23 10:30 DCW (Rec: 11/30/23 11:16 DCW [id number]) Current Condition History of Current Condition Onset Date 10/10/23 Current Complaints Right knee pain and stiffness s/p R TKA History of Current Condition Pt is a 58 year old female presenting one week s/p right TKA. Pt notes biggest current limiting factor is pain. Feels post-op swelling and tightness is greatly restricting her mobility. Has been consistent so far with post-op HEP, including ankle pumps, heel slides, SAQ, LAQ, and knee flexion/extension stretches. Pt using FWW for gait, heavily using UEs for stability. Has been wearing compression stockings and icing regularly. ADDENDUM 11/30/23: Pt underwent REBEL on 11/27, instructed to continue with PT, no change in frequency. PT-OP-C Subjective Start: 10/17/23 17:48 Freq: Status: Active Protocol: Document 01/27/24 08:10 AB (Rec: 01/27/24 11:01 AB [id number]) OP-PT Subjective Patient Comments Patient Comments Patient reports she is the same, but has felt stiffer since return to work, and has 3-4/10 pain right knee end of day. AROM right knee 0 to 110. Single leg squat right LE without UE use with a dynamic valgus. Patient Questionnaires Lower Extremity Functional Scale LEFS Score 57 LEFS Impairment 40 to 59% Impaired (Score 32- 47) PT-OP-E Functional Tests Start: 10/17/23 17:48 Freq: Status: Active Protocol: Document 01/18/24 14:35 DCW (Rec: 01/18/24 15:03 DCW [id number]) Functional Tests 6 Minute Walk Test Distance 1776' Device Used None Comments 4.93 ft/sec PT-OP-G Mobility & Gait Start: 10/17/23 17:48 Freq: Status: Active Protocol: Document 01/18/24 14:35 DCW (Rec: 01/18/24 15:03 DCW [id number]) OP Gait Assessment Comments Gait Comments Ambulates WNL, no antalgia, no assistive device Stair Climbing Evaluation Evaluation Level of Assist On Stairs Independent Devices Stair Climbing Assistive Devices None Technique/Endurance Stair Climbing Direction Ascend and Descend Stair Climbing Technique Step Over Step Number of Steps Climbed 28 Stair Climbing Set # Repetitions (reps) 1 PT-OP-K Range of Motion Start: 10/17/23 17:48 Freq: Status: Active Protocol: Document 01/18/24 14:35 DCW (Rec: 01/18/24 15:03 DCW [id number]) Knee Goniometric Range of Motion Knee Left Knee ROM WFL Yes Right Knee ROM WFL No Patient Position Supine Flexion Active (degrees) 120 Flexion Passive (degrees) 123 Extension Active (degrees) 0 Extension Passive (degrees) 0 PT-OP-M Strength Start: 10/17/23 17:48 Freq: Status: Active Protocol: Document 01/18/24 14:35 DCW (Rec: 01/18/24 15:03 DCW [id number]) Knee Strength Knee Manual Muscle Testing Right Flexion (S2) 4+ Good+ Extension (L3) 4+ Good+ PT-OP-Q Treatments Start: 10/17/23 17:48 Freq: Status: Active Protocol: Document 01/27/24 08:10 AB (Rec: 01/27/24 11:01 AB [id number]) Cardio Equipment Recumbent Bicycle Duration (Minutes) 9 Resistance 6 Seat Position 1 Therapeutic Exercises Supine Exercises SLR Side right Reps/Minutes X10 Comments Verbal cues to quad set and hold the knee straight throughout SLR hamstring stretch Supine Exercise Name from hooklying Side right Reps/Minutes 60 seconds X 2 heel slides Side right Reps/Minutes X10 Wall slides Supine Exercise Name with over pressure Side right Reps/Minutes X3 minutes with overpressure and AROM HS X 10 Comments 124 deg flexion Sidelying Exercises clamshell Side right Reps/Minutes X15 and X 7 Comments verbal and tactile cues for trunk position Manual Therapy Treatment Soft Tissue Mobilization R leg Body Location right quad and hamstring, Mobilization Type Cross-Friction,Rolling Intensity/Depth Moderate Body Position Hooklying Comments prior to stretch scar mobility Body Location R knee quad , peripatellar area, lat and med knee Mobilization Type Cross-Friction Intensity/Depth Moderate Body Position Supine Joint Mobilizations Patellar Joint R Patella Direction Inferior<->Superior, med/lat, CW and CCW Grade IV Body Position Supine Comments R knee straight Right knee Joint R tibofemoral Direction AP Grade IV Body Position Supine PT-OP-R Modalities Start: 10/28/23 10:30 Freq: Status: Active Protocol: Document 01/25/24 08:10 AB (Rec: 01/25/24 10:34 AB [id number]) Hot Pack/Cold Pack Treatment Cold Pack Location R knee Patient Position Hooklying Patient Tolerance Good Comments x10 min, moreira within reach PT-OP-T Assessment and Plan Start: 10/17/23 17:48 Freq: Status: Active Protocol: Document 01/27/24 08:10 AB (Rec: 01/27/24 11:01 AB [id number]) Physical Therapy Assessment Goals Three Impairment Pt completes two minute walk test ambulating 140' Impairment . Clerk Secretary Goal (LTG) Pt to tolerate a full 6MWT without an assistive device, ambulating >1000' in order to demonstrate return to prior gait function LTG Duration Met Two Impairment Right knee AROM limited 11?-57 ? Mcc Goal (LTG) Pt to improve active knee ROM to 0?-120? 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 11/16/23: 0-88 deg AAROM flexion post manual and ther ex 01/03/24: GOAL MET: 0- 122deg AROM post exercise and manual. 01/06/24: progressed 0-125deg AROM post manual& ex. LTG Duration 01/30/24 GOAL MET One Impairment Pt does not have an appropriate home exercise program Impairment . Short Term Goal (STG) Pt to be independent and compliant with an appropriate HEP 11/08-07/24: added mini squat, lateral stepping, heel toe gait. Heel slides use of strap foot on tball if beneficial and less pain. 01/03/24: added prone hs curl and AAROM use strap R knee flexion. 01/10/24: air squat and stationary lunges STG Duration 03/01/24 progressing 01/18/24 Assessment Summary Assessment AROM 0 to 114 deg. Patient with increased stiffness over last to sessions, likely due to return to work. Right LE ROM and strength continues to be limited Physical Therapy Plan Frequency and Duration Frequency of Treatment 2x/Week Plan of Care Start Date 01/18/24 Plan of Care End Date 03/19/24 Next Visit Focus/Plan Next Note Type Treatment Note Next Visit Plan Next visit: Continue to progress R knee ROM, lunges/ squats on BOSU, normalize gait gonzalo, SLS. PT POC:Knee ROM /strengthening, gait training.
--- NOTE | 2024-01-27 16:56 | PT-OP ANOTE ---
Phoned patient and left message that Tuesday appointment would be cancelled due to awaiting insurance coverage response.
--- NOTE | 2024-02-07 16:49 | PT.OPDS ---
Current Diagnoses Pain in right knee (01/27/24) Stiffness of right knee, not elsewhere classified (01/27/24) Other abnormalities of gait and mobility (01/27/24) Aftercare following joint replacement surgery (01/27/24) Presence of right artificial knee joint (01/27/24) Visit Care Team Role Provider Type Ernesto Garland MD Attending Provider Non-Staff Referring Provider Specialty: Orthopedics Address: [address] [place] [address], [phone] Email: Visit Number Visit Number 30 Discharge Summary PT-OP-B Current Condition Start: 10/17/23 17:48 Freq: Status: Active Protocol: Document 11/30/23 10:30 DCW (Rec: 11/30/23 11:16 DCW [id number]) Current Condition History of Current Condition Onset Date 10/10/23 Current Complaints Right knee pain and stiffness s/p R TKA History of Current Condition Pt is a 58 year old female presenting one week s/p right TKA. Pt notes biggest current limiting factor is pain. Feels post-op swelling and tightness is greatly restricting her mobility. Has been consistent so far with post-op HEP, including ankle pumps, heel slides, SAQ, LAQ, and knee flexion/extension stretches. Pt using FWW for gait, heavily using UEs for stability. Has been wearing compression stockings and icing regularly. ADDENDUM 11/30/23: Pt underwent REBEL on 11/27, instructed to continue with PT, no change in frequency. PT-OP-C Subjective Start: 10/17/23 17:48 Freq: Status: Active Protocol: Document 01/27/24 08:10 AB (Rec: 01/27/24 11:01 AB [id number]) OP-PT Subjective Patient Comments Patient Comments Patient reports she is the same, but has felt stiffer since return to work, and has 3-4/10 pain right knee end of day. AROM right knee 0 to 110. Single leg squat right LE without UE use with a dynamic valgus. Patient Questionnaires Lower Extremity Functional Scale LEFS Score 57 LEFS Impairment 40 to 59% Impaired (Score 32- 47) PT-OP-E Functional Tests Start: 10/17/23 17:48 Freq: Status: Active Protocol: Document 01/18/24 14:35 DCW (Rec: 01/18/24 15:03 DCW [id number]) Functional Tests 6 Minute Walk Test Distance 1776' Device Used None Comments 4.93 ft/sec PT-OP-G Mobility & Gait Start: 10/17/23 17:48 Freq: Status: Active Protocol: Document 01/18/24 14:35 DCW (Rec: 01/18/24 15:03 DCW [id number]) OP Gait Assessment Comments Gait Comments Ambulates WNL, no antalgia, no assistive device Stair Climbing Evaluation Evaluation Level of Assist On Stairs Independent Devices Stair Climbing Assistive Devices None Technique/Endurance Stair Climbing Direction Ascend and Descend Stair Climbing Technique Step Over Step Number of Steps Climbed 28 Stair Climbing Set # Repetitions (reps) 1 PT-OP-K Range of Motion Start: 10/17/23 17:48 Freq: Status: Active Protocol: Document 01/18/24 14:35 DCW (Rec: 01/18/24 15:03 DCW [id number]) Knee Goniometric Range of Motion Knee Left Knee ROM WFL Yes Right Knee ROM WFL No Patient Position Supine Flexion Active (degrees) 120 Flexion Passive (degrees) 123 Extension Active (degrees) 0 Extension Passive (degrees) 0 PT-OP-M Strength Start: 10/17/23 17:48 Freq: Status: Active Protocol: Document 01/18/24 14:35 DCW (Rec: 01/18/24 15:03 DCW [id number]) Knee Strength Knee Manual Muscle Testing Right Flexion (S2) 4+ Good+ Extension (L3) 4+ Good+ PT-OP-T Assessment and Plan Start: 10/17/23 17:48 Freq: Status: Active Protocol: Document 02/07/24 16:47 DCW (Rec: 02/07/24 16:49 DCW [id number]) Physical Therapy Assessment Goals Three Impairment Pt completes two minute walk test ambulating 140' Penitentiary Goal (LTG) Pt to tolerate a full 6MWT without an assistive device, ambulating >1000' in order to demonstrate return to prior gait function LTG Duration Met Two Impairment Right knee AROM limited 11?-57 ? Penitentiary Goal (LTG) Pt to improve active knee ROM to 0?-120? 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 11/16/23: 0-88 deg AAROM flexion post manual and ther ex 01/03/24: GOAL MET: 0- 122deg AROM post exercise and manual. 01/06/24: progressed 0-125deg AROM post manual& ex. LTG Duration 01/30/24 GOAL MET One Impairment Pt does not have an appropriate home exercise program Short Term Goal (STG) Pt to be independent and compliant with an appropriate HEP 11/08-07/24: added mini squat, lateral stepping, heel toe gait. Heel slides use of strap foot on tball if beneficial and less pain. 01/03/24: added prone hs curl and AAROM use strap R knee flexion. 01/10/24: air squat and stationary lunges STG Duration 03/01/24 progressing 01/18/24 Assessment Summary Assessment Further PT appointments denied by insurance at this time. Phoned pt and spoke with her, she feels comfortable with her current HEP, it's on me to do the strengthening and stretching now. Pt agreeable to discharge from skilled PT. Physical Therapy Plan Discharge Physical Therapy Discharge Reasons No Longer Attending PT Next Visit Focus/Plan Next Note Type Discharge Summary
== END 2024-02-15 08:33 | disposition home or self-care (01) ==
LOC: PHYS 08:15
PROVIDERS: Referring Provider Orthopaedic Surgery Adult Reconstructive Orthopaedic Surgery; Visit Provider Orthopaedic Surgery Adult Reconstructive Orthopaedic Surgery
DX: Z96.651 Presence of right artificial knee joint (principal); Z47.1 Aftercare following joint replacement surgery; M25.561 Pain in right knee; M25.661 Stiffness of right knee, not elsewhere classified; R26.89 Other abnormalities of gait and mobility
CPT/HCPCS: 97010; 97110; 97112; 97116; 97140; 97161; 97535